=== PATIENT | female | born 1940 | race American Indian/Alaskan Native ===

== ENCOUNTER 2018-02-17 22:11 | Inpatient (IN) | payer MEDICAID, MEDICARE ==
[2018-02-17 22:16] VITALS: BMI 27.8
--- NOTE | 2018-02-17 22:34 | ED PDOC ---
Arrival/HPI - General Chief Complaint: Respiratory Distress Time Seen by Provider: 02/17/18 22:30 Historian: Patient, Intermediate - History of Present Illness Narrative History of Present Illness (Text): 02/17/18 22:30 Thao Bishop is a 77 year old female, whose past medical history include NSTEMI, COPD, CHF, respiratory failure, hypertension, diabetes, hyperlipidemia, sacral decubitus, schizophrenia, and dementia, who presents to the ED sent from intermediate for worsening shortness of breath. As per intermediate notes, patient was recently discharged from [facility] following transfer from [facility] for acute respiratory failure/NSTEMI. Patient was recently extubated on 02/06/2018. Limited HPI and ROS secondary to patient's dementia. Symptom Onset: Gradual Symptom Course: Worsening Activities at Onset: Light Context: Home Past Medical History - Provider Review Nursing Documentation Reviewed: Yes - Infectious Disease Hx of Infectious Diseases: None - Cardiac Hx Congestive Heart Failure: Yes Hx Hypertension: Yes Other/Comment: NSTEMI - Pulmonary Hx Chronic Obstructive Pulmonary Disease (COPD): Yes - Neurological Hx Dementia: Yes - Endocrine/Metabolic Hx Diabetes Mellitus Type 2: Yes - Hematological/Oncological Hx Anemia: Yes - Musculoskeletal/Rheumatological Other/Comment: Sacral pressure ulcer - Psychiatric Hx Schizophrenia: Yes Hx Substance Use: No - Anesthesia Hx Anesthesia: No Family/Social History - Physician Review Nursing Documentation Reviewed: Yes Family/Social History: Unknown Family HX Smoking Status: Never Smoked Hx Alcohol Use: No Hx Substance Use: No Allergies/Home Meds Allergies/Adverse Reactions: Allergies No Known Allergies Allergy (Verified 02/17/18 22:16) Review of Systems - Review of Systems Systems not reviewed;Unavailable: Dementia Respiratory: SOB Physical Exam Vital Signs Reviewed: Yes Vital Signs Pulse Resp BP Pulse Ox 02/17/18 22:23 89 26 H 174/96 H 100 Temperature: Afebrile Blood Pressure: Hypertensive Pulse: Regular Respiratory Rate: Normal Appearance: Positive for: Non-Toxic, Comfortable Pain Distress: None Mental Status: Positive for: other (Alert) - Systems Exam Head: Present: Atraumatic, Normocephalic Pupils: Present: PERRL Extroacular Muscles: Present: EOMI Conjunctiva: Present: Normal Mouth: Present: Moist Mucous Membranes Neck: Present: Normal Range of Motion Respiratory/Chest: Present: Decreased Breath Sounds (Decreased breath sounds bilaterally). No: Respiratory Distress, Accessory Muscle Use Cardiovascular: Present: Regular Rate and Rhythm, Normal S1, S2. No: Murmurs Abdomen: No: Tenderness, Distention, Peritoneal Signs Back: Present: Normal Inspection Upper Extremity: Present: Normal Inspection. No: Cyanosis, Edema Lower Extremity: Present: Normal Inspection. No: Edema Neurological: Present: GCS=15, CN II-XII Intact Skin: Present: Warm, Dry, Normal Color. No: Rashes Psychiatric: Present: Alert Medical Decision Making ED Course and Treatment: 02/17/18 22:30 Impression: 77 year old female brought in by EMS sent from intermediate for shortness of breath. Plan: -- EKG -- CXR -- Labs, cardiac enzymes, BNP -- Reassess and disposition Prior Visits: Notes and results from previous visits were reviewed. Progress Notes: Reviewed EKG, NSR at [address] bpm[address] Non-specific ST/T wave changes. 02/17/18 23:05 CXR reviewed, shows mildly increased pulmonary vascular markings. 02/18/18 00:[address] Granados, seat cover installer, who is aware and agrees to evaluate pt. president and chief operating officer notified. 02/18/18 01:[address] Granados, present in ED to evaluate pt. States pt can go to a telemetry bed. 02/18/18 01:[address] Rodriguez, who is aware and agrees with plan. Accepts pt in to her service. Pt will be admitted to Telemetry for COPD exacerbation and CHF. 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 I have reviewed the chart and agree that the record accurately reflects my personal performance of the history, physical exam, medical decision making, and the department course for this patient. I have also personally directed, reviewed, and agree with the discharge instructions and disposition. Disposition/Present on Arrival - Present on Arrival Any Indicators Present on Arrival: No History of DVT/PE: No History of Uncontrolled Diabetes: Yes Urinary Catheter: No History of Decub. Ulcer: No History Surgical Site Infection Following: None - Disposition Have Diagnosis and Disposition been Completed?: Yes Diagnosis: COPD exacerbation, CHF (congestive heart failure) Disposition: HOSPITALIZED Disposition Time: :44 Patient Plan: Admission Condition: STABLE Discharge Instructions (ExitCare): Heart Failure (ED) Referrals: Deon Swenson MD [Primary Care Provider] - Follow up with primary Forms: [employer] (Bhutanese)
[2018-02-17 23:06] LABS: HEMOGLOBIN 10.1 g/dL (12.0-16.0); MEAN CELL VOLUME 94.7 fl (80.0-105.0); MEAN CORPUSCULAR HEMOGLOBIN 29.9 pg (25.0-35.0); MEAN CORPUSCULAR HGB CONC 31.6 g/dl (31.0-37.0); MEAN PLATELET VOLUME 11.6 fl (7.0-11.0); RBC 3.38 10^6/uL (3.5-6.1); RED CELL DISTRIBUTION WIDTH 13.9 % (11.5-14.5); WHITE BLOOD COUNT 7.2 10^3/ul (4.5-11.0)
[2018-02-17] MEDS ORDERED: Albuterol-Ipratrop 3 mg / 0.5 (3 ml) UD IH STA (23:10)
[2018-02-17 23:15] LABS: INR 1.01; PROTHROMBIN TIME 11.5 SECONDS (9.4-12.5)
[2018-02-17 23:25] LABS: ALB/GLOB RATIO 1.3 (1.1-1.8); ALBUMIN 4.3 g/dL (3.0-4.8); ALT/SGPT 44 U/L (7-56); AST/SGOT 50 U/L (14-36); BLOOD UREA NITROGEN 41 mg/dL (7-21); CALCIUM 9.6 mg/dL (8.4-10.5); GFR NON-AFRICAN AMERICAN > 60
[2018-02-17 23:28] LABS: B-TYPE NATRIURETIC PEPTIDE 3810 pg/mL (0-450); TROPONIN I 0.02 ng/mL
[2018-02-17 23:50] LABS: ARTERIAL BLOOD GAS HCO3 37.9 mmol/L (21-28); ARTERIAL BLOOD GAS HEMOGLOBIN 8.6 g/dL (11.7-17.4); ARTERIAL BLOOD GAS O2 CAPACITY 12.8 mL/dl (16-24); ARTERIAL BLOOD GAS O2 CONTENT 12.8 ML/dl (15-23); ARTERIAL BLOOD GAS O2 SAT 99.9 % (95-98); ARTERIAL BLOOD GAS PCO2 64 mm/Hg (35-45); ARTERIAL BLOOD GAS PH 7.38 (7.35-7.45); ARTERIAL BLOOD GAS TCO2 39.9 mmol.L (22-28)
[2018-02-18] MEDS ORDERED: Albuterol-Ipratrop 3 mg / 0.5 (3 ml) UD IH STA (01:04)
[2018-02-18] MEDS ORDERED: Albuterol-Ipratrop 3 mg / 0.5 (3 ml) UD IH PRN (01:42)
--- NOTE | 2018-02-18 03:06 | CP.PCM.CON ---
<Isidro Warren - Last Filed: 02/18/18 04:04> History of Present Illness - History of Present Illness History of Present Illness: Isidro Warren PGY1 Consult Note for Dr Granados Pt is a 77 yo female with a PMH of NSTEMI, COPD, CHF, HTN, DM, HLD, OH, sacral decubitus ulcer, schizophrenia and dementia who presents to the ED from the residential with complaints of SOB relieved with BiPAP. ICU consulted for SOB. Pt recently had an OH on December 21, while in [facility], she has recently been at the residential. While at the residential at about 8pm the pt started complaining of SOB to her daughter. Pt's daughter Randy is present at bedside relating the history. She states that the pt had a cough but was not producing sputum. Pt normally uses BiPAP at night, and reported that she was having trouble breathing, SOB. Pt denies fever, chills, chest pain. A 12 point ROS was obtained and added to the HPI where appropriate. PMH: NSTEMI, COPD, CHF, HTN, DM, HLD, OH, sacral decubitus ulcer, schizophrenia and dementia PSH: breast lumpectomy 9 years ago FH: Mother "heart issues" SH: tobacco 1ppd for 25y quit 10 years ago, denies alcohol, denies drugs Home meds: please refer to chart Allergies: NKDA Review of Systems - Review of Systems Review of Systems: a 12 point ROS was obtained and added to the HPI where appropriate Past Patient History - Infectious Disease Hx of Infectious Diseases: None - Past Social History Smoking Status: Never Smoked - CARDIAC Hx Congestive Heart Failure: Yes Hx Hypertension: Yes Other/Comment: NSTEMI - PULMONARY Hx Chronic Obstructive Pulmonary Disease (COPD): Yes - NEUROLOGICAL Hx Dementia: Yes - ENDOCRINE/METABOLIC Hx Diabetes Mellitus Type 2: Yes - HEMATOLOGICAL/ONCOLOGICAL Hx Anemia: Yes - MUSCULOSKELETAL/RHEUMATOLOGICAL Other/Comment: Sacral pressure ulcer - PSYCHIATRIC Hx Schizophrenia: Yes Hx Substance Use: No - ANESTHESIA Hx Anesthesia: No Meds Allergies/Adverse Reactions: Allergies Allergy/AdvReac Type Severity Reaction Status Date / Time No Known Allergies Allergy Verified 02/17/18 22:16 - Medications Medications: Current Medications Albuterol/Ipratropium (Duoneb 3 Mg/0.5 Mg (3 Ml) Ud) 3 ml IH Q4H PRN PRN Reason: Shortness of Breath Physical Exam - Head Exam Head Exam: ATRAUMATIC, NORMOCEPHALIC - Eye Exam Eye Exam: absent: Scleral icterus - ENT Exam ENT Exam: Mucous Membranes Moist - Respiratory Exam Respiratory Exam: Clear to Auscultation Bilateral. absent: Accessory Muscle U se, Respiratory Distress Additional comments: on BiPAP - Cardiovascular Exam Cardiovascular Exam: RRR, +S1, +S2 - GI/Abdominal Exam GI & Abdominal Exam: Normal Bowel Sounds, Soft. absent: Tenderness - Extremities Exam Extremities exam: Negative for: calf tenderness - Neurological Exam Neurological exam: Oriented x3 Results - Vital Signs Recent Vital Signs: Last Vital Signs Temp Pulse 75 02/18/18 02:04 Resp 22 02/18/18 01:05 BP 148/64 02/18/18 02:00 Pulse Ox 99 02/18/18 01:05 - Labs Result Diagrams: 02/17/18 22:55 02/17/18 22:55 Labs: Laboratory Results - last 24 hr 02/17/18 02/17/18 02/17/18 22:55 22:55 22:55 WBC 7.2 RBC 3.38 L Hgb 10.1 L Hct 32.0 L MCV 94.7 MCH 29.9 MCHC 31.6 RDW 13.9 Plt Count 177 MPV 11.6 H PT 11.5 INR 1.01 APTT 27.0 pCO2 pO2 HCO3 ABG pH ABG Total CO2 ABG O2 Saturation ABG O2 Content ABG Base Excess ABG Hemoglobin ABG Carboxyhemoglobin POC ABG HHb (Measured) ABG Methemoglobin ABG O2 Capacity Hgb O2 Saturation FiO2 Sodium 140 Potassium 3.8 Chloride 95 L Carbon Dioxide 36 H Anion Gap 13 BUN 41 H Creatinine 0.9 Est GFR ( Amer) > 60 Est GFR (Non-Af Amer) > 60 Random Glucose 340 H* Calcium 9.6 Total Bilirubin 0.6 AST 50 H ALT 44 Alkaline Phosphatase 85 Lactate Dehydrogenase 626 Total Creatine Kinase 21 L Troponin I 0.02 NT-Pro-B Natriuret Pep 3810 H Total Protein 7.6 Albumin 4.3 Globulin 3.4 Albumin/Globulin Ratio 1.3 02/17/18 23:30 WBC RBC Hgb Hct MCV MCH MCHC RDW Plt Count MPV PT INR APTT pCO2 64 H pO2 386.0 H HCO3 37.9 H ABG pH 7.38 ABG Total CO2 39.9 H ABG O2 Saturation 99.9 H ABG O2 Content 12.8 L ABG Base Excess 11.2 H ABG Hemoglobin 8.6 L ABG Carboxyhemoglobin 1.5 POC ABG HHb (Measured) 0.1 ABG Methemoglobin 1.2 ABG O2 Capacity 12.8 L Hgb O2 Saturation 97.3 FiO2 100.0 Sodium Potassium Chloride Carbon Dioxide Anion Gap BUN Creatinine Est GFR ( Amer) Est GFR (Non-Af Amer) Random Glucose Calcium Total Bilirubin AST ALT Alkaline Phosphatase Lactate Dehydrogenase Total Creatine Kinase Troponin I NT-Pro-B Natriuret Pep Total Protein Albumin Globulin Albumin/Globulin Ratio Assessment & Plan - Assessment and Plan (Free Text) Assessment: Pt is a 77 yo female with a PMH of NSTEMI, COPD, CHF, HTN, DM, HLD, OH, sacral decubitus ulcer, schizophrenia and dementia who presents to the ED from the residential with complaints of SOB relieved with BiPAP. ICU consulted for SOB. Plan: Likely COPD exacerbation vs CHF vs LAXMI COPD exacerbation would recommend steroids, duonebs CHF exacerbation - can increase the dose of home lasix - recommend stict I/O, daily wt - recommend Na restriction and fluid restriction LAXMI - can continue with nightly BiPAP - ABG noted adn reviewed, AAOx3 DM - can continue with ISS for now and diabetic diet HTN - please continue with home meds CAD - please continue home meds Would recommend GI and DVT ppx, please monitor on Tele Please reconsult ICU if needed Pt seen, examined, assessment and plan discussed with Dr Darwin Warren PGY1, Internal Medicine Resident - Date & Time Date: 02/18/18 Time: 04:03 <Farida Granados - Last Filed: 02/18/18 07:00> Meds - Medications Medications: Current Medications Albuterol/Ipratropium (Duoneb 3 Mg/0.5 Mg (3 Ml) Ud) 3 ml IH Q4H PRN PRN Reason: Shortness of Breath Results - Vital Signs Recent Vital Signs: Last Vital Signs Temp 99.1 F 02/18/18 06:00 Pulse 75 02/18/18 06:00 Resp 20 02/18/18 06:00 BP 153/72 H 02/18/18 06:00 Pulse Ox 100 02/18/18 04:09 - Labs Result Diagrams: 02/17/18 22:55 02/17/18 22:55 Labs: Laboratory Results - last 24 hr 02/17/18 02/17/18 02/17/18 22:55 22:55 22:55 WBC 7.2 RBC 3.38 L Hgb 10.1 L Hct 32.0 L MCV 94.7 MCH 29.9 MCHC 31.6 RDW 13.9 Plt Count 177 MPV 11.6 H PT 11.5 INR 1.01 APTT 27.0 pCO2 pO2 HCO3 ABG pH ABG Total CO2 ABG O2 Saturation ABG O2 Content ABG Base Excess ABG Hemoglobin ABG Carboxyhemoglobin POC ABG HHb (Measured) ABG Methemoglobin ABG O2 Capacity Hgb O2 Saturation FiO2 Sodium 140 Potassium 3.8 Chloride 95 L Carbon Dioxide 36 H Anion Gap 13 BUN 41 H Creatinine 0.9 Est GFR ( Amer) > 60 Est GFR (Non-Af Amer) > 60 Random Glucose 340 H* Calcium 9.6 Total Bilirubin 0.6 AST 50 H ALT 44 Alkaline Phosphatase 85 Lactate Dehydrogenase 626 Total Creatine Kinase 21 L Troponin I 0.02 NT-Pro-B Natriuret Pep 3810 H Total Protein 7.6 Albumin 4.3 Globulin 3.4 Albumin/Globulin Ratio 1.3 02/17/18 23:30 WBC RBC Hgb Hct MCV MCH MCHC RDW Plt Count MPV PT INR APTT pCO2 64 H pO2 386.0 H HCO3 37.9 H ABG pH 7.38 ABG Total CO2 39.9 H ABG O2 Saturation 99.9 H ABG O2 Content 12.8 L ABG Base Excess 11.2 H ABG Hemoglobin 8.6 L ABG Carboxyhemoglobin 1.5 POC ABG HHb (Measured) 0.1 ABG Methemoglobin 1.2 ABG O2 Capacity 12.8 L Hgb O2 Saturation 97.3 FiO2 100.0 Sodium Potassium Chloride Carbon Dioxide Anion Gap BUN Creatinine Est GFR ( Amer) Est GFR (Non-Af Amer) Random Glucose Calcium Total Bilirubin AST ALT Alkaline Phosphatase Lactate Dehydrogenase Total Creatine Kinase Troponin I NT-Pro-B Natriuret Pep Total Protein Albumin Globulin Albumin/Globulin Ratio Attending/Attestation - Attestation I have personally seen and examined this patient.: Yes I have fully participated in the care of the patient.: Yes I have reviewed all pertinent clinical information: Yes Notes (Text): 02/18/18 07:00 Patient was seen when she was in the ER. Agree with history,physical examination,assessment and plan.
[2018-02-18] MEDS ORDERED: Albuterol-Ipratrop 3 mg / 0.5 (3 ml) UD IH SCH (06:00)
[2018-02-18] MEDS ORDERED: MethylPREDNISolone 40 mg Vial IVP SCH (06:00)
[2018-02-18] MEDS ORDERED: guaiFENesin DM 100 mg-10 mg/5 ml UD PO PRN (08:45)
--- NOTE | 2018-02-18 09:31 | CARD ---
APPROVED REPORT Date of service: 02/17/2018 EKG Measurement Heart [id number] <Conclusion> Normal sinus rhythm PRWP V 1 - 4 NSSTW changes Prolonged QTc
[2018-02-18] MEDS ORDERED: Enoxaparin 40 mg Syringe SC SCH (10:00)
[2018-02-18 10:06] LABS: IRON 33 ug/dL (45-180)
[2018-02-18 10:15] LABS: % IRON SATURATION 11 % (20-55); TOTAL IRON BINDING CAPACITY 296 ug/dL (265-497)
[2018-02-18] MEDS: cefTRIAXone 1 gm 1 GM/100 ML BAG IVPB SCH (10:52)
[2018-02-18] MEDS ORDERED: Insulin Reg-MEDIUM-Coverage SC SCH (11:30)
--- NOTE | 2018-02-18 13:27 | RAD ---
Date of service: 02/17/2018 HISTORY: Shortness of breath. COMPARISON: No prior. FINDINGS: LUNGS: No active pulmonary disease. PLEURA: No significant pleural effusion identified, no pneumothorax apparent. CARDIOVASCULAR: No radiographic findings to suggest acute or significant cardiovascular disease. OSSEOUS STRUCTURES: No significant abnormalities. VISUALIZED UPPER ABDOMEN: Normal. OTHER FINDINGS: None. IMPRESSION: No active disease.
[2018-02-18] MEDS ORDERED: Insulin Detemir 100 units/ml Vial (Levemir) SC ONE (13:32)
[2018-02-18] MEDS: Levalbuterol 0.63 MG/3 ML Inhal Soln UD IH SCH ×2 (13:32→19:35)
[2018-02-18] MEDS ORDERED: Insulin Lispro 1 UNITS/0.01 ML SC ONE (13:35)
[2018-02-18] MEDS: MethylPREDNISolone 40 mg Vial IVP SCH ×2 (13:50→18:35)
[2018-02-18 17:14] LABS: FOLATE > 20.0 ng/mL
[2018-02-18] MEDS: Insulin Reg-HIGH-Coverage SC SCH ×2 (17:14→22:38)
[2018-02-18] MEDS ORDERED: Insulin Regular 1 UNITS/0.01 ML ML IV ONE (18:41)
[2018-02-18] MEDS: Budesonide 0.25 mg/2 ml Inhal Susp UD IH SCH (19:35)
[2018-02-18] MEDS: Arformoterol 15 mcg/2 ml Inh Sol IH SCH (19:35)
[2018-02-18] MEDS ORDERED: Arformoterol 15 mcg/2 ml Inh Sol IH SCH (20:00)
[2018-02-18] MEDS ORDERED: Insulin Regular 1 UNITS/0.01 ML ML IV STA (20:22)
[2018-02-18] MEDS: Sodium Chloride 0.45% 1,000 ML IV SCH (20:41)
[2018-02-18] MEDS ORDERED: Insulin Regular 100 UNITS in Sodium Chloride 0.9% 99 ML IV PRN (21:46)
[2018-02-18] MEDS: Insulin Detemir 100 units/ml Vial (Levemir) SC SCH (22:37)
--- NOTE | 2018-02-19 00:28 | CP.PCM.CON ---
<Laith Daviesophe - Last Filed: 02/19/18 00:25> History of Present Illness - History of Present Illness History of Present Illness: Edgard Davies PGY 2 - IM Resident - ICU Consult Note for Dr. Granados Consult: Hyperglycemia >500 requiring Insulin gtt HPI: 77 yo female with a PMH of NSTEMI, COPD, CHF, HTN, DM, HLD, NE, sacral decubitus ulcer, schizophrenia and dementia who was admitted for shortness of breath. Patient admitted for COPD exacerbation. Patient placed on steroids. Patient blood glucose showing elevation over course of admission with insulin coverage likely secondary to steroid administration. Patient noted to have elevated glucose of >500 without evidence of anion gap. Patient was placed on insulin drip and transferred to ICU for further monitoring. Patient denies chest pain, shortness of breath, abdominal pain, nausea, vomiting, fever, chills. PMH: NSTEMI, COPD, CHF, HTN, DM, HLD, NE, sacral decubitus ulcer, schizophrenia and dementia PSH: breast lumpectomy 9 years ago FH: Mother "heart issues" SH: tobacco 1ppd for 25y quit 10 years ago, denies alcohol, denies drugs Home meds: please refer to chart Allergies: NKDA Review of Systems - Review of Systems All systems: reviewed and no additional remarkable complaints except (as mentioned in HPI) Past Patient History - Infectious Disease Hx of Infectious Diseases: None - Past Social History Smoking Status: Never Smoked - CARDIAC Hx Congestive Heart Failure: Yes Hx Hypertension: Yes Other/Comment: NSTEMI - PULMONARY Hx Chronic Obstructive Pulmonary Disease (COPD): Yes - NEUROLOGICAL Hx Dementia: Yes - HEENT Hx HEENT Problems: No - RENAL Hx Chronic Kidney Disease: No - ENDOCRINE/METABOLIC Hx Diabetes Mellitus Type 2: Yes - HEMATOLOGICAL/ONCOLOGICAL Hx Anemia: Yes - INTEGUMENTARY Hx Dermatological Problems: No - MUSCULOSKELETAL/RHEUMATOLOGICAL Other/Comment: Sacral pressure ulcer - GASTROINTESTINAL Hx Gastrointestinal Disorders: No - GENITOURINARY/GYNECOLOGICAL Hx Genitourinary Disorders: No - PSYCHIATRIC Hx Schizophrenia: Yes Hx Substance Use: No - SURGICAL HISTORY Hx Surgeries: No - ANESTHESIA Hx Anesthesia: No Meds Allergies/Adverse Reactions: Allergies Allergy/AdvReac Type Severity Reaction Status Date / Time No Known Allergies Allergy Verified 02/17/18 22:16 - Medications Medications: Current Medications Acetaminophen (Tylenol 325mg Tab) 650 mg PO Q6H PRN PRN Reason: Fever >100.4 F Arformoterol Tartrate (Brovana) 15 mcg IH [id number] [facility] Last Admin: 02/18/18 19:35 Dose: 15 mcg Aspirin (Ecotrin) 81 mg PO DAILY [facility] Budesonide (Pulmicort Respules) 0.25 mg IH [id number] [facility] Last Admin: 02/18/18 19:35 Dose: 0.25 mg Clopidogrel Bisulfate (Plavix) 75 mg PO DAILY [facility] Guaifenesin/Dextromethorphan (Robitussin Dm) 5 ml PO Q4H PRN PRN Reason: Cough Hydralazine HCl (Apresoline) 10 mg IVP Q6 PRN PRN Reason: Systolic Blood Pressure Ceftriaxone Sodium (Rocephin 1 Gram Ivpb) 1 gm in 100 mls @ 100 mls/hr IVPB DAILY [facility]; Protocol Last Admin: 02/18/18 10:52 Dose: 100 mls/hr Sodium Chloride (Sodium Chloride 0.45%) 1,000 mls @ 50 mls/hr IV .Q20H [facility] Last Admin: 02/18/18 20:41 Dose: 50 mls/hr Insulin Human Regular 100 (units/ Sodium Chloride) 100 mls @ 10 mls/hr IV .Q10H PRN; Protocol PRN Reason: TITRATE PER MD ORDER Insulin Detemir (Levemir) 25 unit SC BRK [facility] Insulin Detemir (Levemir) 25 unit SC HS [facility] Last Admin: 02/18/18 22:37 Dose: 25 units Insulin Human Regular (Humulin R High) 0 units SC ACHS [facility]; Protocol Last Admin: 02/18/18 22:38 Dose: 4 unit Levalbuterol HCl (Xopenex) 0.63 mg IH [id number] [facility] Last Admin: 02/18/18 19:35 Dose: 0.63 mg Methylprednisolone (Solu-Medrol) 40 mg IVP Q8H [facility] Last Admin: 02/18/18 18:35 Dose: 40 mg Physical Exam - Head Exam Head Exam: ATRAUMATIC, NORMAL INSPECTION, NORMOCEPHALIC - Eye Exam Eye Exam: PERRL - ENT Exam ENT Exam: Mucous Membranes Moist, Normal External Ear Exam, Normal Oropharynx - Neck Exam Neck exam: Positive for: Full Rom - Respiratory Exam Respiratory Exam: Clear to Auscultation Bilateral, NORMAL BREATHING PATTERN. absent: Rales, Rhonchi, Wheezes, Stridor - Cardiovascular Exam Cardiovascular Exam: REGULAR RHYTHM, +S1, +S2 - GI/Abdominal Exam GI & Abdominal Exam: Normal Bowel Sounds, Soft - Neurological Exam Neurological exam: Alert, Oriented x3 - Psychiatric Exam Psychiatric exam: Normal Affect, Normal Mood - Skin Skin Exam: Dry, Intact Results - Vital Signs Recent Vital Signs: Last Vital Signs Temp 98.7 F 02/18/18 17:59 Pulse 102 H 02/18/18 18:00 Resp 20 02/18/18 17:59 BP 154/70 H 02/18/18 17:59 Pulse Ox 100 02/18/18 17:59 - Labs Result Diagrams: 02/17/18 22:55 02/18/18 17:25 Labs: Laboratory Results - last 24 hr 02/18/18 02/18/18 02/18/18 09:30 09:30 09:30 POC Glucose (mg/dL) Random Glucose Iron 33 L TIBC 296 % Saturation 11 L Ferritin 115.0 Vitamin B12 828 Folate > 20.0 Thyroxine (T4) 16.9 H 02/18/18 02/18/18 02/18/18 12:33 12:35 13:26 POC Glucose (mg/dL) > 500 H* 478 H* > 500 H* Random Glucose Iron TIBC % Saturation Ferritin Vitamin B12 Folate Thyroxine (T4) 02/18/18 02/18/18 02/18/18 15:12 17:05 17:07 POC Glucose (mg/dL) > 500 H* > 500 H* > 500 H* Random Glucose Iron TIBC % Saturation Ferritin Vitamin B12 Folate Thyroxine (T4) 02/18/18 02/18/18 02/18/18 17:25 20:09 21:21 POC Glucose (mg/dL) 489 H* > 500 H* Random Glucose 579 H* D Iron TIBC % Saturation Ferritin Vitamin B12 Folate Thyroxine (T4) 02/18/18 02/18/18 22:27 23:38 POC Glucose (mg/dL) 470 H* 440 H* Random Glucose Iron TIBC % Saturation Ferritin Vitamin B12 Folate Thyroxine (T4) Assessment & Plan - Assessment and Plan (Free Text) Assessment: 77 yo female with a PMH of NSTEMI, COPD, CHF, HTN, DM, HLD, NE, sacral decubitus ulcer, schizophrenia and dementia with hyperglycemia. Patient placed on insulin gtt as ordered by primary care and thus to be transferred to ICU for management Plan: Neuro - AAOx3 - Patient with hx of dementia, unknown baseline - Monitor for neuro changes Cardiovascular HTN - Hydralazine prn when SBP >180 - Maintain MAP >65mmHg CHF - s - last echo showing EF - continue - Strict I/O - Daily weights Hx of CAD -continue aspirin, plavix Pulmonary - Maintain SaO2 88-92% - Continue nasal cannula - Continue with biPAP COPD exacerbation - Continue methylprednisoolne 40mg Q8H - Continue duoneb treatments - Rocephin 1gm Daily - Brovana, Pulmicort, Xopenex GI - Protonix - Monitor bm - Zofran for nausea Heme - H/H stable, VSS - Hemodynamically stable - Anemia, likely acute on chronic anemia - monitor, transfuse for goal of Hbg >8 Endo DM2 with hyperglycemia without evidence of AG MA - NPO, IVF 50mL/Hr NS - Levemir 25 BID as per primary - IV insulin gtt - Glucose finger stick Q1H while on inuslin gtt - Stop insulin gtt when blood glucose is <300 - Q4H - ISS high after insulin gtt turned off ID - Afebrile - No leukocytosis Psych -hx of schizophrenia, dementia -psych following, f/u recs DVT ppx: SCD GI ppx: Protonix Diet: NPO Patient seen, case and plan discussed with attending, Dr. Granados - Date & Time Date: 02/19/18 Time: 00:29 <Farida Granados - Last Filed: 02/19/18 03:53> Meds - Medications Medications: Current Medications Acetaminophen (Tylenol 325mg Tab) 650 mg PO Q6H PRN PRN Reason: Fever >100.4 F Arformoterol Tartrate (Brovana) 15 mcg IH [id number] [facility] Last Admin: 02/18/18 19:35 Dose: 15 mcg Aspirin (Ecotrin) 81 mg PO DAILY [facility] Budesonide (Pulmicort Respules) 0.25 mg IH [id number] [facility] Last Admin: 02/18/18 19:35 Dose: 0.25 mg Clopidogrel Bisulfate (Plavix) 75 mg PO DAILY [facility] Guaifenesin/Dextromethorphan (Robitussin Dm) 5 ml PO Q4H PRN PRN Reason: Cough Hydralazine HCl (Apresoline) 10 mg IVP Q6 PRN PRN Reason: Systolic Blood Pressure Last Admin: 02/19/18 02:00 Dose: 10 mg Ceftriaxone Sodium (Rocephin 1 Gram Ivpb) 1 gm in 100 mls @ 100 mls/hr IVPB DAILY [facility]; Protocol Last Admin: 02/18/18 10:52 Dose: 100 mls/hr Sodium Chloride (Sodium Chloride 0.45%) 1,000 mls @ 50 mls/hr IV .Q20H [facility] Last Admin: 02/18/18 20:41 Dose: 50 mls/hr Insulin Human Regular 100 (units/ Sodium Chloride) 100 mls @ 10 mls/hr IV .Q10H PRN; Protocol PRN Reason: TITRATE PER MD ORDER Last Admin: 02/19/18 00:30 Dose: 12 units/hr, 12 mls/hr Insulin Detemir (Levemir) 25 unit SC BRK [facility] Insulin Detemir (Levemir) 25 unit SC HS [facility] Last Admin: 02/18/18 22:37 Dose: 25 units Insulin Human Regular (Humulin R High) 0 units SC ACHS [facility]; Protocol Last Admin: 02/18/18 22:38 Dose: 4 unit Levalbuterol HCl (Xopenex) 0.63 mg IH [id number] [facility] Last Admin: 02/19/18 03:36 Dose: 0.63 mg Methylprednisolone (Solu-Medrol) 40 mg IVP Q8H [facility] Last Admin: 02/19/18 00:59 Dose: 40 mg Ondansetron HCl (Zofran Inj) 4 mg IVP Q6H PRN PRN Reason: Nausea/Vomiting Pantoprazole Sodium (Protonix Inj) 40 mg IVP DAILY [facility] Results - Vital Signs Recent Vital Signs: Last Vital Signs Temp 98.2 F 02/19/18 00:15 Pulse 91 H 02/19/18 02:00 Resp 18 02/19/18 01:30 BP 166/115 H 02/19/18 02:20 Pulse Ox 100 02/19/18 01:30 - Labs Result Diagrams: 02/17/18 22:55 02/18/18 17:25 Labs: Laboratory Results - last 24 hr 02/18/18 02/18/18 02/18/18 09:30 09:30 09:30 POC Glucose (mg/dL) Random Glucose Iron 33 L TIBC 296 % Saturation 11 L Ferritin 115.0 Vitamin B12 828 Folate > 20.0 Thyroxine (T4) 16.9 H 02/18/18 02/18/18 02/18/18 12:33 12:35 13:26 POC Glucose (mg/dL) > 500 H* 478 H* > 500 H* Random Glucose Iron TIBC % Saturation Ferritin Vitamin B12 Folate Thyroxine (T4) 02/18/18 02/18/18 02/18/18 15:12 17:05 17:07 POC Glucose (mg/dL) > 500 H* > 500 H* > 500 H* Random Glucose Iron TIBC % Saturation Ferritin Vitamin B12 Folate Thyroxine (T4) 02/18/18 02/18/18 02/18/18 17:25 20:09 21:21 POC Glucose (mg/dL) 489 H* > 500 H* Random Glucose 579 H* D Iron TIBC % Saturation Ferritin Vitamin B12 Folate Thyroxine (T4) 02/18/18 02/18/18 02/19/18 22:27 23:38 00:54 POC Glucose (mg/dL) 470 H* 440 H* 478 H* Random Glucose Iron TIBC % Saturation Ferritin Vitamin B12 Folate Thyroxine (T4) 02/19/18 02/19/18 02/19/18 01:42 02:14 03:17 POC Glucose (mg/dL) 384 H 365 H 316 H Random Glucose Iron TIBC % Saturation Ferritin Vitamin B12 Folate Thyroxine (T4) Attending/Attestation - Attestation I have personally seen and examined this patient.: Yes I have fully participated in the care of the patient.: Yes I have reviewed all pertinent clinical information: Yes
[2018-02-19] MEDS: MethylPREDNISolone 40 mg Vial IVP SCH ×3 (00:59→16:50)
[2018-02-19] MEDS: Levalbuterol 0.63 MG/3 ML Inhal Soln UD IH SCH ×4 (03:36→19:45)
[2018-02-19 06:19] LABS: HEMOGLOBIN 8.7 g/dL (12.0-16.0); MEAN CELL VOLUME 90.9 fl (80.0-105.0); MEAN CORPUSCULAR HEMOGLOBIN 29.4 pg (25.0-35.0); MEAN CORPUSCULAR HGB CONC 32.3 g/dl (31.0-37.0); MEAN PLATELET VOLUME 10.2 fl (7.0-11.0); RBC 2.96 10^6/uL (3.5-6.1); RED CELL DISTRIBUTION WIDTH 13.7 % (11.5-14.5); WHITE BLOOD COUNT 6.7 10^3/ul (4.5-11.0)
[2018-02-19 06:37] LABS: BLOOD UREA NITROGEN 40 mg/dL (7-21); CALCIUM 9.7 mg/dL (8.4-10.5); GFR NON-AFRICAN AMERICAN > 60
[2018-02-19] MEDS: Arformoterol 15 mcg/2 ml Inh Sol IH SCH ×2 (07:59→19:45)
[2018-02-19] MEDS: Budesonide 0.25 mg/2 ml Inhal Susp UD IH SCH ×2 (07:59→19:45)
--- NOTE | 2018-02-19 09:08 | CARD ---
APPROVED REPORT Date of service: 02/18/2018 EKG Measurement Heart [id number] <Conclusion> Normal sinus rhythm PRWP STTW changes c/w ischemia Q in lll
[2018-02-19] MEDS: cefTRIAXone 1 gm 1 GM/100 ML BAG IVPB SCH (09:17)
[2018-02-19] MEDS: Insulin Detemir 100 units/ml Vial (Levemir) SC SCH ×2 (10:23→23:00)
[2018-02-19] MEDS: Insulin Reg-HIGH-Coverage SC SCH ×4 (10:24→23:09)
--- NOTE | 2018-02-19 12:03 | PN ---
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 No complaints of shortness of breath, cough, wheezing, chest congestion. No chest pain. No fever, chills, nausea or vomiting. The patient had breakfast this morning. No problem. The patient was transferred to the Intensive Care Unit for hyperglycemia. No metabolic acidosis, no anion gap. There was no DKA. The patient, at this time, is off the insulin drip. Her last four blood sugars were in the range of 150. The patient is stable and will be transferred back to Telemetry. PHYSICAL EXAMINATION: VITAL SIGNS: Note that her temperature is 98.2, pulse is 90, respirations are 22 and last BP is 186/82, O2 saturation is 100%. HEENT: Head is atraumatic, normocephalic. Eyes reactive to light. Ear, nose and throat seemed to be within normal limits. NECK: Supple. No JVD. No thyroid enlargement. No lymph nodes. HEART: Has regular rate and rhythm. Normal S1, S2. LUNGS: Reveal mildly decreased breath sounds at the bases. ABDOMEN: Soft. Decreased bowel sounds. GENITALIA: Deferred. RECTAL: Deferred. MUSCULOSKELETAL: No joint deformities. EXTREMITIES: Reveal 1+ lower extremity edema. NEUROLOGIC: She seems to be grossly intact. DATA: As far as her laboratories are concerned, her white count is 6.7, hemoglobin is 8.7, hematocrit 26.9 with platelets of 152,000. The patient's sodium is 138, potassium 3.5, chloride 96, CO2 of 34 with a BUN of 40, creatinine of 0.9 and a glucose of 158. IMPRESSION: As far as my impression, this patient has hyperglycemia with history of diabetes. She has mild hypokalemia as well. She has a history of chronic obstructive pulmonary disease and came in with an initial exacerbation of her chronic obstructive pulmonary disease, which seems to be much improved and corrected. The patient has a history of myocardial infarction, congestive heart failure, hypertension, schizophrenia, hyperlipidemia, sacral decubiti and dementia as well as obesity. PLAN: As far as our plan, we will continue with IV fluids. The patient is getting hydralazine, Brovana, Ecotrin, insulin for elevated blood sugars, Levemir, Plavix, Protonix, Pulmicort, cough medications, Rocephin, Solu-Medrol which is of 40 mg every 8 hours and Xopenex as well as Zofran p.r.n. We will recommend decrease in the Solu-Medrol as the patient's COPD improves and monitor the fingersticks and give subcutaneous insulin as needed. The patient is on Levemir. We will also recommend Endocrine consult and note that the patient is stable at this time. She will be transferred back to Telemetry. Jean Doll MD
[2018-02-19] MEDS: Sodium Chloride 0.45% 1,000 ML IV SCH (16:52)
--- NOTE | 2018-02-19 22:07 | HP ---
DATE OF EXAM: 02/18/2018 HISTORY OF PRESENT ILLNESS: In summary, this 77-year-old female was examined on the cardiac antonio at the [facility] on Tuesday,02/18/2018. This case was reviewed in detail with her nurse, Bri Montanez, registered nurse and Dr. Leandro Emery, emergency room physician. The patient presented to the [facility] late last evening. She [place] [facility] for further evaluation of respiratory distress. According to her EMR, she has a past medical history of a non-STEMI GA, COPD, congestive heart failure, respiratory failure, hypertension, longstanding diabetes mellitus, hyperlipidemia, sacral decubiti, schizophrenia, dementia, and history of chronic glaucoma. She was recently hospitalized at [facility] where she was transferred from [facility] with acute respiratory failure and a non-STEMI GA. The patient required intubation, was extubated on approximately 02/06/2018 and then experienced respiratory distress at the local jail last night. On questioning the patient, at present, she is alert but confused and according to her EMR, has a history of chronic dementia, COPD, and apparently never smoked, does not drink, and has no history of IV drug misuse. ALLERGIES: THERE ARE NO REPORTS OF ALLERGIES TO MEDICATION. OUTPATIENT MEDICATIONS: Unclear at present. REVIEW OF SYSTEMS: CONSTITUTIONAL: There were no reports of fever or chills. HEAD: No history of recent head trauma or seizure. EYES: History of cataracts and poor visual acuity, history of glaucoma. EARS: No hearing loss. THROAT: No swallowing difficulty. NECK: No stiffness. CARDIAC: Chronic hypertension and non-STEMI GA. PULMONARY: COPD. No hemoptysis. GASTROINTESTINAL: No GERD. GENITOURINARY: No dysuria. SKIN: No rash. VASCULAR: No reports of claudication. PSYCHOLOGICAL: Dementia. VASCULAR: No claudication. ENDOCRINOLOGIC: Insulin-dependent diabetes mellitus. MUSCULOSKELETAL: Degenerative arthritis. FAMILY HISTORY: Noncontributory. PHYSICAL EXAMINATION: VITAL SIGNS: At the present time, the patient was in a normal sinus rhythm on the monitor tech. Temperature was 97.9, respirations 18, pulse 78, blood pressure 148/66. Pulse ox was 100% on BiPAP. HEENT: Head: Normocephalic, atraumatic. Eyes: No icterus. Ears: Clear. Throat: Noninjected. NECK: Supple. HEART: With S1, S2. No pathological rubs, murmurs, or gallops. LUNGS: With rhonchi and expiratory wheezing, cleared with coughing. ABDOMEN: Soft. EXTREMITIES: No edema. She was wearing heel cradles. VASCULAR: Legs warm to touch. PSYCHOLOGICAL: Alert but confused. NEUROLOGIC: She was able to move all four extremities on command. LABORATORY DATA: Sodium 138, K 3.5, chloride 96, bicarb 34, BUN 40, creatinine 0.9, random blood sugar was 159. Her white count 7200, hemoglobin 10.1, hematocrit 32, MCV 94.7, platelets 177,000. PT/INR 1.01, PTT 27. EKG was reviewed. It showed normal sinus rhythm with nonspecific ST-T wave changes. Chest x-ray was reviewed. It showed no active pulmonary disease. There was no pneumothorax, no effusion, no obvious congestive heart failure or infiltrate. IMPRESSION: A 77-year-old female with exacerbation of chronic obstructive pulmonary disease and history of [id number] myocardial infarction, history of chronic obstructive pulmonary disease, respiratory failure that required intubation in the past with history of dementia, organic brain syndrome, cataracts, and glaucoma. PLAN: To continue pulmonary toiletry with Brovana, Pulmicort, and Xopenex inhalational therapy. The patient is ordered to receive Ecotrin, insulin coverage, Levemir insulin, Plavix, Protonix, Robitussin, IV Rocephin, IV Solu-Medrol, Tylenol, and p.r.n. Zofran. She is ordered to have heart-healthy diabetic diet, BiPAP, strict I's and O's, and I have asked her nurse to reach out to family to have them bring eyedrops from home and administer as labeled. Based on her clinical progress, additional diagnostic testing and workup will be entertained. Greater than 75 minutes was spent in the care management, review of labs, orders, x-rays, and discussion of this patient with nursing and emergency room physician. All questions were answered. Mikayla Rodriguez MD [facility] # [id number] [place]
[2018-02-19] MEDS: Latanoprost 2.5 ml Opht Soln OU SCH (22:13)
[2018-02-20] MEDS ORDERED: Metoprolol 1 mg/ml Inj IVP STA (00:06)
[2018-02-20] MEDS: MethylPREDNISolone 40 mg Vial IVP SCH ×4 (00:38→18:55)
[2018-02-20] MEDS: Levalbuterol 0.63 MG/3 ML Inhal Soln UD IH SCH ×4 (02:20→20:05)
[2018-02-20] MEDS: Arformoterol 15 mcg/2 ml Inh Sol IH SCH ×2 (07:35→20:05)
[2018-02-20] MEDS: Budesonide 0.25 mg/2 ml Inhal Susp UD IH SCH ×2 (07:35→20:05)
[2018-02-20] MEDS: Insulin Detemir 100 units/ml Vial (Levemir) SC SCH ×2 (08:59→22:05)
[2018-02-20] MEDS: Insulin Reg-HIGH-Coverage SC SCH ×4 (08:59→22:04)
[2018-02-20] MEDS: cefTRIAXone 1 gm 1 GM/100 ML BAG IVPB SCH (09:02)
[2018-02-20] MEDS: Brimonidine 0.15% 50 DROP/5 ML BOTTLE OU SCH (10:56)
[2018-02-20] MEDS: Nitroglycerin 2% Ointment Foilpak UD TOP PRN (12:33)
[2018-02-20] MEDS: Latanoprost 2.5 ml Opht Soln OU SCH (22:03)
[2018-02-21] MEDS: Levalbuterol 0.63 MG/3 ML Inhal Soln UD IH SCH ×4 (03:10→19:58)
[2018-02-21] MEDS: MethylPREDNISolone 40 mg Vial IVP SCH ×3 (04:00→22:02)
[2018-02-21] MEDS: Nitroglycerin 2% Ointment Foilpak UD TOP PRN ×2 (05:48→17:36)
[2018-02-21 07:03] LABS: HEMOGLOBIN 8.6 g/dL (12.0-16.0); MEAN CELL VOLUME 92.2 fl (80.0-105.0); MEAN CORPUSCULAR HEMOGLOBIN 29.4 pg (25.0-35.0); MEAN CORPUSCULAR HGB CONC 31.9 g/dl (31.0-37.0); RBC 2.93 10^6/uL (3.5-6.1); RED CELL DISTRIBUTION WIDTH 14.2 % (11.5-14.5); WHITE BLOOD COUNT 8.4 10^3/ul (4.5-11.0)
[2018-02-21 07:11] LABS: BLOOD UREA NITROGEN 43 mg/dL (7-21); CALCIUM 9.7 mg/dL (8.4-10.5); GFR NON-AFRICAN AMERICAN > 60
[2018-02-21] MEDS: Insulin Reg-HIGH-Coverage SC SCH ×4 (07:30→22:00)
[2018-02-21] MEDS: Budesonide 0.25 mg/2 ml Inhal Susp UD IH SCH ×2 (08:18→20:00)
[2018-02-21] MEDS: Arformoterol 15 mcg/2 ml Inh Sol IH SCH ×2 (08:18→19:58)
[2018-02-21] MEDS: Insulin Detemir 100 units/ml Vial (Levemir) SC SCH ×2 (09:45→21:59)
[2018-02-21 10:19] LABS: IRON 38 ug/dL (45-180)
[2018-02-21] MEDS: Cefpodoxime (Vantin) 200 mg Tab PO SCH ×2 (10:27→22:01)
[2018-02-21] MEDS: Pantoprazole 40 mg EC Tab PO SCH (10:27)
[2018-02-21 10:28] LABS: % IRON SATURATION 14 % (20-55); TOTAL IRON BINDING CAPACITY 275 ug/dL (265-497)
[2018-02-21] MEDS: Brimonidine 0.15% 50 DROP/5 ML BOTTLE OU SCH (10:28)
--- NOTE | 2018-02-21 10:58 | PN ---
DATE: 02/19/2018 SUBJECTIVE: This 77-year-old female was examined in bed 1 of the Critical Care Unit at the [facility] on the morning of 02/19/2018. This was in the presence of her nurse, Serene Vail, registered nurse. The patient was transferred to the [facility] ICU last evening because of recalcitrant hyperglycemia. The patient was treated on the cardiac unit with adjusted insulins with no effect. Therefore, she was transferred and placed on an IV insulin drip and at present is showing improvement in her blood sugar control. Of note, she was admitted with acute exacerbation of chronic obstructive pulmonary disease with shortness of breath with a history of previous intubation and protracted respiratory failure in her recent past. Of note, the patient remains alert, but chronically confused and I did have a lengthy discussion with her daughter, Randy earlier today. At present, she is denying any fever, chills, chest pain or shortness of breath and on the nuclear monitoring technician has a sinus tachycardia. PHYSICAL EXAMINATION: VITAL SIGNS: A temperature of 98.2, respirations 18, pulse 113, and blood pressure was 180/100 with a pulse ox of 100% on 2 liters nasal O2. HEAD: Normocephalic, atraumatic. Eyes: No icterus. Ears: Clear. Throat: Noninjected. NECK: Supple. HEART: Regular S1, S2. No pathological rubs, murmurs or gallops. LUNGS: With rhonchi and wheezing that cleared with coughing. ABDOMEN: Soft. EXTREMITIES: No edema. SKIN: Without rash. NEUROLOGICAL: Chronic confusion, moves all four extremities. VASCULAR: Legs warm to touch. PSYCHOLOGICAL: Chronic confusion. LABORATORY DATA: White count 6700, hemoglobin 8.7, hematocrit 26.9, platelets 152,000. PT/INR 1.01, PTT 27. Random blood sugar 192. IMPRESSION: A 77-year-old female with [id number] chronic obstructive pulmonary disease, history of glaucoma, dementia, chronic confusion, hypertension, atherosclerotic heart disease, status post ST elevation myocardial infarction, insulin-dependent diabetes mellitus, peptic ulcer disease with gastroesophageal reflux disease, degenerative arthritis and anemia of chronic disease. PLAN: As discussed with her daughter, will be to maintain medications including eyedrops from her halfway profile as outlined, hydralazine, Brovana, Ecotrin, insulin, including regular high insulin protocol before meals and at bedtime and Levemir 25 units subcu before meals, breakfast and dinner, Lopressor, nitroglycerin ointment p.r.n. accelerated hypertension, Plavix, Protonix, Pulmicort inhalational therapy, Robitussin and IV Solu-Medrol, Tylenol, Xopenex, Zestril and Zofran. The patient is ordered to have a nasal swab for MRSA. She is ordered to have BiPap. She remains on a heart-healthy diabetic diet and is on strict I's and O's. Based on clinical progress, additional diagnostic testing and workup will be entertained. Greater than 1 hour was spent in the care, management, review of labs, orders, x-rays and discussion of this patient with Intensive Care Nursing and her daughter. All questions were answered Mikayla Rodriguez MD MTDD
--- NOTE | 2018-02-21 11:36 | PN ---
DATE: 02/20/2018 SUBJECTIVE: This 77-year-old female was examined in the Critical Care Unit, bed #1, on the morning of 02/20/2018 in the presence of her nurse, Leann Julien, registered nurse. The patient remains alert, but confused. She denies any fever, chills, chest pain or shortness of breath. PHYSICAL EXAMINATION: VITAL SIGNS: At the time of my exam, her temperature was 98.7, respirations 32, pulse 119, pulse ox of 100% on 2 liters nasal O2 with a blood pressure of 192/114. HEAD: Her head was normocephalic, atraumatic. Eyes: No icterus. Ears: Clear. Throat: Noninjected. NECK: Supple. HEART: Regular S1, S2. No pathological rubs, murmurs or gallops. LUNGS: Had occasional rhonchi and wheezing that cleared with coughing. ABDOMEN: Soft. EXTREMITIES: No edema. SKIN: Without rash. NEUROLOGICAL: Deconditioned. VASCULAR: Legs warm to touch. PSYCHOLOGICAL: Alert, but confused. LABORATORY DATA: White count was 6700, hemoglobin 8.7, hematocrit 26.9, platelets 152,000, random blood sugar was 425. Sodium 138, K 3.5, chloride 96, bicarb 34, BUN 40, creatinine 0.9, calcium 9.7. IMPRESSION: A 77-year-old female with uncontrolled insulin-dependent diabetes mellitus in the setting of [id number] respiratory dysfunction secondary to exacerbation of chronic obstructive pulmonary disease with comorbidities of Alzheimer's dementia, chronic confusion, metabolic encephalopathy, glaucoma, atherosclerotic heart disease, peptic ulcer disease with gastroesophageal reflux disease, anemia of chronic disease, degenerative arthritis. PLAN: The plan as discussed with critical care nursing will be to decrease her Solu-Medrol to 30 mg IV every 8 hours and to resume Lopressor 25 mg p.o. daily while also continuing nitroglycerin 1 inch to chest wall every 4 hours p.r.n. accelerated hypertension if systolic blood pressure should be greater than 160 or diastolic blood pressure should be greater than 100. She is also scheduled to have hydralazine 10 mg IV every 6 hours based on her blood pressure and her insulins are being adjusted as well. The patient will be transferred to the Cardiac Unit where additional treatment of her exacerbation of pulmonary disease will be provided and she will be maintained on all medications including glaucoma eyedrops, Brovana and Pulmicort inhalational therapy, Xopenex inhalational therapy baby aspirin, insulins, Lopressor, Plavix, Protonix, Robitussin, Vantin and Zestril. Based on her clinical response, additional diagnostic testing and workup will be entertained. Approximately 1 hour was spent in the care management, review of labs, orders, x-rays and outlining of care for this patient today with her critical care nurse at bedside. All questions were answered. Mikayla Rodriguez MD MTDD
[2018-02-21 16:31] LABS: FERRITIN 91.3 ng/mL
[2018-02-21 17:01] LABS: FOLATE > 20.0 ng/mL
[2018-02-21] MEDS: Latanoprost 2.5 ml Opht Soln OU SCH (22:01)
[2018-02-22] MEDS ORDERED: Insulin Lispro 1 UNITS/0.01 ML SC STA (03:25)
[2018-02-22] MEDS: MethylPREDNISolone 40 mg Vial IVP SCH ×2 (03:54→12:20)
[2018-02-22 06:29] VITALS: O2SAT 100
[2018-02-22 07:18] LABS: HEMOGLOBIN 8.9 g/dL (12.0-16.0); MEAN CELL VOLUME 94.1 fl (80.0-105.0); MEAN CORPUSCULAR HEMOGLOBIN 29.3 pg (25.0-35.0); MEAN CORPUSCULAR HGB CONC 31.1 g/dl (31.0-37.0); MEAN PLATELET VOLUME 11.5 fl (7.0-11.0); RBC 3.04 10^6/uL (3.5-6.1); RED CELL DISTRIBUTION WIDTH 14.4 % (11.5-14.5); WHITE BLOOD COUNT 6.6 10^3/ul (4.5-11.0)
[2018-02-22 07:40] LABS: BLOOD UREA NITROGEN 48 mg/dL (7-21); CALCIUM 9.4 mg/dL (8.4-10.5); GFR NON-AFRICAN AMERICAN > 60; HDL CHOLESTEROL 70 mg/dL (29-60)
[2018-02-22 07:41] LABS: LDL CHOLESTEROL 43 mg/dL (0-129)
[2018-02-22] MEDS ORDERED: MethylPREDNISolone 40 mg Vial IVP SCH (07:42)
--- NOTE | 2018-02-22 08:09 | PN ---
DATE: 02/21/2018 SUBJECTIVE: This 77-year-old female remains on the cardiac antonio at the [facility] where she was evaluated on 02/21/2018. This case was reviewed in detail with nurse, Anastacio Rueda, registered nurse. The patient remains weak and deconditioned. Her courses is complicated by her chronic Alzheimer's dementia. She was admitted with respiratory insufficiency and hyperglycemia that required an IV insulin drip and intensive care. At present, she remains in a normal sinus rhythm on the ekg monitor and there have been no reports of fever, chills, chest pain or shortness of breath. PHYSICAL EXAMINATION: VITAL SIGNS: Her temperature is 98.3, respirations 18, pulse 89 and blood pressure 157/79 with a pulse ox of 98% on 3 L nasal O2. HEENT: Head: Normocephalic, atraumatic. Eyes: No icterus. Ears: Clear. Throat: Noninjected. NECK: Supple. HEART: Regular S1, S2. LUNGS: Have rhonchi and wheezing that clear with coughing. ABDOMEN: Soft. EXTREMITIES: No edema. SKIN: Without rash. NEUROLOGICAL: Marked deconditioning, but she does move all 4 extremities. PSYCHOLOGICAL: Alert, but confused. VASCULAR: Legs warm to touch. LABORATORY DATA: Her white count is 8400, hemoglobin 8.6, hematocrit 27, platelets 159,000. PT/INR 1.01, PTT 27. Random blood sugar 134, ferritin 91.3, vitamin B12 of 916, folic acid greater than 20, hemoglobin A1c 6.2. Iron level 38, TIBC 275, percent saturation 14, low. Chest x-ray was reviewed. It shows no active pulmonary disease with no effusion, no pneumothorax, no infiltrate, no obvious congestive heart failure or pneumonia. ASSESSMENT AND PLAN: This case was once again reviewed with her daughter, Randy Andino, both daughter and power of ip technology transactions attorney. I did discuss the patient's iron-deficiency anemia. She explained that while her mother was hospitalized at the [facility] in 12/2017, she underwent an endoscopy and colonoscopy. Endoscopy was unremarkable and colonoscopy reportedly showed a benign polyp. I have informed her that she will be started on iron replacement therapy as a result of her current lab findings and it is her desire that the patient return to the [facility] when stable for nursing home care. At this point in time, as discussed with nurse, Mohit, the patient will continue on eyedrops from fdc as labeled, Brovana inhalational therapy every 12, Ecotrin 81 mg p.o. daily, high-dose Humulin R insulin coverage before meals and at bedtime, Levemir insulin 25 units before breakfast and dinner, Lopressor 50 mg p.o. b.i.d., nitroglycerin 1 inch to chest wall every 4 hours p.r.n. accelerated hypertension if systolic blood pressure should be greater than 160 or diastolic blood pressure should be greater than 100, Plavix 75 mg p.o. daily, Protonix 40 mg p.o. daily, Pulmicort inhalational therapy every 12, Robitussin 5 mL p.o. every 4 hours p.r.n. cough. Solu-Medrol has been reduced to 30 mg IV every 8. She continues on Vantin 200 mg p.o. every 12, Xopenex inhalational therapy every 12, Zestril 10 mg p.o. daily and Zofran 4 mg IV every 6 hours p.r.n. nausea and vomiting. She is ordered to have a basic metabolic panel and lipid panel as well as CBC in the a.m. She remains on BiPAP daily. She continues on heart-healthy diabetic diet and is ordered to have bedside physical therapy as tolerated. As discussed with her daughter, Randy once the patient is medically stable, she will return to the [facility] for nursing home care and greater than 35 minutes was spent in the care and management, review of labs, orders, x-rays and discussion of this patient's management with her daughter including review of old medical records from [facility]. All questions were answered. Mikayla Rodriguez MD AZALEA
[2018-02-22] MEDS: Arformoterol 15 mcg/2 ml Inh Sol IH SCH ×2 (08:29→20:16)
[2018-02-22] MEDS: Levalbuterol 0.63 MG/3 ML Inhal Soln UD IH SCH ×3 (08:29→20:16)
[2018-02-22] MEDS: Budesonide 0.25 mg/2 ml Inhal Susp UD IH SCH ×2 (08:30→20:16)
[2018-02-22] MEDS: Insulin Reg-HIGH-Coverage SC SCH ×5 (08:43→21:45)
[2018-02-22] MEDS: Pantoprazole 40 mg EC Tab PO SCH (08:43)
[2018-02-22] MEDS: Cefpodoxime (Vantin) 200 mg Tab PO SCH ×2 (10:06→21:46)
[2018-02-22] MEDS: Brimonidine 0.15% 50 DROP/5 ML BOTTLE OU SCH (10:08)
[2018-02-22] MEDS: Insulin Detemir 100 units/ml Vial (Levemir) SC SCH (19:04)
[2018-02-22] MEDS: Latanoprost 2.5 ml Opht Soln OU SCH (21:46)
[2018-02-22] MEDS: Nitroglycerin 2% Ointment Foilpak UD TOP PRN (23:03)
[2018-02-23] MEDS: Levalbuterol 0.63 MG/3 ML Inhal Soln UD IH SCH ×3 (01:23→14:05)
[2018-02-23] MEDS: MethylPREDNISolone 40 mg Vial IVP SCH (03:37)
[2018-02-23] MEDS: Budesonide 0.25 mg/2 ml Inhal Susp UD IH SCH (07:32)
[2018-02-23] MEDS: Arformoterol 15 mcg/2 ml Inh Sol IH SCH (07:32)
[2018-02-23] MEDS: Insulin Reg-HIGH-Coverage SC SCH ×3 (08:16→17:31)
[2018-02-23] MEDS: Insulin Detemir 100 units/ml Vial (Levemir) SC SCH ×2 (08:22→17:44)
[2018-02-23] MEDS: Pantoprazole 40 mg EC Tab PO SCH (08:39)
[2018-02-23] MEDS: Cefpodoxime (Vantin) 200 mg Tab PO SCH (09:03)
[2018-02-23] MEDS: Brimonidine 0.15% 50 DROP/5 ML BOTTLE OU SCH (09:05)
[2018-02-23] MEDS: Nitroglycerin 2% Ointment Foilpak UD TOP PRN (10:23)
--- NOTE | 2018-02-23 10:23 | PN ---
DATE: 02/22/2018 SUBJECTIVE: This 77-year-old female was examined at her bedside on the cardiac antonio on the afternoon of 02/22/2018. This case was reviewed in detail with her nurse Magali Ferreira, registered nurse and Margarette Montero, case management specialist. The patient remains weak, deconditioned and bedridden. She is alert, but chronically confused. She is tolerating diet and medication and has improved with BiPAP at bedtime and nasal O2 throughout the day. She denies any fever, chills, chest pain or shortness of breath, was in a normal sinus rhythm on the cardiac technician. PHYSICAL EXAMINATION: VITAL SIGNS: Her temperature is 98.4, respirations 18, pulse 73 and blood pressure 148/64. Pulse ox was 100% on 2 liters nasal O2. HEENT: Head, normocephalic, atraumatic. Eyes: No icterus. Ears: Clear. Throat: Noninjected. NECK: Supple. HEART: With S1, S2. LUNGS: With occasional rhonchi that cleared with coughing. ABDOMEN: Soft. EXTREMITIES: No edema. SKIN: Without rash. NEUROLOGICAL: Unchanged. Marked deconditioning. PSYCHOLOGICAL: Alert, but chronically confused. VASCULAR: Legs warm to touch. LABORATORY DATA: White count 6600, hemoglobin 8.9, hematocrit 28.6. MCV 94 and platelets 167. Sodium 139, K 4.2, chloride 100, bicarb 35, BUN 48, creatinine 0.9, random blood sugar was 381, calcium 9.4. Cholesterol 137, triglycerides 46, LDL 43, HDL 70. There was no MRSA detected on nasal culture. IMPRESSION: This 77-year-old female with history of respiratory failure in the past, now with [id number] exacerbation of chronic obstructive pulmonary disease, uncontrolled insulin-dependent diabetes mellitus, now on steroid taper with chronic glaucoma, Alzheimer's dementia, chronic confusion, bedridden status secondary to marked deconditioning and history of iron-deficiency anemia, insulin-dependent diabetes mellitus, chronic hypertension, atherosclerotic heart disease stable, peptic ulcer disease with gastroesophageal reflux disease, history of colonic polyp and degenerative arthritis. PLAN: As discussed with the patient and nursing will be to continue glaucoma eyedrops, hydralazine 10 mg IV every 6 hour p.r.n. accelerated hypertension, Brovana inhalational therapy, Colace, Ecotrin, ferrous gluconate, high-dose Humulin R insulin coverage before meals and at bedtime, Levemir has been increased to 35 units before breakfast and dinner. She has had her Lopressor increase to 100 mg p.o. b.i.d. She will continue to receive nitroglycerin ointment 1 inch to chest wall every 4 hours if her systolic blood pressure is greater than 160 or diastolic blood pressure is greater than 100. She continues on Plavix 75 mg p.o. daily, Protonix 40 mg p.o. daily, Pulmicort inhalational therapy, Robitussin DM 5 mL p.o. every 4 hour p.r.n. cough, Solu-Medrol has been decreased to 20 mg IV every 8. She continues on Vantin 200 mg p.o. every 12, Xopenex inhalational therapy every 6, Zestril 20 mg p.o. b.i.d. and Zofran 4 mg IV every 6 hours p.r.n. nausea and vomiting. Based on her clinical progress, discharge management will be entertained. Of note, she will require BiPAP and nasal O2 when she returns to [facility] for her assisted care. This was discussed in detail with nursing, case management specialist Margarette Montero and daughter, Randy Andino, the power of staff attorney. Greater than 35 minutes was spent in the care management, review of labs, orders, adjustment of medication and outlining of discharge management care for this patient today. All questions were answered. Mikayla Rodriguez MD MTDLeann
[2018-02-23 13:03] VITALS: RESP 18; TEMP 99
[2018-02-23 14:51] VITALS: BP 199/87; PULSE 81
--- NOTE | 2018-02-24 11:25 | DS ---
DATE: 02/23/2018 HISTORY OF PRESENT ILLNESS: This 77-year-old female was examined at her bedside and her discharge orders were reviewed in detail with nurse Bebe Gooden, registered nurse. These orders were also reviewed with [facility] charge nurse, Allison. FINAL DISCHARGE DIAGNOSES: Exacerbation of chronic obstructive pulmonary disease, uncontrolled insulin-dependent diabetes mellitus, chronic glaucoma, right eye blindness, chronic iron-deficiency anemia, chronic hypertension, stable atherosclerotic heart disease, chronic obstructive pulmonary disease, bedridden status, degenerative arthritis, sacral sore, chronic. DISPOSITION: [facility]. DISCHARGE DIET: A 2 g sodium, no added sweets. DISCHARGE MEDICATIONS: Glaucoma eyedrops as outlined, Brovana inhalational therapy 15 mcg inhalational therapy every 12, Colace 200 mg p.o. daily, Ecotrin 81 mg p.o. daily, Fergon 324 mg p.o. three times a day, regular R insulin sliding scale coverage-high protocol before meals and at bedtime, Levemir 35 units before breakfast and dinner, Lopressor 100 mg b.i.d., nitroglycerin ointment 1 inch to chest wall every 4 hours if systolic blood pressure greater than 160 or diastolic blood pressure greater than 100, Plavix 75 mg p.o. daily, Pepcid 40 mg p.o. at bedtime, Pulmicort 0.25 mg inhalational every 12, Robitussin DM 5 mL p.o. every 6 hours p.r.n. cough, dual nebulizer therapy every 6 hours, Zestril 20 mg p.o. b.i.d., Tylenol 650 p.o. every 6 hours p.r.n. pain or temperature greater than 101, BiPAP at night time which will be in IPAP of 14 and EPAP of 6 and FIO2 of 35 and a rate of 15. The patient is on 3 liters nasal O2 during the day. She is ordered to have skin care to sacral ulcer and to wear heel booties at all time, to be out of bed to chair as able and to have bedside physical therapy for reconditioning and range of motion. SUMMARY: This 77-year-old female was admitted to [facility] with exacerbation of chronic obstructive pulmonary disease and respiratory distress. Because of uncontrolled type 2 diabetes mellitus insulin-dependent, she was transferred to ICU where she was stabilized on an insulin drip. She was noted to have anemia which on review with her daughter, Randy Andino is secondary to iron deficiency and the patient reportedly had a negative endoscopy and a benign colon polyp on colonoscopy when she was evaluated for this issue at [facility] in 12/2017 as per her daughter. At the time of her discharge, the patient is alert, chronically confused and tolerating diet and medication well. Her temperature was 98.6, respirations 20, pulse 71 and blood pressure 155/85 with a pulse ox of 100% on 3 liters nasal O2. White count 6600, hemoglobin 8.9, hematocrit 28.6, platelets 167,000. PT/INR 1.01, PTT 27. Sodium 139, K 4.2, chloride 100, bicarb 35, BUN 48, creatinine 0.9, random blood sugar was 80, previously 253. Cholesterol 137, triglycerides 46, LDL 43, HDL 70. Her B12 level was 916. Folic acid was greater than 20, percent saturation 14, ferritin 91.3. Hemoglobin A1c was 6.2. No MRSA was detected in her nares. Chest x-ray was reviewed and showed no infiltrate, no effusion, no pneumothorax, no evidence of congestive heart failure nor pneumonia. EKG was reviewed. It showed a normal sinus rhythm with nonspecific ST-T wave changes and the patient will return to the [facility] for her fdc care. Her overall prognosis remains poor. She will be treated in a supportive and compassionate way. Greater than 35 minutes was spent in the care management, review of labs, outlining of orders and discussion of this patient with nurse Santosh Gooden, registered nurse at [facility], case maker Margarette Briceno and charge nurse at [facility], Allison. All questions were answered. Mikayla Rodriguez MD AZALEA
== END 2018-02-23 19:00 | DRG 541 ==
LOC: ED 22:11 → ERH 02-18 01:40 → 2RNO 02-18 04:46 → CCU 02-19 → 2RSO 02-21 03:05
PROVIDERS: ADMIT Internal Medicine; ATTEND Internal Medicine
PROC: 5A09457 Assistance with Respiratory Ventilation, 24-96 Consecutive Hours, Continuous Positive Airway Pressure (ICD-10-PCS; principal; 2018-02-18)
DX: J44.1 Chronic obstructive pulmonary disease with (acute) exacerbation (principal); L89.159 Pressure ulcer of sacral region, unspecified stage; I11.0 Hypertensive heart disease with heart failure; I50.9 Heart failure, unspecified; E11.65 Type 2 diabetes mellitus with hyperglycemia; E87.6 Hypokalemia; F20.9 Schizophrenia, unspecified; I25.10 Atherosclerotic heart disease of native coronary artery without angina pectoris; H54.61 Unqualified visual loss, right eye, normal vision left eye; I25.2 Old myocardial infarction; K21.9 Gastro-esophageal reflux disease without esophagitis; M19.90 Unspecified osteoarthritis, unspecified site; T38.0X5A Adverse effect of glucocorticoids and synthetic analogues, initial encounter; Z74.01 Bed confinement status; Z87.11 Personal history of peptic ulcer disease; Z86.010 Personal history of colon polyps; Z79.4 Long term (current) use of insulin; H40.9 Unspecified glaucoma; G30.9 Alzheimer's disease, unspecified; F02.80 Dementia in other diseases classified elsewhere, unspecified severity, without behavioral disturbance, psychotic disturbance, mood disturbance, and anxiety; D50.9 Iron deficiency anemia, unspecified; D63.8 Anemia in other chronic diseases classified elsewhere; E78.5 Hyperlipidemia, unspecified; F09 Unspecified mental disorder due to known physiological condition; Z87.891 Personal history of nicotine dependence

== ENCOUNTER 2018-03-02 05:45 | Inpatient (IN) | payer MEDICAID, MEDICARE ==
[2018-03-02 05:53] VITALS: BMI 26.8
--- NOTE | 2018-03-02 05:53 | ED PDOC ---
Arrival/HPI - General Time Seen by Provider: 03/02/18 05:50 Historian: EMS - History of Present Illness Narrative History of Present Illness (Text): 03/02/18 05:53 Thao Bishop is a 77 year old female, whose past medical history include NSTEMI, COPD, CHF, respiratory failure recently extubated on 02/06/2018, hypertension, diabetes, hyperlipidemia, sacral decubitus, schizophrenia, and dementia, who presents to the ED brought in by EMS sent from [facility] for worsening shortness of breath. As per residential documentation, patient's oxygen saturation was noted to be in the 80s this morning. Patient was given 1 Duoneb at the residential with no significant improvement. Patient was placed on CPAP and given nitroglycerin, Atrovent, and Albuterol in the field. Limited HPI and ROS secondary to patient's dementia/lethargy. Symptom Onset: Gradual Symptom Course: Unchanged Activities at Onset: Light Context: Home Past Medical History - Provider Review Nursing Documentation Reviewed: Yes - Infectious Disease Hx of Infectious Diseases: None - Cardiac Hx Cardiac Disorders: Yes (NSTEMI) Hx Congestive Heart Failure: Yes Hx Hypertension: Yes - Pulmonary Hx Chronic Obstructive Pulmonary Disease (COPD): Yes - Neurological Hx Dementia: Yes - HEENT Hx HEENT Disorder: No - Renal Hx Renal Disorder: No - Endocrine/Metabolic Hx Diabetes Mellitus Type 2: Yes - Hematological/Oncological Hx Anemia: Yes - Integumentary Hx Dermatological Disorder: No - Musculoskeletal/Rheumatological Other/Comment: Sacral pressure ulcer - Gastrointestinal Hx Gastrointestinal Disorders: No - Genitourinary/Gynecological Hx Genitourinary Disorders: No - Psychiatric Hx Schizophrenia: Yes Hx Substance Use: No - Anesthesia Hx Anesthesia: No - Suicidal Assessment Feels Threatened In Home Enviroment: No Family/Social History - Physician Review Nursing Documentation Reviewed: Yes Family/Social History: Unknown Family HX Smoking Status: Never Smoked Hx Alcohol Use: No Hx Substance Use: No Allergies/Home Meds Allergies/Adverse Reactions: Allergies No Known Allergies Allergy (Verified 03/02/18 05:53) Home Medications: Home Meds Medication Instructions Recorded Confirmed Albuterol/Ipratropium [Duoneb 3 3 ml IH Q6H PRN 09/16/13 03/02/18 MG/3 Ml-0.5 MG/3 Ml 3 Ml] Insulin Detemir [Levemir] 35 units SC ACBD 09/16/13 03/02/18 Magnesium Hydroxide [Milk Of 30 ml PO HS 09/16/13 03/02/18 Magnesia] RX: Simethicone [Mylicon Chew Tab] 80 mg PO BID 09/16/13 03/02/18 Tylenol 650 mg PO Q4H PRN 09/16/13 03/02/18 Aspirin [Ecotrin] 81 mg PO DAILY 02/23/18 03/02/18 Clopidogrel [Plavix] 75 mg PO DAILY 02/23/18 03/02/18 Lisinopril [Zestril] 20 mg PO BID 02/23/18 03/02/18 RX: Ferrous Gluconate 324 mg PO TID 02/23/18 03/02/18 Arformoterol [Brovana] 15 mcg IH Q12 03/02/18 03/02/18 Brimonidine Tartrate [Alphagan P 1 drop OU DAILY 03/02/18 03/02/18 0.1 % Ophth] Budesonide [Pulmicort Respules] 0.5 mg IH BID 03/02/18 03/02/18 Docusate [Colace] 100 mg PO HS 03/02/18 03/02/18 Famotidine [Pepcid] 40 mg PO DAILY 03/02/18 03/02/18 Insulin Human Regular-MED [HumuLIN 2 units SC [facility] 03/02/18 03/02/18 R MED] Latanoprost/Pf [Latanoprost 0.005% 1 drop OU HS 03/02/18 03/02/18 Eye Drop] Metoprolol Tartrate [Lopressor] 100 mg PO BID 03/02/18 03/02/18 Nitroglycerin 2% [Nitro-Bid 2% 1 ea TOP Q4 PRN 03/02/18 03/02/18 Oint] Timolol 0.5% Ophth [Timoptic 0.5% 1 drop OU BID 03/02/18 03/02/18 Ophth Soln] Review of Systems - Review of Systems Systems not reviewed;Unavailable: Dementia Respiratory: SOB Physical Exam Vital Signs Reviewed: Yes Temperature: Afebrile Blood Pressure: Normal Pulse: Regular Respiratory Rate: Normal Pain Distress: None Mental Status: Positive for: Lethargic - Systems Exam Head: Present: Atraumatic, Normocephalic Pupils: Present: PERRL Extroacular Muscles: Present: EOMI Conjunctiva: Present: Normal Mouth: Present: Moist Mucous Membranes Neck: Present: Normal Range of Motion Respiratory/Chest: Present: Wheezes (Wheezing bilaterally), Rhonchi (Rhonchi bilatearlly). No: Respiratory Distress, Accessory Muscle Use Cardiovascular: Present: Regular Rate and Rhythm, Normal S1, S2. No: Murmurs Abdomen: No: Tenderness, Distention, Peritoneal Signs Back: Present: Normal Inspection Upper Extremity: Present: Normal Inspection. No: Cyanosis, Edema Lower Extremity: Present: Normal Inspection. No: Edema Neurological: Present: GCS=15, CN II-XII Intact Skin: Present: Warm, Dry, Normal Color. No: Rashes Psychiatric: Present: Lethargic Medical Decision Making ED Course and Treatment: 03/02/18 05:53 Impression: 77 year old female brought in for worsening shortness of breath this morning. Plan: -- EKG -- Chest X-ray -- Labs, ABG, VBG, cardiac enzymes, BNP, blood cultures -- UA -- Reassess and disposition Prior Visits: Notes and results from previous visits were reviewed. On 02/17/2018, pt was seen in the Emergency department for worsening shortness of breath. Pt was admitted to the hospital and recently discharged home on 02/23/2018 following treatment for COPD exacerbation and respiratory distress. Progress Notes: 03/02/18 06:15 Reviewed EKG, sinus rhythm at [address]pm[address] PAC. Non-specific ST/T wave changes. - EKG Interpretation Interpreted by ED Physician: Yes Type: 12 lead EKG - Transfer of Care Patient signed out to Dr:: ravin echavarria xray and dispo - Scribe Statement The provider has reviewed the documentation as recorded by the Carloz Maza Provider Scribe Attestation: All medical record entries made by the Scribe were at my direction and personally dictated by me. I have reviewed the chart and agree that the record accurately reflects my personal performance of the history, physical exam, medical decision making, and the department course for this patient. I have also personally directed, reviewed, and agree with the discharge instructions and disposition. Disposition/Present on Arrival - Present on Arrival Any Indicators Present on Arrival: No History of DVT/PE: No History of Uncontrolled Diabetes: No Urinary Catheter: No History Surgical Site Infection Following: None - Disposition Have Diagnosis and Disposition been Completed?: Yes Diagnosis: CHF (congestive heart failure) Disposition: HOSPITALIZED Disposition Time: 07:00 Patient Problems: Current Active Problems Problem Status Onset CHF (congestive heart failure) Acute Condition: FAIR
[2018-03-02 06:16] LABS: ARTERIAL BLOOD GAS HCO3 33.7 mmol/L (21-28); ARTERIAL BLOOD GAS HEMOGLOBIN 9.7 g/dL (11.7-17.4); ARTERIAL BLOOD GAS O2 CAPACITY 13.3 mL/dl (16-24); ARTERIAL BLOOD GAS O2 CONTENT 12.9 ML/dl (15-23); ARTERIAL BLOOD GAS O2 SAT 97.3 % (95-98); ARTERIAL BLOOD GAS PCO2 61 mm/Hg (35-45); ARTERIAL BLOOD GAS PH 7.35 (7.35-7.45); ARTERIAL BLOOD GAS TCO2 35.6 mmol.L (22-28)
[2018-03-02 06:27] LABS: BASO # 0.01 K/mm3 (0.0-2.0); BASO % 0.1 % (0.0-3.0); EOS # 0.1 (0.0-0.7); EOS % 0.6 % (1.5-5.0); GRAN # 12.31 (1.4-6.5); HEMOGLOBIN 10.4 g/dL (12.0-16.0); LYMPH # 0.6 (1.2-3.4); LYMPH % 4.1 % (22.0-35.0); MEAN CELL VOLUME 93.8 fl (80.0-105.0); MEAN CORPUSCULAR HEMOGLOBIN 29.5 pg (25.0-35.0); MEAN CORPUSCULAR HGB CONC 31.4 g/dl (31.0-37.0); MEAN PLATELET VOLUME 10.6 fl (7.0-11.0); MONO # 0.7 (0.1-0.6); MONO % 5.2 % (1.0-6.0); PLATELET COUNT 174 10^3/uL (120.0-450.0); RBC 3.53 10^6/uL (3.5-6.1); RED CELL DISTRIBUTION WIDTH 14.5 % (11.5-14.5); WHITE BLOOD COUNT 13.7 10^3/ul (4.5-11.0)
[2018-03-02 07:06] LABS: BAND 3 % (0-2); BASOPHIL 1 % (0.0-1.0); EOSINOPHIL 1 % (0.0-3.0); LARGE PLATELETS PRESENT; LYMPHOCYTE 6 % (22.0-35.0); MONOCYTE 3 % (1.0-6.0); NEUTROPHIL 86 % (50.0-70.0); PLATELET ESTIMATE NORMAL (NORMAL); POIKILOCYTOSIS SLIGHT
--- NOTE | 2018-03-02 07:54 | ED PDOC ---
Physical Exam Vital Signs Reviewed: Yes Vital Signs Temp Pulse Resp BP Pulse Ox 03/02/18 06:19 99.1 F 93 H 16 121/57 L 97 03/02/18 06:02 103 H 20 122/56 L 93 L Blood Pressure: Hypotensive (at 122/56) Pulse: Tachycardic (at 103) Respiratory Rate: Normal Medical Decision Making ED Course and Treatment: 03/02/18 07:00 Progress notes: Case endorsed to me by Dr. Mcdowell for pending labs and admission. 03/02/18 09:[address] de leon, patient to be admitted for hypoxic respiratory distress. patient has a hx of chf, has normal renal function and elevated bnp level with a cxr fairly consistent with pulm edema. at this time will empirically tx for chf exacerbation. patient appears stable for tele admission at this time. - Lab Interpretations Lab Results: 03/02/18 06:00 Lab Results 03/02/18 06:00: WBC 13.7 H D, RBC 3.53, Hgb 10.4 L, Hct 33.1 L, MCV 93.8, MCH 29.5, MCHC 31.4, RDW 14.5, Plt Count 174, MPV 10.6, Gran % 90.0 H, Lymph % (Auto) 4.1 L, Wetzel % (Auto) 5.2, Eos % (Auto) 0.6 L, Baso % (Auto) 0.1, Gran # 12.31 H, Lymph # (Auto) 0.6 L, Wetzel # (Auto) 0.7 H, Eos # (Auto) 0.1, Baso # (Auto) 0.01, Neutrophils % (Manual) 86 H, Band Neutrophils % 3 H, Lymphocytes % (Manual) 6 L, Monocytes % (Manual) 3, Eosinophils % (Manual) 1, Basophils % (Manual) 1, Platelet Evaluation Normal, Large Platelets Present, Poikilocytosis (manual Slight 03/02/18 05:57: pCO2 61 H, pO2 77.0 L, HCO3 33.7 H, ABG pH 7.35, ABG Total CO2 35.6 H, ABG O2 Saturation 97.3, ABG O2 Content 12.9 L, ABG Base Excess 6.8 H, AB G Hemoglobin 9.7 L, ABG Carboxyhemoglobin 2.3 H, POC ABG HHb (Measured) 2.6, ABG Methemoglobin 0.9, ABG O2 Capacity 13.3 L, Hgb O2 Saturation 94.2 L, FiO2 35.0 - RAD Interpretation Radiology Orders: 03/02/18 05:55 CHEST PORTABLE [RAD] Stat - Scribe Statement The provider has reviewed the documentation as recorded by the Scribe Lena Horne All medical record entries made by the Scribe were at my direction and personally dictated by me. I have reviewed the chart and agree that the record accurately reflects my personal performance of the history, physical exam, medical decision making, and the department course for this patient. I have also personally directed, reviewed, and agree with the discharge instructions and disposition. Disposition/Present on Arrival - Present on Arrival Any Indicators Present on Arrival: No History of DVT/PE: No History of Uncontrolled Diabetes: No Urinary Catheter: No History of Decub. Ulcer: Yes History Surgical Site Infection Following: None - Disposition Have Diagnosis and Disposition been Completed?: Yes Diagnosis: CHF (congestive heart failure) Disposition: HOSPITALIZED Disposition Time: 08:50 Patient Plan: Admission Condition: FAIR Discharge Instructions (ExitCare): Heart Failure (ED) Forms: [employer] Connect ([place]ian)
[2018-03-02 08:11] LABS: INR 1.09; PARTIAL THROMBOPLASTIN TIME 27.8 Seconds (25.1-36.5); PROTHROMBIN TIME 12.6 SECONDS (9.4-12.5)
[2018-03-02 08:13] LABS: ALB/GLOB RATIO 1.2 (1.1-1.8); ALBUMIN 3.5 g/dL (3.0-4.8); ALT/SGPT 131 U/L (7-56); AST/SGOT 83 U/L (14-36); BLOOD UREA NITROGEN 15 mg/dL (7-21); CALCIUM 9.2 mg/dL (8.4-10.5); GFR NON-AFRICAN AMERICAN > 60
--- NOTE | 2018-03-02 08:24 | RAD ---
Date of service: 03/02/2018 HISTORY: sob COMPARISON: Portable chest 02/17/2018. FINDINGS: LUNGS: Hazy density seen at the mid to inferior left lung zone suspicious for possible effusion with underlying airspace disease not excluded. Limited fluid is seen the minor fissure. Haziness in the right base suggests atelectasis or infiltrate. No right pleural effusion. No pneumothorax bilaterally. PLEURA: As above. CARDIOVASCULAR: Stable cardiac silhouette. Borderline pulmonary vascular congestion. OSSEOUS STRUCTURES: No significant abnormalities. VISUALIZED UPPER ABDOMEN: Normal. OTHER FINDINGS: None. IMPRESSION: Bilateral pleural effusions, left greater than right with underlying airspace disease not excluded at the left mid inferior lung zones and at the right base. Borderline pulmonary vascular congestion.
[2018-03-02 08:25] LABS: B-TYPE NATRIURETIC PEPTIDE 8180 pg/mL (0-450); TROPONIN I 0.09 ng/mL
--- NOTE | 2018-03-02 09:57 | CARD ---
APPROVED REPORT Date of service: 03/02/2018 EKG Measurement Heart [id number] <Conclusion> Sinus rhythm with premature atrial complexes ST & T wave abnormality. LVH.
[2018-03-02 10:43] LABS: VENOUS BLOOD GAS BASE EXCESS 10.6 mmol/L (0.0-2.0); VENOUS BLOOD GAS PO2 124 mm/Hg (30-55); VENOUS BLOOD PH 7.36 (7.32-7.43)
[2018-03-02 10:47] LABS: PH,URINE 7.5 (4.7-8.0); URINE BILIRUBIN NEGATIVE (NEGATIVE); URINE BLOOD NEGATIVE (NEGATIVE); URINE GLUCOSE (UA) 250 mg/dL (NEGATIVE); URINE LEUKOCYTE ESTERASE NEGATIVE Leu/uL (NEGATIVE); URINE PROTEIN 100 mg/dL (<30 mg/dL); URINE UROBILINOGEN 0.2 E.U./dL (<1 E.U./dL)
[2018-03-02 10:48] LABS: URINE APPEARANCE SL CLOUDY (CLEAR); URINE COLOR YELLOW (YELLOW)
[2018-03-02 10:50] LABS: URINE BACTERIA TRACE (NEG); URINE RBC NEGATIVE /hpf (0-2); URINE WBC 0 - 2 /hpf (0-6)
[2018-03-02] MEDS ORDERED: Pneumococcal 23-Valent Vaccine IM ONE (13:45)
[2018-03-02] MEDS ORDERED: Vancomycin 1 g Inj IVPB SCH (14:00)
[2018-03-02] MEDS ORDERED: cefTRIAXone 1 gm 1 GM/100 ML BAG IVPB SCH (14:00)
[2018-03-02] MEDS ORDERED: Nitroglycerin 2% Ointment Foilpak UD TOP SCH ×3 (14:00→22:00)
[2018-03-02] MEDS: Famotidine 20mg/50ml 20 MG/50 ML BAG IVPB SCH ×2 (15:01→21:57)
[2018-03-02 15:56] LABS: ARTERIAL BLOOD GAS HCO3 38.9 mmol/L (21-28); ARTERIAL BLOOD GAS O2 SAT 99.5 % (95-98); ARTERIAL BLOOD GAS PCO2 60 mm/Hg (35-45); ARTERIAL BLOOD GAS PH 7.42 (7.35-7.45); ARTERIAL BLOOD GAS TCO2 40.7 mmol.L (22-28)
[2018-03-02] MEDS: Insulin Reg-LOW-Coverage SC SCH ×2 (17:09→22:00)
[2018-03-02] MEDS: Cefepime 1gm in NS 100ml 1 GM/100 ML BAG IVPB SCH ×2 (17:09→21:57)
[2018-03-02] MEDS: Metoprolol 1 mg/ml Inj IVP PRN (17:50)
[2018-03-02] MEDS: Vancomycin 1gm in NS 250ml 1 GM/250 ML BAG IVPB SCH (18:31)
[2018-03-02] MEDS: Arformoterol 15 mcg/2 ml Inh Sol IH SCH (20:08)
[2018-03-02] MEDS: Budesonide 0.5 mg/2 ml Inhal Susp UD IH SCH (20:08)
[2018-03-02] MEDS: Levalbuterol 0.63 MG/3 ML Inhal Soln UD IH SCH (20:08)
--- NOTE | 2018-03-02 20:43 | HP ---
DATE OF EXAM: 03/02/2018 HISTORY OF PRESENT ILLNESS: This 77-year-old female was examined at her bedside in the emergency room, bed 2 on the morning of , 03/02/2018. She was sent for further evaluation with altered mental status, shortness of breath, and hypoxemia from [facility] in [place]. She is 77 years old and has multiple medical problems including exacerbation of chronic obstructive pulmonary disease, insulin-dependent diabetes mellitus, chronic glaucoma, right eye blindness, chronic iron-deficiency anemia, chronic hypertension, atherosclerotic heart disease, chronic obstructive pulmonary disease, bedridden status, degenerative arthritis, and chronic sacral sores. At the skilled nursing, the patient has had a long history of noncompliance with medical recommendations including the wearing of BiPAP. In the past several days, I received daily phone calls from unit nurse managers at [facility] where the patient was recommended to have BiPAP at bedtime as well as nasal O2 to be worn during the day, with which she was noncompliant. Her daughter, Janene Vaneags, was notified of these issues while at the [facility] and this morning when the patient became more short of breath, she was transferred to [facility] ER where she was noted to have hypercapnia as well as hypoxemia in the setting of probable pneumonia with congestive heart failure as well. MEDICATIONS: At the [facility], her medications include glaucoma eyedrops, Lopressor, Zestril, insulin, Levemir, ferrous gluconate, Pepcid, Colace, Plavix, Pulmicort inhalational therapy, Xopenex inhalational therapy, Ecotrin, and Brovana. ALLERGIES: THE PATIENT HAS NO KNOWN ALLERGIES TO MEDICATION. SOCIAL HISTORY: She is a current nondrinker, nonsmoker, non IV drug misuser. She has chronic right eye blindness. REVIEW OF SYSTEMS: CONSTITUTIONAL: There were no reports of fever or chills. HEENT: Head: No recent head trauma. Eyes: She has chronic right eye blindness secondary to glaucoma. Ears: No hearing loss. Throat: No swallowing difficulty. NECK: No stiffness. CARDIAC: She has stable atherosclerotic heart disease. PULMONARY: Advanced COPD in need of BiPAP which which she is noncompliant. GI: History of iron-deficiency anemia. No recent bleeding. No hematemesis or melena. : No gross hematuria. VASCULAR: No claudication. PSYCHOLOGIC: Chronic organic brain syndrome. NEUROLOGIC: She is currently bedridden. SKIN; Chronic sacral sores. FAMILY HISTORY: Noncontributory. PHYSICAL EXAMINATION: VITAL SIGNS: When I saw the patient in the emergency room, temperature was 99.9, respirations 18, pulse 84, blood pressure 139/74 with a pulse ox of 98% on BiPAP. HEENT: Head: Normocephalic and atraumatic. Eyes: No icterus. Ears: Clear. Throat: Noninjected. NECK: Supple. HEART: S1, S2. LUNGS: Occasional rhonchi and wheezing. ABDOMEN: Soft. EXTREMITIES: No edema. SKIN: Without new rashes. She has a chronic sacral sore. VASCULAR: Legs warm to touch. PSYCHOLOGIC: Could not be assessed due to metabolic encephalopathy. The patient was wearing BiPAP and verbally unresponsive. NEURO; Metabolic encephalopathy, lethargic. LABORATORY DATA: Sodium 141, K 4.3, chloride 98, bicarb 37. BUN 15, creatinine 0.7. Random blood sugar 210. Calcium 9.2. Magnesium 1.8. Bilirubin 0.8, AST 83, ALT 131, alk phos 119. Creatinine kinase 21, troponin 0.09. BNP 8180. White count 13,700, hemoglobin 10.4, hematocrit 33.1, and platelets 174,000. PT/INR 1.09, PTT 27.8. Her blood gas showed a pH of 7.35, pCO2 of 61, pO2 of 77, bicarb 33.7, O2 saturation 97.3% on 35% FiO2. Urinalysis showed trace bacteria. Chest x-ray was reviewed consistent with CHF and possible bilateral airspace disease. EKG showed normal sinus rhythm with nonspecific ST-T wave changes and premature atrial contractions. IMPRESSION: A 77-year-old female with exacerbation of chronic obstructive pulmonary disease, now with hypoxemia and hypercapnia secondary to noncompliance with BiPAP at the local skilled nursing and comorbidities of glaucoma, right eye blindness, chronic hypertension, atherosclerotic heart disease, insulin-dependent diabetes mellitus, iron-deficiency anemia, bedridden status with chronic sacral sore. PLAN: As discussed with telemetry cardiac unit nursing will be to admit this patient to a monitored unit. She is scheduled for a head CT. Blood cultures have been sent. A procalcitonin level has been requested, and a basic metabolic panel and CBC will be rechecked in the a.m. She is ordered to have Brovana and Pulmicort inhalational therapy, regular low-dose insulin protocol before meals and at bedtime. A swallowing evaluation. Lasix 40 mg IV every 12 hours, Maxipime 1 g IV every 12 hours, vancomycin 1 g IV every 12 hours, nitroglycerin 1 inch to chest wall every 6 hours, Pepcid 20 mg IV every 12 hours, Xopenex inhalational therapy t.i.d., BiPAP as outlined, n.p.o. until swallowing evaluation is achieved, and neuro checks and fall precautions. Skin care as outlined, air mattress as well. Greater than 75 minutes was spent in the care management, review of labs, placement of orders, review of x-rays, and discussion of this patient with emergency room nursing, cardiac unit nursing, and family. All questions were answered. Mikayla Rodriguez MD MTDLeann
[2018-03-02 21:16] LABS: ARTERIAL BLOOD GAS HCO3 38.9 mmol/L (21-28); ARTERIAL BLOOD GAS O2 SAT 99.2 % (95-98); ARTERIAL BLOOD GAS PCO2 60 mm/Hg (35-45); ARTERIAL BLOOD GAS PH 7.42 (7.35-7.45); ARTERIAL BLOOD GAS TCO2 40.7 mmol.L (22-28)
[2018-03-02] MEDS: Nitroglycerin 2% Ointment Foilpak UD TOP SCH (21:59)
[2018-03-03] MEDS: Nitroglycerin 2% Ointment Foilpak UD TOP SCH ×6 (01:19→21:09)
[2018-03-03] MEDS: Vancomycin 1gm in NS 250ml 1 GM/250 ML BAG IVPB SCH ×2 (01:19→15:18)
[2018-03-03 06:40] LABS: HEMOGLOBIN 10.1 g/dL (12.0-16.0); MEAN CELL VOLUME 95.1 fl (80.0-105.0); MEAN CORPUSCULAR HEMOGLOBIN 29.4 pg (25.0-35.0); MEAN CORPUSCULAR HGB CONC 30.9 g/dl (31.0-37.0); RBC 3.44 10^6/uL (3.5-6.1); RED CELL DISTRIBUTION WIDTH 14.6 % (11.5-14.5); WHITE BLOOD COUNT 4.8 10^3/ul (4.5-11.0)
[2018-03-03 06:47] LABS: BLOOD UREA NITROGEN 15 mg/dL (7-21); CALCIUM 9.2 mg/dL (8.4-10.5); GFR NON-AFRICAN AMERICAN > 60
[2018-03-03] MEDS: Arformoterol 15 mcg/2 ml Inh Sol IH SCH ×2 (08:00→19:31)
[2018-03-03] MEDS: Levalbuterol 0.63 MG/3 ML Inhal Soln UD IH SCH ×3 (08:00→19:31)
[2018-03-03] MEDS: Budesonide 0.5 mg/2 ml Inhal Susp UD IH SCH ×2 (08:00→19:31)
[2018-03-03] MEDS: Insulin Reg-LOW-Coverage SC SCH ×4 (08:20→21:26)
[2018-03-03] MEDS: Cefepime 1gm in NS 100ml 1 GM/100 ML BAG IVPB SCH ×2 (09:38→21:23)
[2018-03-03] MEDS: Famotidine 20mg/50ml 20 MG/50 ML BAG IVPB SCH ×2 (10:58→21:24)
--- NOTE | 2018-03-03 16:41 | CARD ---
APPROVED REPORT Date of service: 03/03/2018 EXAM: Two-dimensional and M-mode echocardiogram with Doppler and color Doppler. INDICATION Congestive Heart Failure 2D DIMENSIONS Left Atrium (2D)3.9 (1.6-4.0cm)IVSd1.6 (0.7-1.1cm) LVDd3.2 (3.9-5.9cm)PWd1.7 (0.7-1.1cm) LVDs2.0 (2.5-4.0cm)FS (%) 38.2 % LVEF (%)70.0 (>50%) M-Mode DIMENSIONS Aortic Root2.60 (2.2-3.7cm)Aortic Cusp Exc.1.40 (1.5-2.0cm) Aortic Valve AoV Peak Htlvbbfu215.0cm/Sheryl Peak GR.19mmHg Mitral Valve MV E Ngoyjrrw12.1cm/sMV A Dawiruzq940.0cm/sE/A ratio0.6 TDI E/Lateral E'0.0E/Medial E'0.0 Tricuspid Valve TR Peak Vttsmxrn608uf/sRAP [id number] Peak Gr.17mmHg [id number] LEFT VENTRICLE The left ventricle is normal size. There is moderate concentric left ventricular hypertrophy. The left ventricular function is normal. The left ventricular ejection fraction is within the normal range.EF:65-70%. Tissue Doppler imaging reveals mild left ventricular diastolic dysfunction. RIGHT VENTRICLE The right ventricle is normal size. The right ventricular systolic function is normal. ATRIA The left atrium size is normal. The right atrium size is normal. AORTIC VALVE Aortic Valve Thickened due to Calcification but Opening is Still Adequate. There is trace aortic regurgitation. MITRAL VALVE The mitral valve is normal in structure. Mitral regurgitation is mild. TRICUSPID VALVE The tricuspid valve is normal in structure. There is mild tricuspid regurgitation.RVSP: 27mm Hg. PERICARDIAL EFFUSION Very Small Posterior Pericardial Effusion. <Conclusion> The left ventricle is normal size. There is moderate concentric left ventricular hypertrophy. The left ventricular function is normal. The left ventricular ejection fraction is within the normal range.EF:65-70%. Tissue Doppler imaging reveals mild left ventricular diastolic dysfunction. The right ventricle is normal size. The right ventricular systolic function is normal. The left atrium size is normal. The right atrium size is normal. Aortic Valve Thickened due to Calcification but Opening is Still Adequate. There is mild aortic regurgitation. The mitral valve is normal in structure. Mitral regurgitation is mild. The tricuspid valve is normal in structure. There is mild tricuspid regurgitation.RVSP: 27mm Hg. Very Small Posterior Pericardial Effusion.
[2018-03-03] MEDS: Metoprolol 1 mg/ml Inj IVP PRN (17:45)
[2018-03-03] MEDS: Menthol/Methyl Salicylate Ointment(1 oz) TOP SCH (22:30)
[2018-03-04] MEDS: Vancomycin 1gm in NS 250ml 1 GM/250 ML BAG IVPB SCH ×2 (02:26→14:20)
[2018-03-04] MEDS: Nitroglycerin 2% Ointment Foilpak UD TOP SCH ×6 (02:29→22:40)
[2018-03-04] MEDS: Insulin Reg-LOW-Coverage SC SCH ×4 (08:06→22:26)
[2018-03-04] MEDS: Levalbuterol 0.63 MG/3 ML Inhal Soln UD IH SCH ×3 (08:29→20:40)
[2018-03-04] MEDS: Arformoterol 15 mcg/2 ml Inh Sol IH SCH ×2 (08:29→20:40)
[2018-03-04] MEDS: Budesonide 0.5 mg/2 ml Inhal Susp UD IH SCH ×2 (08:29→20:40)
[2018-03-04] MEDS: Menthol/Methyl Salicylate Ointment(1 oz) TOP SCH ×4 (09:39→22:36)
[2018-03-04] MEDS: Cefepime 1gm in NS 100ml 1 GM/100 ML BAG IVPB SCH ×2 (09:40→22:32)
--- NOTE | 2018-03-04 10:40 | PN ---
DATE: 03/03/2018 SUBJECTIVE: This 77-year-old female was examined at her bedside on the cardiac antonio of the [facility] on 03/03/2018. This case was reviewed in detail with her nurse, Loni Corcoran, registered nurse. The patient is more alert today, but chronically confused. She is presently wearing nasal O2. She denied any fever, chills, chest pain or shortness of breath and was wearing BiPAP last evening according to the nursing staff. She remains in a sinus rhythm with premature atrial contractions on the cardiac nurse specialist. PHYSICAL EXAMINATION: VITAL SIGNS: Her temperature was 98.3, respirations 19, pulse 117 and blood pressure 183/88. Pulse ox 100% on 35% FIO2. HEENT: Head: Normocephalic, atraumatic. Eyes: No icterus. Ears: Clear. Throat: Noninjected. NECK: Supple. HEART: Regular S1, S2. No pathological rubs, murmurs or gallops. LUNGS: Had occasional rhonchi and expiratory wheezing that cleared with coughing. ABDOMEN: Obese, nontender. No palpable organomegaly. No rebound. No guarding. No tenderness. No CVA tenderness. EXTREMITIES: No edema. SKIN: No new rash. She has a chronic sacral sore. VASCULAR: Legs warm to touch. PSYCHOLOGICAL: Alert, but chronically confused. NEURO: Deconditioned, bedridden, chronic. LABORATORY DATA: White count 4800, hemoglobin 10.1, hematocrit 32.7, MCV 95.1, platelets 153,000. PT/INR 1.09, PTT 27.8. Sodium 141, K 3.6, chloride 98, bicarb 37, BUN 15, creatinine 0.8, random blood sugar 157, calcium 9.2. Urinalysis: Trace bacteria. Blood culture, no growth at 24 hours. Chest x-ray was reviewed. It shows a hazy density at the mid to inferior left lung suspicious for possible effusion with possible underlying airspace disease not excluded. Haziness was also noted in the right base suggestive of atelectasis or infiltrate. No right pleural effusion was noted. There was no pneumothorax. Borderline pulmonary vascular congestion was noted. EKG was reviewed. It showed sinus rhythm with PACs, nonspecific ST-T wave abnormalities. IMPRESSION: A 77-year-old female with advanced chronic obstructive pulmonary disease and history of noncompliance with wearing bilevel positive airway pressure and nasal O2 at her [facility] facility with comorbidities of advanced organic brain syndrome, chronic obstructive pulmonary disease, insulin-dependent diabetes mellitus, chronic hypertension, cardiomyopathy, history of stable chronic systolic congestive heart failure, glaucoma, right eye blindness, atherosclerotic heart disease stable, peptic ulcer disease with gastroesophageal reflux disease, iron-deficiency anemia for which her daughter states she had an unremarkable endoscopy and colonoscopy at the [facility] in 12/2017 with chronic hypertension, now accelerated and this admission with severe metabolic encephalopathy and unresponsiveness in the setting of not wearing her bilevel positive airway pressure at the local long term because of belligerent, agitation and noncooperation. PLAN: The plan at present is to maintain this patient on the cardiac antonio for her medications continue to be adjusted. At present, she is receiving Zofran 4 mg IV every 6 hours p.r.n. nausea, vomiting; Xopenex inhalational therapy 0.63 mg t.i.d. She will continue on vancomycin 1 g IV every 12, Maxipime 1 g IV every 12 for airspace disease and probable aspiration pneumonia as noted on her admission chest x-ray, also receiving Lasix 40 mg IV every 12 hours to handle her pulmonary vascular congestion also noted on chest x-ray. She will continue on Pepcid 20 mg IV every 12, Lopressor 5 mg IV every 6 hours p.r.n. accelerated hypertension if systolic blood pressure should be greater than 160 or diastolic blood pressure should be greater than 100. She continues on regular R low-dose insulin protocol before meals and at bedtime, nitroglycerin 2 inches to chest wall every 4 hours scheduled, Brovana inhalational therapy 15 mcg inhalational every 12 with Pulmicort inhalational 0.5 mg every 12. She is ordered to receive Bengay topically to affected joints four times daily as necessary for pain. A 2-D echocardiogram has been scheduled. She will require pulmonary toiletry, BiPAP and nasal O2 as outlined. Physical therapy at bedside and greater than 35 minutes was spent in the care, review of x-rays, discussion of the patient's progress with nursing and outlining of orders for her today. Overall prognosis remains poor due to her noncompliance with medical recommendations, especially BiPAP and nasal O2 while at the [facility] on a repeated basis and this has been discussed in detail with her daughter, Janene Andino in detail. All questions were answered. Mikayla Rodriguez MD AZALEA
[2018-03-04] MEDS: Famotidine 20mg/50ml 20 MG/50 ML BAG IVPB SCH ×2 (11:37→22:32)
[2018-03-04] MEDS: Brimonidine 0.15% 50 DROP/5 ML BOTTLE OU SCH (11:47)
[2018-03-04] MEDS: Latanoprost 2.5 ml Opht Soln OU SCH (22:33)
[2018-03-05] MEDS: Nitroglycerin 2% Ointment Foilpak UD TOP SCH ×7 (02:35→23:51)
[2018-03-05] MEDS: Vancomycin 1gm in NS 250ml 1 GM/250 ML BAG IVPB SCH ×2 (02:35→14:03)
[2018-03-05 06:51] LABS: HEMOGLOBIN 8.9 g/dL (12.0-16.0); MEAN CELL VOLUME 92.2 fl (80.0-105.0); MEAN CORPUSCULAR HGB CONC 31.4 g/dl (31.0-37.0); MEAN PLATELET VOLUME 10.5 fl (7.0-11.0); RBC 3.07 10^6/uL (3.5-6.1); RED CELL DISTRIBUTION WIDTH 13.8 % (11.5-14.5); WHITE BLOOD COUNT 4.3 10^3/ul (4.5-11.0)
[2018-03-05 07:19] LABS: BLOOD UREA NITROGEN 9 mg/dL (7-21); CALCIUM 8.7 mg/dL (8.4-10.5); GFR NON-AFRICAN AMERICAN > 60
[2018-03-05] MEDS: Insulin Reg-LOW-Coverage SC SCH ×4 (07:30→21:58)
[2018-03-05] MEDS: Budesonide 0.5 mg/2 ml Inhal Susp UD IH SCH ×2 (08:27→19:35)
[2018-03-05] MEDS: Arformoterol 15 mcg/2 ml Inh Sol IH SCH ×2 (08:27→19:35)
[2018-03-05] MEDS: Levalbuterol 0.63 MG/3 ML Inhal Soln UD IH SCH ×3 (08:27→19:35)
[2018-03-05] MEDS: Famotidine 20mg/50ml 20 MG/50 ML BAG IVPB SCH ×2 (10:25→21:25)
[2018-03-05] MEDS: Brimonidine 0.15% 50 DROP/5 ML BOTTLE OU SCH (10:26)
[2018-03-05] MEDS: Cefepime 1gm in NS 100ml 1 GM/100 ML BAG IVPB SCH ×2 (10:26→21:25)
[2018-03-05] MEDS: Menthol/Methyl Salicylate Ointment(1 oz) TOP SCH ×4 (10:27→21:23)
--- NOTE | 2018-03-05 10:37 | PN ---
DATE: 03/04/2018SUBJECTIVE: This 77-year-old female remains hospitalized on the cardiac antonio at the [facility] and this case was reviewed in detail with nurse, Loni Angeles, registered nurse. The patient remains weak and deconditioned, is essentially bed ridden and is becoming more noncompliant with wearing nasal O2 and BiPap. Nursing staff reports that the patient has episodes of belligerence and foul talking. There were no reports of fever, chills, chest pain or shortness of breath. PHYSICAL EXAMINATION: VITAL SIGNS: On physical exam, she was in a normal sinus rhythm to sinus tachycardia on the cardiac specialist with a temperature of 97.6, pulse of 92, blood pressure 166/98 and respiratory rate of 20. GENERAL: She has been advanced to small-bite sized portions with thin liquids by speech pathology. HEAD: Normocephalic, atraumatic. Eyes: No icterus. Ears: Clear. Throat: Noninjected. NECK: Supple. HEART: S1, S2. No pathological rubs, murmurs or gallops. LUNGS: With occasional rhonchi bilaterally. Minimal expiratory wheezing. ABDOMEN: Soft. EXTREMITIES: No edema. SKIN: With stable sacral sore. VASCULAR: Legs warm to touch. PSYCHOLOGICAL: Chronic confusion with periods of agitation. NEURO: Bed bound chronically. LABORATORY DATA: White count 4800, hemoglobin 10.1, hematocrit 32.7, platelets 153,000. PT/INR 1.09, PTT 27.8. Random blood sugar 278. Urinalysis showed trace bacteria. Blood cultures are showing no growth at 48 hours. Her 2-D echocardiogram was reviewed. Her left ventricle is normal in size with moderate concentric left ventricular hypertrophy. Left ventricular function was reportedly normal with an ejection fraction of 65-70%. Right ventricle was normal in size. The left atrium was normal as well as right atrium in size. There was mild aortic regurgitation, mild mitral regurgitation, mild tricuspid regurgitation. IMPRESSION: A 77-year-old female with recurrent exacerbation of chronic obstructive pulmonary disease secondary to noncompliance with O2 and BiPap at the local [facility] where she resides with comorbidities of chronic sacral sore due to bedridden status and noncompliance with nursing staff turning this patient on a continuous basis as well as glaucoma, insulin-dependent diabetes mellitus, stable atherosclerotic heart disease, chronic depression, hypertension, probable aspiration pneumonia, degenerative arthritis and anemia of chronic disease as well as component of iron-deficiency anemia. The plan as discussed with nurse, Karthik, will be to continue glaucoma eyedrops, Brovana inhalational therapy, Pulmicort inhalational therapy, Humulin R low-dose insulin coverage before meals and at bedtime, Lasix 40 mg IV every 12 hours, Lexapro 10 mg p.o. daily will be reinstituted. Lopressor 100 mg p.o. b.i.d. has been added to her profile and Lopressor 5 mg IV every 6 hours p.r.n. systolic blood pressure greater than 160 or diastolic blood pressure greater than 100. She continues on Maxipime 1 g IV every 12 hours, vancomycin 1 g IV every 12 hours, Pepcid 20 mg IV every 12 hours, Xopenex inhalational therapy, Zestril 20 mg p.o. b.i.d. and Zofran 4 mg IV every 6 hours p.r.n. nausea and vomiting. She will have repeat basic metabolic panel and CBC in the a.m. and Nursing will be encouraging this patient to cooperate with nasal O2 and BiPap in the evening. Based on her clinical progress, additional diagnostic testing and workup will be entertained. Greater than 35 minutes was spent in the care management, addition of orders, reviewing of x-rays and echocardiography and discussion of this patient with Nursing. All questions were answered. Mikayla Rodriguez MD
[2018-03-05] MEDS: Insulin Detemir 100 units/ml Vial (Levemir) SC SCH (17:56)
[2018-03-05] MEDS: Latanoprost 2.5 ml Opht Soln OU SCH (21:23)
[2018-03-05] MEDS: Metoprolol 1 mg/ml Inj IVP PRN (23:17)
--- NOTE | 2018-03-06 00:18 | PN ---
DATE: 03/05/2018 SUBJECTIVE: This 77-year-old female was examined on the cardiac antonio on the morning of 03/05/2018. This was in the presence of her nurse, Chrissy James , registered nurse. The patient is much less responsive today. According to nurse James, she was able to be aroused to take a.m. medication and eat her diet with assistance. However, she is much more lethargic and apparently had refused to wear her BiPap last evening. When I examined her on the cardiac antonio, she was in a normal sinus rhythm on conveyor monitor. PHYSICAL EXAMINATION: VITAL SIGNS: Temperature 98.6, pulse 68, blood pressure 168/69, respirations 18 and unlabored. HEAD: Normocephalic, atraumatic. Eyes: No icterus. Ears: Clear. Throat: Noninjected. NECK: Supple. HEART: Was regular S1, S2. No pathological rubs, murmurs or gallops. LUNGS: Had occasional rhonchi. ABDOMEN: Soft. EXTREMITIES: No edema. SKIN: Without rash. NEUROLOGIC: Lethargic. VASCULAR: Legs warm to touch. PSYCHOLOGICAL: Episodes of belligerence and refusal to wear when asked to wear BiPap, now lethargic with metabolic encephalopathy. LABORATORY DATA: White count 4300, hemoglobin 8.9, hematocrit 28.3, platelets 144,000. PT/INR 1.09, PTT 27.8. Sodium 137, K 3.4, chloride 93, bicarb 39, BUN 9, creatinine 0.7, random blood sugar was 276 with a calcium of 8.7. A 2-D echocardiogram was reviewed with nursing. It showed normal left ventricle size, moderate concentric left ventricular hypertrophy, ejection fraction 65% with normal left atrial size, mild aortic regurgitation, mild mitral regurgitation, mild tricuspid regurgitation. No significant pericardial effusion. IMPRESSION: A 77-year-old female with recurrent metabolic encephalopathy in the setting of carbon dioxide narcosis and history of respiratory failure and advanced chronic obstructive pulmonary disease and persistent refusal to wear her BiPap as outlined with comorbidities of glaucoma, iron-deficiency anemia, bedridden status with sacral chronic ulcer, insulin-dependent diabetes mellitus, history of stable atherosclerotic heart disease and admission with congestive heart failure, uncontrolled insulin-dependent diabetes mellitus, recurrent depression, organic brain syndrome, history of agitation syndrome, chronic hypertension, aspiration pneumonia, accelerated hypertension, degenerative arthritis. PLAN: As discussed with nurse Davislivan at bedside will be to apply her BiPap presently which we did. Her current settings are FIO2 at 35%, IPAP 14, EPAP 6, rate 15. The patient did not resist the application of BiPap and will continue as able on Zestril, Xopenex, Xalatan and glaucoma eyedrops IV vanco, IV Maxipime, Timoptic eyedrops, Pulmicort inhalational therapy, Plavix, IV Pepcid, oral Norvasc, nitroglycerin to chest wall, metoprolol tartrate p.o., p.o. Lexapro, subcu Levemir, IV Lasix, subcu heparin, oral ferrous gluconate, Ecotrin 81 mg daily, inhalational Brovana and Alphagan eyedrops. She will have repeat basic metabolic panel and CBC in the a.m. and based on clinical progress, additional diagnostic testing and workup will be entertained. I will order a psychological consultation with Dr. Escamilla from Psychiatry for the a.m. to ask him for assistance in possible psychotropic medication adjustment for this patient's periods of belligerence and agitation, which cause her not to accept her BiPap application which causes difficulties with her respiratory status. Greater than 35 minutes was spent in the care management, review of labs, orders, x-rays and outlining of care and treatment for this patient today with nurse, Chrissy James at bedside. All questions were answered. Mikayla Rodriguez MD MTDD
[2018-03-06] MEDS: Vancomycin 1gm in NS 250ml 1 GM/250 ML BAG IVPB SCH ×2 (01:18→13:35)
[2018-03-06] MEDS: Nitroglycerin 2% Ointment Foilpak UD TOP SCH ×5 (03:34→23:02)
[2018-03-06 06:57] LABS: HEMOGLOBIN 9.7 g/dL (12.0-16.0); MEAN CELL VOLUME 91.4 fl (80.0-105.0); MEAN CORPUSCULAR HEMOGLOBIN 28.9 pg (25.0-35.0); MEAN CORPUSCULAR HGB CONC 31.6 g/dl (31.0-37.0); MEAN PLATELET VOLUME 11.2 fl (7.0-11.0); RBC 3.36 10^6/uL (3.5-6.1); RED CELL DISTRIBUTION WIDTH 13.5 % (11.5-14.5); WHITE BLOOD COUNT 3.7 10^3/ul (4.5-11.0)
[2018-03-06] MEDS: Budesonide 0.5 mg/2 ml Inhal Susp UD IH SCH ×2 (07:30→19:48)
[2018-03-06] MEDS: Levalbuterol 0.63 MG/3 ML Inhal Soln UD IH SCH ×4 (07:30→21:06)
[2018-03-06] MEDS: Arformoterol 15 mcg/2 ml Inh Sol IH SCH ×2 (07:30→19:48)
[2018-03-06 07:35] LABS: BLOOD UREA NITROGEN 10 mg/dL (7-21); GFR NON-AFRICAN AMERICAN > 60
[2018-03-06] MEDS: Insulin Detemir 100 units/ml Vial (Levemir) SC SCH ×2 (09:27→16:49)
[2018-03-06] MEDS: Insulin Reg-LOW-Coverage SC SCH ×3 (09:31→16:50)
[2018-03-06] MEDS: Cefepime 1gm in NS 100ml 1 GM/100 ML BAG IVPB SCH ×2 (09:32→23:00)
[2018-03-06] MEDS: Famotidine 20mg/50ml 20 MG/50 ML BAG IVPB SCH (09:32)
--- NOTE | 2018-03-06 09:47 | CT ---
Date of service: 03/06/2018 PROCEDURE: CT HEAD WITHOUT CONTRAST. HISTORY: AMS COMPARISON: None available. TECHNIQUE: Axial computed tomography images were obtained through the head/brain without intravenous contrast. Radiation dose: Total exam DLP = 824 mGy-cm. This CT exam was performed using one or more of the following dose reduction techniques: Automated exposure control, adjustment of the mA and/or kV according to patient size, and/or use of iterative reconstruction technique. FINDINGS: HEMORRHAGE: No intracranial hemorrhage. BRAIN: No mass effect or edema. Chronic microvascular changes are seen in the periventricular white matter and basal ganglia. VENTRICLES: Unremarkable. No hydrocephalus. CALVARIUM: Unremarkable. PARANASAL SINUSES: Unremarkable as visualized. No significant inflammatory changes. MASTOID AIR CELLS: Unremarkable as visualized. No inflammatory changes. OTHER FINDINGS: The report concurs with the preliminary [facility] report IMPRESSION: No acute findings
[2018-03-06] MEDS: Menthol/Methyl Salicylate Ointment(1 oz) TOP SCH ×3 (10:00→18:16)
[2018-03-06] MEDS: Brimonidine 0.15% 50 DROP/5 ML BOTTLE OU SCH (10:00)
[2018-03-06] MEDS: Latanoprost 2.5 ml Opht Soln OU SCH (22:15)
[2018-03-06] MEDS: Metoprolol 1 mg/ml Inj IVP PRN (23:01)
--- NOTE | 2018-03-07 00:11 | CON ---
DATE: 03/06/2018 IDENTIFYING INFORMATION: The patient is a 77-year-old -Congol[place] female who has appeared confused and agitated. I have reviewed her chart and discussed the case with Dr. Rodriguez. As noted, the patient has been having episodes of belligerence and has been refusing to wear CPAP or BiPAP machine when asked to wear this. She is considered to have a metabolic encephalopathy based on her compromised pulmonary status, i.e., carbon dioxide narcosis. The patient had been hospitalized initially at the [facility] and had been on the ventilator for two weeks. Her daughter reportedly removed her and had transferred her to [facility] where she was briefly before then going to a custodial, but overnight suffered a further reversal and brought here. The patient herself presently appears to be a poor historian, although I was able to elicit some information from her. She however is oriented, slow in thinking, and exhibits much tangentiality, circumstantiality, and automatism such as picking with a tissue at the [employer] calendar in front of her. 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 At sometime, she got , she states she has 11 children, but that her was drowned and . The face sheet notes that she is . She herself indicates that she is one of her parents' 9 children (four sons and four daughters). She denies having seen a psychiatrist before. She complains of some head discomfort, but is vague with regard to her symptomatology. She denies overt auditory or visual hallucinations. She presently is receiving Brovana, Ecotrin, Fergon, Lasix, insulin. She is on 10 mg of Lexapro for reasons unclear to me. Blood pressure presently is 198/95, pulse 86, temperature 97.9, respiratory rate 20. The patient shows a significant lowering in her white count to 3.7, hemoglobin 9.7, hematocrit 30.7. Her potassium is low at 3.2, glucose is elevated at 167. I will the start the patient on a low dose of Risperdal to try to give her dose that might attenuate her belligerence without at the same time significantly impairing her respiratory drive. We will monitor with you. Thank you as always for this consultation. Mo Escamilla MD/ PhD
[2018-03-07] MEDS: Nitroglycerin 2% Ointment Foilpak UD TOP SCH ×6 (05:00→22:37)
[2018-03-07] MEDS: Vancomycin 1gm in NS 250ml 1 GM/250 ML BAG IVPB SCH ×2 (05:30→13:18)
[2018-03-07] MEDS: Metoprolol 1 mg/ml Inj IVP PRN (05:30)
[2018-03-07] MEDS ORDERED: Dextrose 50% SYRINGE Inj (50 ml) ONE (07:41)
[2018-03-07] MEDS: Budesonide 0.5 mg/2 ml Inhal Susp UD IH SCH ×2 (08:00→19:50)
[2018-03-07] MEDS: Levalbuterol 0.63 MG/3 ML Inhal Soln UD IH SCH ×3 (08:00→19:50)
[2018-03-07] MEDS: Arformoterol 15 mcg/2 ml Inh Sol IH SCH ×2 (08:00→19:50)
[2018-03-07] MEDS: Insulin Reg-LOW-Coverage SC SCH ×5 (08:03→22:35)
[2018-03-07] MEDS: Insulin Detemir 100 units/ml Vial (Levemir) SC SCH ×2 (08:04→17:36)
--- NOTE | 2018-03-07 08:59 | PN ---
DATE: 03/06/2018 SUBJECTIVE: This 77-year-old female was examined at her bedside on the morning of 03/06/2018. Her case was reviewed in detail with Dr. Escamilla from Psychiatry who has come to see this patient because of agitation and belligerence episodes where she refuses to wear her BiPAP. As a witnessed consequence, she experiences CO2 narcosis, metabolic encephalopathy, which puts her at great risk of respiratory failure. After lengthy discussion with Dr. Escamilla, it has been decided she will be started on low-dose Risperdal, which will be titrated to pulmonary status and clinical response. At present, the patient is alert but confused. She did eat this morning and take her medication and remains in a sinus rhythm on the bus driver/monitor. PHYSICAL EXAMINATION: VITAL SIGNS: Shows temperature 97.9, respirations 20, pulse 86, blood pressure 164/85. HEAD: Normocephalic, atraumatic. EYES: No icterus. EARS: Clear. THROAT: Noninjected. NECK: Supple. HEART: Regular S1, S2. No pathological rubs, murmurs or gallops. LUNGS: With occasional rhonchi that clear with coughing. ABDOMEN: Soft. EXTREMITIES: No edema. SKIN: Without rash. With a sacral sore, chronic. NEUROLOGICAL: Confused and able to move all extremities, but chronically bedridden and deconditioned. VASCULAR: Legs warm to touch. PSYCHOLOGICAL: Chronic confusion, periods of agitation. LABORATORY DATA: White count 3700, hemoglobin 9.7, hematocrit 30.7, platelets 144,000. Sodium 138, K 3.2, chloride 93, bicarb 44, BUN 10, creatinine 0.7, random blood sugar 167, calcium 9. Blood culture show no growth to date. CT of the head was reviewed. It shows no evidence of acute infarct. No hemorrhage. No hematoma. No subdural hematoma. IMPRESSION: A 77-year-old female with [id number] chronic obstructive pulmonary disease with history of CO2 narcosis causing metabolic encephalopathy in a patient who needs nighttime BiPAP with repeated refusal to wear it on a consistent basis with history of reported organic brain syndrome, previous depression, intermittent psychosis, history of hypoxemia, atherosclerotic heart disease, insulin-dependent diabetes mellitus, episodic congestive heart failure, chronic hypertension, peptic ulcer disease with gastroesophageal reflux disease, iron-deficiency anemia, sacral sore, glaucoma, degenerative arthritis. PLAN: At present as discussed with Dr. Escamilla from Psychiatry and nursing will be to maintain the patient on the cardiac antonio where she is currently wearing nasal O2 and has had an order for evening BiPAP. She will continue on glaucoma eyedrops, Brovana and Pulmicort inhalational therapy, Ecotrin 81 mg p.o. daily and ferrous gluconate three times daily. She is receiving heparin 5000 units subcu every 12 for DVT prophylaxis and continues on Levemir 35 units before meals, breakfast and dinner with Humulin R insulin coverage before meals and at bedtime. She will continue on Lasix 40 mg IV every 12 and potassium supplement will be instituted 20 mEq p.o. t.i.d. She will continue on Lopressor 100 mg b.i.d. with Lopressor 5 mg IV every 6 hours p.r.n. accelerated hypertension if her systolic blood pressure should be greater than 160 or her diastolic blood pressure should be greater than 100. She also continues on Maxipime 1 g IV every 12, vancomycin 1 g IV every 12, nitroglycerin topically to her chest wall 1 inch every 4, Norvasc 10 mg p.o. daily, Pepcid 20 mg p.o. every 12, Plavix 75 mg p.o. daily, Risperdal 0.25 mg p.o. at bedtime, Xopenex inhalational therapy three times daily and Zestril 20 mg p.o. b.i.d. She is ordered to have a dysphagia modified consistency heart-healthy diabetic diet. She remains on neuro checks every shift. She is placed on an air mattress and high fall risk protocol and she is wearing sequential compression device, antiembolism stockings with boot heels to prevent heel breakdown as well and is receiving wound care to her sacral sores. Based on her clinical progress, additional diagnostic testing and workup will be entertained. Greater than 35 minutes was spent in the care management, review of labs, orders, x-rays, CAT scans and discussion of this patient with Dr. Escamilla from Psychiatry as well as nursing. All questions were answered. Mikayla Rodriguez MD [facility] # [id number] MTDD
[2018-03-07] MEDS: Menthol/Methyl Salicylate Ointment(1 oz) TOP SCH ×4 (10:28→22:34)
[2018-03-07] MEDS: Potassium Chloride 20 mEq/15 ml LIQ UD PO SCH ×4 (10:29→17:26)
[2018-03-07] MEDS: Cefepime 1gm in NS 100ml 1 GM/100 ML BAG IVPB SCH (10:35)
[2018-03-07] MEDS: Brimonidine 0.15% 50 DROP/5 ML BOTTLE OU SCH (10:38)
--- NOTE | 2018-03-07 19:56 | PN ---
DATE: 03/07/2018 SUBJECTIVE: This 77-year-old female was examined on the cardiac antonio at the [facility] on the morning of 03/07/2018. Present for this interview was nurse, Adeline Medina, registered nurse. The patient remains weak, deconditioned and bedridden with periods of agitation and belligerence and reportedly she refused to wear her BiPAP again last evening. This caused her to become lethargic and once lethargic, the patient was able to have the nursing staff replace her CPAP. She was given a dose of Risperdal 0.25 mg p.o. at bedtime last night. At present, she is alert, confused, and in a sinus rhythm on the personnel monitor. PHYSICAL EXAMINATION: VITAL SIGNS: Showed temperature 97.8, respirations 20, pulse 77, and blood pressure 193/75 with a pulse ox of 100% on 35% FiO2. HEENT: Head: Normocephalic, atraumatic. Eyes: No icterus. Ears: Clear. Throat: Noninjected. NECK: Supple. HEART: Regular, S1 and S2. LUNGS: Rhonchi that cleared with coughing. ABDOMEN: Soft. EXTREMITIES: No edema. SKIN: Chronic sacral sore. VASCULAR: Legs warm to touch. PSYCHOLOGIC: Chronic confusion. NEUROLOGIC: Bedridden and deconditioned. LABORATORY DATA: White count 3700, hemoglobin 9.7, hematocrit 30.7, and platelets 144,000. Random blood sugar 142. Sodium 138, K 3.2, chloride 93, bicarb 44. BUN 10, creatinine 0.7. Calcium 9. Blood culture showed no growth to date. Head CT was reviewed. It showed no evidence of infarct. No hemorrhage. No obvious subdural hematoma, nor old stroke. IMPRESSION: A 77-year-old female with recurrent respiratory failure secondary to CO2 narcosis and refusal to wear BiPAP with comorbidities of glaucoma, chronic anxiety, history of depression, stable atherosclerotic heart disease, iron-deficiency anemia with negative gastrointestinal workup in 12/2017, at [facility] as per family, chronic insulin-dependent diabetes mellitus, hypertension, peptic ulcer disease with gastroesophageal reflux disease, intermittent psychosis, degenerative arthritis, bedridden status, and chronic sacral sores. As discussed with nurse, Adam, the patient will have her Risperdal increased to 0.5 mg p.o. at bedtime and an order for Ativan 0.5 mg p.o. or IV every 6 hours p.r.n. agitation has been ordered. She is encouraged to wear her BiPAP at bedtime with nasal O2 throughout the day while receiving pulmonary toiletry with Xopenex and Brovana, Pulmicort inhalational therapy. She will continue on glaucoma eyedrops as well as Ecotrin, Fergon, subcu heparin, insulin, Lasix, Lexapro, Lopressor, p.r.n. nitroglycerin for accelerated hypertension, Norvasc, Pepcid, Plavix, oral potassium supplements, Zestril, and p.r.n. Zofran. She is ordered to have a basic metabolic panel repeated in the a.m. She will continue to have a dysphagia modified diet with aspiration precautions, air mattress, fall precautions, neuro checks, sequential compression device, antiembolism stockings while wearing right and left heel cradles. All of the above was reviewed with nurse, Adam and her daughter, Janene Vanegas, power of divorce attorney. All questions were answered. Greater than 35 minutes was spent in the care management, adjustment of orders, review of CAT scans, and discussion of this patient with Nursing and daughter. All questions were answered. Mikayla Rodriguez MD MTDD
[2018-03-07] MEDS: Latanoprost 2.5 ml Opht Soln OU SCH (22:38)
[2018-03-08] MEDS: Nitroglycerin 2% Ointment Foilpak UD TOP SCH ×6 (02:45→22:15)
[2018-03-08 07:09] LABS: BLOOD UREA NITROGEN 16 mg/dL (7-21); CALCIUM 9.2 mg/dL (8.4-10.5); GFR NON-AFRICAN AMERICAN > 60
[2018-03-08] MEDS: Levalbuterol 0.63 MG/3 ML Inhal Soln UD IH SCH ×3 (07:25→19:23)
[2018-03-08] MEDS: Budesonide 0.5 mg/2 ml Inhal Susp UD IH SCH ×2 (07:25→19:23)
[2018-03-08] MEDS: Arformoterol 15 mcg/2 ml Inh Sol IH SCH ×2 (07:25→19:23)
[2018-03-08] MEDS: Insulin Reg-LOW-Coverage SC SCH ×4 (07:59→22:31)
[2018-03-08] MEDS: Insulin Detemir 100 units/ml Vial (Levemir) SC SCH ×2 (08:22→17:20)
[2018-03-08] MEDS: Potassium Chloride 20 mEq/15 ml LIQ UD PO SCH ×3 (11:00→17:21)
[2018-03-08] MEDS: Menthol/Methyl Salicylate Ointment(1 oz) TOP SCH ×4 (11:01→22:30)
[2018-03-08] MEDS: Brimonidine 0.15% 50 DROP/5 ML BOTTLE OU SCH (11:02)
--- NOTE | 2018-03-08 13:07 | RAD ---
Date of service: 03/08/2018 HISTORY: for comparison COMPARISON: 03/02/2018 FINDINGS: LUNGS: Improved aeration of the lungs. PLEURA: Decrease in pleural effusions. CARDIOVASCULAR: No radiographic findings to suggest acute or significant cardiovascular disease. OSSEOUS STRUCTURES: No significant abnormalities. VISUALIZED UPPER ABDOMEN: Normal. OTHER FINDINGS: None. IMPRESSION: Improving infiltrates and pleural effusions. Residual findings remain primarily in the left lung and left pleural space.
[2018-03-08] MEDS: Latanoprost 2.5 ml Opht Soln OU SCH (22:16)
[2018-03-09] MEDS: Nitroglycerin 2% Ointment Foilpak UD TOP SCH ×4 (02:05→14:45)
[2018-03-09 06:05] VITALS: O2SAT 96
--- NOTE | 2018-03-09 06:37 | PN ---
DATE: 03/08/2018 SUBJECTIVE: This 77-year-old female was examined at her bedside on the cardiac antonio at [facility] on the morning of 03/08/2018. Present for the interview was her nurse, Loni Angeles, registered nurse. The patient reportedly tolerated BiPAP last evening, was less agitated on adjusted Risperdal dosing of 0.5 mg p.o. at bedtime and did not require oral of parenteral Ativan, but was cooperative with BiPAP. At present, she is alert, but chronically confused, but eating diet with assistance and tolerating oral medication. 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 PHYSICAL EXAMINATION: VITAL SIGNS: Temperature is 98.7, respirations 19, pulse 76, and blood pressure 137/68. Pulse ox 100% on nasal O2. HEENT: Head: Normocephalic, atraumatic. Eyes: No icterus. Ears: Clear. Throat: Noninjected. NECK: Supple. HEART: Regular, S1 and S2. No pathological rubs, murmurs or gallops. LUNGS: With occasional rhonchi that cleared with coughing. ABDOMEN: Soft. EXTREMITIES: No edema. SKIN: Without rash. Chronic sacral sore, stable. NEUROLOGIC: Chronic confusion. Deconditioned and bedridden. VASCULAR: Legs warm to touch. PSYCHOLOGIC: Alert, but confused. LABORATORY DATA: White count 3700, hemoglobin 9.7, hematocrit 30.7, platelets 144,000. Sodium 138, K 3.6, chloride 94, bicarb 43, BUN 16, creatinine 0.9, random blood sugar 147, calcium 9.2. Chest x-ray was ordered for comparison and reviewed. It shows improved aeration of the lungs, decrease in her pleural effusion and no pneumothorax, as well as improving infiltrates from previous chest x-ray with residual findings primarily in her left lung and left pleural space. IMPRESSION: A 77-year-old female with decompensated systolic congestive heart failure secondary to respiratory insufficiency and chronic obstructive pulmonary disease exacerbation, worsened by her refusal to wear BiPAP and nasal O2 at her local [facility] where she chronically resides with comorbidities of advanced organic brain syndrome; glaucoma; iron-deficiency anemia; insulin-dependent diabetes mellitus; hypertension; chronic depression; peptic ulcer disease with gastroesophageal reflux disease; coronary artery disease with stents, stable and hypertension and chronic anemia. PLAN: As discussed with nurseKarthik will be to continue glaucoma eyedrops from home; Ativan p.r.n. agitation or refusal to wear BiPAP; Brovana inhalational therapy; Ecotrin; Fergon; subcu heparin; Humulin R low-dose insulin protocol before meals, at bedtime; IV Lasix twice daily; subcu Levemir; Lexapro; Lopressor; nitroglycerin ointment to chest wall; Norvasc; Pepcid; Plavix; oral potassium; Pulmicort inhalational therapy; Risperdal; Timoptic, Xalatan; Xopenex; Zestril; and Zofran. The patient is being followed by Dr. Escamilla from Psychiatry. She is ordered to have BiPAP at bedtime with settings of the inspiratory positive airway pressure 14, expiratory positive airway pressure 6, fraction of inspired oxygen 35 and rate of 15. She continues on a dysphagia modified diet with advanced bite size and thin liquids, moderate carbohydrates and heart-healthy restrictions with assistance by nursing admin and aspiration precautions. She will continue on neuro checks every shift, air mattress, fall precautions and wound care instructions with Optifoam and frequent rotations and boots to both heels and sequential compression antiembolism stockings while in bed. All of the above was discussed in detail with the patient and case management, nurse practitioner. Greater than 35 minutes was spent in the care management, review of labs, orders, x-rays and outlining of adjusted orders for this patient today. All questions were answered. Mikayla Rodriguez MD
[2018-03-09 06:54] LABS: HEMOGLOBIN 9.2 g/dL (12.0-16.0); MEAN CELL VOLUME 92.4 fl (80.0-105.0); MEAN CORPUSCULAR HEMOGLOBIN 29.3 pg (25.0-35.0); MEAN CORPUSCULAR HGB CONC 31.7 g/dl (31.0-37.0); MEAN PLATELET VOLUME 11.1 fl (7.0-11.0); RBC 3.14 10^6/uL (3.5-6.1); RED CELL DISTRIBUTION WIDTH 13.6 % (11.5-14.5); WHITE BLOOD COUNT 3.2 10^3/ul (4.5-11.0)
[2018-03-09 07:48] LABS: BLOOD UREA NITROGEN 20 mg/dL (7-21); CALCIUM 9.5 mg/dL (8.4-10.5); GFR NON-AFRICAN AMERICAN 54
[2018-03-09] MEDS: Budesonide 0.5 mg/2 ml Inhal Susp UD IH SCH (08:03)
[2018-03-09] MEDS: Levalbuterol 0.63 MG/3 ML Inhal Soln UD IH SCH ×2 (08:03→13:37)
[2018-03-09] MEDS: Arformoterol 15 mcg/2 ml Inh Sol IH SCH (08:03)
[2018-03-09] MEDS: Insulin Reg-LOW-Coverage SC SCH ×3 (08:06→12:16)
[2018-03-09] MEDS: Insulin Detemir 100 units/ml Vial (Levemir) SC SCH ×2 (08:07→08:22)
[2018-03-09] MEDS: Potassium Chloride 20 mEq/15 ml LIQ UD PO SCH ×2 (10:44→14:40)
[2018-03-09] MEDS: Menthol/Methyl Salicylate Ointment(1 oz) TOP SCH ×2 (10:45→14:37)
[2018-03-09] MEDS: Brimonidine 0.15% 50 DROP/5 ML BOTTLE OU SCH (10:45)
[2018-03-09 12:48] VITALS: RESP 18
--- NOTE | 2018-03-09 13:01 | DS ---
SUMMARY: This 77-year-old female was examined at her bedside on the afternoon of , 03/09/2018. She is discharged to the [facility] in [place], [place] with final diagnoses of acute respiratory failure, improved; hypoxemia, improved; CO2 narcosis, improved; systolic congestive heart failure improved; chronic glaucoma; anxiety neurosis; chronic confusion; recurrent depression; intermittent psychosis; atherosclerotic heart disease, stable; iron-deficiency anemia; insulin-dependent diabetes mellitus; chronic sacral sores; peptic ulcer disease with gastroesophageal reflux disease. DISPOSITION: [facility]. DISCHARGE MEDS: Glaucoma eyedrops, Alphagan 0.15% 1 drop both eyes daily, Ativan 0.5 mg p.o. every 6 hours p.r.n. anxiety, Ecotrin 81 mg p.o. daily, ferrous gluconate 324 mg p.o. t.i.d., heparin 5000 units subcu every 12, Humulin R low-dose insulin protocol before meals and at bedtime, Lasix 40 mg b.i.d., Levemir 35 units before meals b.i.d. breakfast and dinner, Lexapro 10 mg at bedtime, Lopressor 100 mg b.i.d., Norvasc 10 mg daily, Pepcid 20 mg p.o. b.i.d., Plavix 75 mg p.o. daily, potassium 20 mEq t.i.d., Risperdal 0.5 mg p.o. at bedtime, Timoptic 0.5% 1 drop both eyes b.i.d., Xalatan eyedrops both eyes at bedtime, dual nebulizer t.i.d., Zestril 20 mg b.i.d. SUMMARY: This 77-year-old female was admitted with CHF and respiratory failure in the setting of chronic refusal to wear BiPAP or O2 at the local custodial. She was treated with parenteral diuretics, IV antibiotics, pulmonary toiletry and at the time of discharge, remains chronically confused, but less agitated with a temperature of 97.5, pulse of 80, blood pressure 153/77 and pulse ox of 96% on 2 L nasal O2. Discharge labs show white count 3200, hemoglobin 9.2, hematocrit 29, platelets 148,000. Sodium 138, K 4.1, chloride 93, bicarb 42, BUN 20, creatinine 1, random blood sugar 126, calcium 9.5. Chest x-ray was reviewed. It shows improvement in CHF and infiltrates and no effusion. She is discharged to [facility] for usp care were her overall prognosis remains poor given her failure to cooperate with nursing staff, belligerent behavior, periods of agitation and noncompliance with diet, medication O2 and BiPAP. She will return to [facility] with BiPAP at bedtime, instructions of IPAP of 14, EPAP of 6, FIO2 of 35 and a rate of 15 with 2 L nasal O2 [id number]. She is to receive wound care for her sacral sore, repositioning, heel cradles, air mattress and antiembolism stockings. Out of bed to chair daily as able and PT daily as tolerated. Her overall prognosis does remain poor and this was discussed in detail with nursing as well as daughter, Randy Vanegas, power of civil litigation attorney in great detail. Mikayla Rodriguez MD MTDLeann
[2018-03-09 17:01] VITALS: BP 146/74; PULSE 77; TEMP 98.8
== END 2018-03-09 17:40 | DRG 541 ==
LOC: ED 05:45 → ERH 09:23 → 2RNO 12:03
PROVIDERS: ADMIT Internal Medicine; ATTEND Internal Medicine
PROC: 5A09457 Assistance with Respiratory Ventilation, 24-96 Consecutive Hours, Continuous Positive Airway Pressure (ICD-10-PCS; principal; 2018-03-02)
PROC: 3E0F7GC Introduction of Other Therapeutic Substance into Respiratory Tract, Via Natural or Artificial Opening (ICD-10-PCS; 2018-03-02)
DX: J44.1 Chronic obstructive pulmonary disease with (acute) exacerbation (principal); J69.0 Pneumonitis due to inhalation of food and vomit; J96.01 Acute respiratory failure with hypoxia; L89.152 Pressure ulcer of sacral region, stage 2; I50.23 Acute on chronic systolic (congestive) heart failure; I11.0 Hypertensive heart disease with heart failure; I42.9 Cardiomyopathy, unspecified; F20.9 Schizophrenia, unspecified; F03.90 Unspecified dementia, unspecified severity, without behavioral disturbance, psychotic disturbance, mood disturbance, and anxiety; G93.41 Metabolic encephalopathy; I25.10 Atherosclerotic heart disease of native coronary artery without angina pectoris; E11.9 Type 2 diabetes mellitus without complications; D50.9 Iron deficiency anemia, unspecified; D63.8 Anemia in other chronic diseases classified elsewhere; F41.1 Generalized anxiety disorder; F33.9 Major depressive disorder, recurrent, unspecified; F09 Unspecified mental disorder due to known physiological condition; H40.9 Unspecified glaucoma; K21.9 Gastro-esophageal reflux disease without esophagitis; Z74.01 Bed confinement status; I49.1 Atrial premature depolarization; Z91.19 Patient's noncompliance with other medical treatment and regimen; I25.2 Old myocardial infarction; Z79.4 Long term (current) use of insulin; Z95.5 Presence of coronary angioplasty implant and graft

== ENCOUNTER 2018-06-29 07:25 | Emergency (ER) | payer MEDICARE, MEDICAID ==
[2018-06-29 07:44] VITALS: RESP 16; TEMP 98.3; O2SAT 100
[2018-06-29 07:47] VITALS: BMI 32.2
--- NOTE | 2018-06-29 08:02 | ED PDOC ---
Arrival/HPI - General Time Seen by Provider: 06/29/18 07:39 Historian: Patient, Family - History of Present Illness Narrative History of Present Illness (Text): 06/29/18 07:59 77 year old female, whose past medical history include NSTEMI, COPD, CHF, respi ratory failure recently extubated on 02/06/2018, hypertension, diabetes, hyperlipidemia, sacral decubitus, schizophrenia, and dementia, who presents to the ED brought in by EMS and accompanied by daughter from [facility] for evaluation of mass to right lower extremity today. Daughter states the mass has been intermittently increasing and decreasing in elevation prompting her to present to the ED for evaluation. Patient denies any associated pain to the area. Patient informs banging her right lower leg with the bed rail one month ago but denies any recent trauma or injury. Patient denies difficulty ambulation secondary to mass or any other associated somatic complaints. Patient denies any fevers, chills, headache, dizziness, chest pain, shortness of breath, dyspnea on exertion, cough, abdominal pain, nausea, vomiting, diarrhea, back pain, neck pain, or any other complaints. Time/Duration: 1 week Symptom Onset: Gradual Symptom Course: Unchanged Activities at Onset: Light Context: Home Past Medical History - Provider Review Nursing Documentation Reviewed: Yes - Infectious Disease Hx of Infectious Diseases: None - Cardiac Hx Cardiac Disorders: Yes (NSTEMI) Hx Congestive Heart Failure: Yes Hx Hypertension: Yes - Pulmonary Hx Chronic Obstructive Pulmonary Disease (COPD): Yes - Neurological Hx Dementia: Yes - HEENT Hx HEENT Disorder: No - Renal Hx Renal Disorder: No - Endocrine/Metabolic Hx Diabetes Mellitus Type 2: Yes - Hematological/Oncological Hx Anemia: Yes - Integumentary Hx Dermatological Disorder: No - Musculoskeletal/Rheumatological Other/Comment: Sacral pressure ulcer - Gastrointestinal Hx Gastrointestinal Disorders: No - Genitourinary/Gynecological Hx Genitourinary Disorders: No - Psychiatric Hx Schizophrenia: Yes Hx Substance Use: No - Anesthesia Hx Anesthesia: No - Suicidal Assessment Feels Threatened In Home Enviroment: No Family/Social History - Physician Review Nursing Documentation Reviewed: Yes Family/Social History: No Known Family HX Smoking Status: Never Smoked Hx Alcohol Use: No Hx Substance Use: No Allergies/Home Meds Allergies/Adverse Reactions: Allergies No Known Allergies Allergy (Verified 03/02/18 05:53) Home Medications: Home Meds Medication Instructions Recorded Confirmed Albuterol/Ipratropium [Duoneb 3 3 ml IH Q6H PRN 09/16/13 03/02/18 MG/3 Ml-0.5 MG/3 Ml 3 Ml] Insulin Detemir [Levemir] 35 units SC ACBD 09/16/13 03/02/18 Magnesium Hydroxide [Milk Of 30 ml PO HS 09/16/13 03/02/18 Magnesia] Simethicone [Mylicon Chew Tab] 80 mg PO BID 09/16/13 03/02/18 Tylenol 650 mg PO Q4H PRN 09/16/13 03/02/18 Aspirin [Ecotrin] 81 mg PO DAILY 02/23/18 03/02/18 Clopidogrel [Plavix] 75 mg PO DAILY 02/23/18 03/02/18 Ferrous Gluconate 324 mg PO TID 02/23/18 03/02/18 Lisinopril [Zestril] 20 mg PO BID 02/23/18 03/02/18 Arformoterol [Brovana] 15 mcg IH Q12 03/02/18 03/02/18 Brimonidine Tartrate [Alphagan P 1 drop OU DAILY 03/02/18 03/02/18 0.1 % Ophth] Budesonide [Pulmicort Respules] 0.5 mg IH BID 03/02/18 03/02/18 Docusate [Colace] 100 mg PO HS 03/02/18 03/02/18 Famotidine [Pepcid] 40 mg PO DAILY 03/02/18 03/02/18 Insulin Human Regular-MED [HumuLIN 2 units SC ACHS 03/02/18 03/02/18 R MED] Latanoprost/Pf [Latanoprost 0.005% 1 drop OU HS 03/02/18 03/02/18 Eye Drop] Metoprolol Tartrate [Lopressor] 100 mg PO BID 03/02/18 03/02/18 Nitroglycerin 2% [Nitro-Bid 2% 1 ea TOP Q4 PRN 03/02/18 03/02/18 Oint] Timolol 0.5% Ophth [Timoptic 0.5% 1 drop OU BID 03/02/18 03/02/18 Ophth Soln] Review of Systems - Physician Review All systems were reviewed & negative as marked: Yes - Review of Systems Constitutional: absent: Fevers Respiratory: absent: SOB, Cough Cardiovascular: absent: Chest Pain Gastrointestinal: absent: Abdominal Pain, Diarrhea, Nausea, Vomiting Genitourinary Female: absent: Dysuria, Urine Output Changes Musculoskeletal: absent: Back Pain, Neck Pain Skin: Other (Skin mass to right lower extremity). absent: Rash Neurological: absent: Headache, Dizziness Physical Exam - Physical Exam Narrative Physical Exam (Text): 06/29/18 08:04 Gen: VS reviewed, alert, well developed, well nourished, nontoxic, mild dist ress. Neck: no JVD, supple, no adenopathy. Ext: no edema. Focal mildly tender soft tissue mass 1 cm to right anterior medial tibia, with no surrounding cellulitic skin changes, no fluctuance, not freely movable Skin: good color, no rash, no cyanosis. Psych: responds appropriately to questions, normal affect. Neuro: oriented x 3, CN2-12 intact grossly, motor intact, sensation intact. Vital Signs Reviewed: Yes Vital Signs Temp Pulse Resp BP Pulse Ox 06/29/18 07:42 98.3 F 83 16 152/84 H 100 Temperature: Afebrile Blood Pressure: Normal Pulse: Regular Respiratory Rate: Normal Appearance: Positive for: Well-Appearing, Non-Toxic, Comfortable Pain Distress: None Mental Status: Positive for: Alert and Oriented X 3 Medical Decision Making ED Course and Treatment: 06/29/18 08:06 Impression: 77 year old female presents to the ED for evaluation of mass to right lower extremity. Plan: -- X-ray of right tibia -- Reassess and disposition Prior Visits: Notes and results from previous visits were reviewed. Progress Notes: 06/29/18 14:02 patient seen by surgical team, patient can be discharged home with outpatient follow up. - RAD Interpretation Narrative RAD Interpretations (Text): 06/29/18 10:23 X-ray of Tibia/fibula reviewed by radiologist, shows: FINDINGS: BONES: No fracture or destructive lesion. JOINT SPACES: Unremarkable. OTHER FINDINGS: None. IMPRESSION: Unremarkable radiographs of the right tibia and fibula. 06/29/18 12:47 US of Soft tissue reviewed by radiologist, shows: FINDINGS: At the site of clinically palpable lump in the right leg, there is a 1.7 x 0.7 x 1.1 cm well-circumscribed ovoid hypoechoic nodule with increased central echogenicity. The nodule has smooth margins and no significant increased vascul arity on color flow imaging. IMPRESSION: 1.7 x 0.7 x 1.1 cm solid ovoid nodule without increased vascularity at the site of clinically palpable lump in the right leg. The differential considerations include benign and malignant neoplasms including nerve sheath tumors, lipoma, lymph node amongst others. An MRI of the leg without and with intravenous contrast would be helpful for further characterization. Radiology Orders: 06/29/18 07:58 TIBIA FIBULA RIGHT [RAD] Stat Superintendent [employer]: Radiologist - Scribe Statement The provider has reviewed the documentation as recorded by the Scribe Richard Garcia. All medical record entries made by the Scribe were at my direction and personally dictated by me. I have reviewed the chart and agree that the record accurately reflects my personal performance of the history, physical exam, medical decision making, and the department course for this patient. I have also personally directed, reviewed, and agree with the discharge instructions and disposition. Disposition/Present on Arrival - Present on Arrival Any Indicators Present on Arrival: No History of DVT/PE: No History of Uncontrolled Diabetes: No Urinary Catheter: No History Surgical Site Infection Following: None - Disposition Have Diagnosis and Disposition been Completed?: Yes Diagnosis: Soft tissue mass Disposition: HOME/ ROUTINE Disposition Time: 14:02 Patient Plan: Discharge Patient Problems: Current Active Problems Problem Status Onset Soft tissue mass Acute Condition: STABLE Additional Instructions: follow up with the surgeon for further evaluation and management of the soft tissue mass. call today to make an appointment. Referrals: Mikayla Rodriguez MD [Primary Care Provider] - Follow up with primary Skip Puentes MD [Staff Provider] - Follow up with primary
--- NOTE | 2018-06-29 10:13 | RAD ---
Date of service: 06/29/2018 PROCEDURE: Radiographs of the right tibia and fibula. HISTORY: focal lump on medial tibia COMPARISON: None available TECHNIQUE: Frontal and lateral views obtained. FINDINGS: BONES: No fracture or destructive lesion. JOINT SPACES: Unremarkable. OTHER FINDINGS: None. IMPRESSION: Unremarkable radiographs of the right tibia and fibula.
--- NOTE | 2018-06-29 12:00 | US ---
Date of service: 06/29/2018 PROCEDURE: Limited ultrasound of the right lower extremity HISTORY: right lower leg mass COMPARISON: Plain radiographs performed the same day. TECHNIQUE: Targeted high-resolution ultrasound of the right leg was performed at the site of clinically palpable lump. FINDINGS: At the site of clinically palpable lump in the right leg, there is a 1.7 x 0.7 x 1.1 cm well-circumscribed ovoid hypoechoic nodule with increased central echogenicity. The nodule has smooth margins and no significant increased vascularity on color flow imaging. IMPRESSION: 1.7 x 0.7 x 1.1 cm solid ovoid nodule without increased vascularity at the site of clinically palpable lump in the right leg. The differential considerations include benign and malignant neoplasms including nerve sheath tumors, lipoma, lymph node amongst others. An MRI of the leg without and with intravenous contrast would be helpful for further characterization.
--- NOTE | 2018-06-29 13:35 | CON ---
DATE: 06/29/2018 EMERGENCY ROOM EVALUATION HISTORY OF PRESENT ILLNESS: This 77-year-old female was examined in the [facility] in bed #1 of the [facility] ER on the morning of , 06/29/2018. This case was reviewed at bedside with the patient; her daughter, Randy; and emergency room physician, Martin Severino, medical doctor. The patient is a 77-year-old female, who resides at the [facility] on a chronic basis. PAST MEDICAL HISTORY: She has a significant past medical history that includes systolic congestive heart failure and chronic obstructive pulmonary disease. The patient has multiple comorbidities including glaucoma, anxiety neurosis, organic brain syndrome with agitation, atherosclerotic heart disease, iron-deficiency anemia, deconditioning and wheelchair status, insulin-dependent diabetes mellitus, anxiety, depression, hypertension, peptic ulcer disease with gastroesophageal reflux disease, stable atherosclerotic heart disease status post stents on chronic Plavix with history of psychosis and degenerative arthritis. According to the daughter, she noted a new bump lump on her right cleaning over the past week. She is unaware of any trauma and is concerned and brought the patient to this emergency room for further evaluation of the above. MEDICATIONS: On further discussion with the daughter, the patient takes multiple medications including glaucoma eyedrops from the [facility] including Alphagan, she takes Ativan, Ecotrin, ferrous gluconate, subcu heparin, Humulin R insulin, Lasix, Levemir, Lexapro, Lopressor, Norvasc, Pepcid, Plavix, potassium, Risperdal, and p.r.n. Tylenol and oral Zestril. ALLERGIES: SHE HAS NO KNOWN ALLERGIES TO MEDICATION. SOCIAL HISTORY: She is a current nondrinker, nonsmoker, non IV drug misuser. REVIEW OF SYSTEMS: CONSTITUTIONAL REVIEW: There were no reports of fever or chills. HEAD: No headache or seizures. EYES: No change in visual acuity. EARS: No hearing loss. THROAT: No swallowing difficulty. NECK: No stiffness. CARDIAC: As per HPI. PULMONARY: As per HPI. GI: No hematemesis. No melena. : No dysuria. SKIN: As per HPI. VASCULAR: No claudication. PSYCHOLOGICAL: Chronic organic brain syndrome and agitation syndrome. NEUROLOGICAL: No knowledge of stroke. FAMILY HISTORY: Family history is noncontributory. PHYSICAL EXAMINATION: VITAL SIGNS: In the emergency room this morning, she had a temperature of 98.3, respirations 16, pulse 76, and blood pressure 145/62 with a pulse ox of 100% on 2 liters nasal O2. HEAD: Normocephalic, atraumatic. EYES: No icterus. EARS: Clear. THROAT: Noninjected. NECK: Supple. HEART: S1, S2. LUNGS: Clear. ABDOMEN: Soft. EXTREMITIES: With a small, smooth pea-sized circular bump on her pretibial cleaning surface of the right leg. There was no localized erythema, warmth, or swelling noted. EXTREMITIES: No edema. SKIN: Without rash. NEUROLOGICAL: Unchanged. PSYCHOLOGICAL: Non-agitated at present. I did review her right tibiofibular x-rays, which showed no evidence of fracture or destructive lesion. As discussed with daughter, Randy at bedside and Dr. Martin Severino, the patient will now have an ultrasound of the soft tissue area to rule out hematoma or cystic-like lesion of her right lower leg mass and I have also asked Dr. Martin Severino to review these findings with Dr. Skip Puentes from Surgery to see if he feels there is any need for additional diagnostic xrays, studies or excisional biopsy. Greater than 60 minutes was spent in the care management, review of labs, records, and discussion of this with Dr. Martin Severino and daughter, Randy at bedside. All questions were answered. Mikayla Rodriguez MD [facility]ALE[facility]
--- NOTE | 2018-06-29 14:49 | CP.PCM.CON ---
History of Present Illness - History of Present Illness History of Present Illness: Surgery consult note, Dr Puentes Reason for consult: right lower limb mass 77 y/o female with PMH of HTN, DM, HLD, CAD, COPD, CHF, respiratory failure schizophrenia, and dementia presents to the ED from [facility] with a mass located at anterior right leg over mid-tibia for less than 2 weeks. She denied any trauma to the area, pain, fever, chills, drainage, motor or sensory deficits associated with the mass. She uses wheel-chair. She denied CP, SOB, palpitations, leg edema, headache, dizziness ROS reviewed with positives as above PMH: NSTEMI, COPD, CHF, HTN, DM, HLD, [place], sacral decubitus ulcer, schizophrenia and dementia PSH: breast lumpectomy Meds: per EMR All: NKDA FH: Mother had heart disease SH: tobacco 1ppd for 25y quit 10 years ago, denies alcohol, denies drugs Past Patient History - Infectious Disease Hx of Infectious Diseases: None - Past Social History Smoking Status: Never Smoked - CARDIAC Hx Cardiac Disorders: Yes (NSTEMI) Hx Congestive Heart Failure: Yes Hx Hypertension: Yes - PULMONARY Hx Chronic Obstructive Pulmonary Disease (COPD): Yes - NEUROLOGICAL Hx Dementia: Yes - HEENT Hx HEENT Problems: No - RENAL Hx Chronic Kidney Disease: No - ENDOCRINE/METABOLIC Hx Diabetes Mellitus Type 2: Yes - HEMATOLOGICAL/ONCOLOGICAL Hx Anemia: Yes - INTEGUMENTARY Hx Dermatological Problems: No - MUSCULOSKELETAL/RHEUMATOLOGICAL Other/Comment: Sacral pressure ulcer - GASTROINTESTINAL Hx Gastrointestinal Disorders: No - GENITOURINARY/GYNECOLOGICAL Hx Genitourinary Disorders: No - PSYCHIATRIC Hx Schizophrenia: Yes Hx Substance Use: No - SURGICAL HISTORY Hx Surgeries: No - ANESTHESIA Hx Anesthesia: No Meds Allergies/Adverse Reactions: Allergies Allergy/AdvReac Type Severity Reaction Status Date / Time No Known Allergies Allergy Verified 03/02/18 05:53 Physical Exam - Constitutional Appears: Well, No Acute Distress - Head Exam Head Exam: ATRAUMATIC, NORMAL INSPECTION, NORMOCEPHALIC - Eye Exam Eye Exam: EOMI, Normal appearance, PERRL Pupil Exam: NORMAL ACCOMODATION, PERRL - ENT Exam ENT Exam: Mucous Membranes Moist, Normal Exam - Respiratory Exam Respiratory Exam: Clear to Auscultation Bilateral, NORMAL BREATHING PATTERN - Cardiovascular Exam Cardiovascular Exam: REGULAR RHYTHM, +S1, +S2 - Extremities Exam Extremities exam: Positive for: full ROM, pedal pulses present. Negative for: joint swelling, pedal edema - Back Exam Back exam: NORMAL INSPECTION Additional comments: healed decubitus ulcers - Neurological Exam Neurological exam: Altered - Skin Skin Exam: Dry, Intact, Normal Color, Warm Additional comments: subcutaneous solid mass against right mid-tibia. mobile, no erythema, no open wound/drainage, non tender, no edema. b/l lower legs skin changes Results - Vital Signs Recent Vital Signs: Last Vital Signs Temp 98.3 F 06/29/18 07:42 Pulse 76 06/29/18 11:04 Resp 16 06/29/18 11:04 BP 145/62 06/29/18 11:04 Pulse Ox 100 06/29/18 11:04 Assessment & Plan - Assessment and Plan (Free Text) Assessment: 77 y/o female with PMH of HTN, DM, HLD, CAD, COPD, CHF, respiratory failure schizophrenia, and dementia presents to the ED from [facility] with a mass located at anterior right leg over mid-tibia Plan: -right leg soft tissue mass 1.7x1.1 cm, mobile, non tender, no open wound, no drainage, no signs of infection -U/S and X-ray reviewed with no acute pathology -outpatient f/u -no surgical intervention at this time -further recs per attending surgeon Dr Dhaval Ballard, DO
[2018-06-29 15:21] VITALS: BP 141/63; PULSE 70
== END 2018-06-29 15:20 | disposition home or self-care (01) ==
LOC: ED 07:25
DX: R22.41 Localized swelling, mass and lump, right lower limb (principal); E11.9 Type 2 diabetes mellitus without complications; E78.5 Hyperlipidemia, unspecified; I25.2 Old myocardial infarction; I10 Essential (primary) hypertension; F20.9 Schizophrenia, unspecified; I50.9 Heart failure, unspecified; Z99.3 Dependence on wheelchair; Z79.4 Long term (current) use of insulin; I25.10 Atherosclerotic heart disease of native coronary artery without angina pectoris; J44.9 Chronic obstructive pulmonary disease, unspecified

== ENCOUNTER 2018-07-30 08:51 | Inpatient (IN) | payer MEDICARE, MEDICAID ==
--- NOTE | 2018-07-30 09:34 | ED PDOC ---
Arrival/HPI - General Chief Complaint: Altered Mental Status Time Seen by Provider: 07/30/18 09:01 Historian: Patient, Family, Residential - History of Present Illness Narrative History of Present Illness (Text): 07/30/18 09:37 78 year old female, with past medical history of Alzheimer's, NSTEMI, COPD, CHF, respiratory failure extubated on 02/06/2018, hypertension, diabetes, hyperlipidemia, sacral decubitus, schizophrenia, and dementia, presents to emergency department brought from [facility]. Daughter states she visited last night, and patient was fine. [facility] noticed shortness of breath this morning and daughter notes patient was more sleepy and difficult to arouse. She states that patient is usually awake and alert and oriented to time, which she is not currently. Daughter also reports patient is supposed to be on bipap, but that she refuses to use it and has only used it 2 or 3 times since March. Patient states she just "wants some food." HPI limited due to drowsiness but patient denies any other somatic complaints. Time/Duration: Other (morning ) Symptom Onset: Gradual Symptom Course: Unchanged Activities at Onset: Light Context: Home Past Medical History - Provider Review Nursing Documentation Reviewed: Yes - Infectious Disease Hx of Infectious Diseases: None - Cardiac Hx Cardiac Disorders: Yes (NSTEMI) Hx Congestive Heart Failure: Yes Hx Hypertension: Yes - Pulmonary Hx Chronic Obstructive Pulmonary Disease (COPD): Yes - Neurological Hx Dementia: Yes - HEENT Hx HEENT Disorder: No - Renal Hx Renal Disorder: No - Endocrine/Metabolic Hx Diabetes Mellitus Type 2: Yes - Hematological/Oncological Hx Anemia: Yes - Integumentary Hx Dermatological Disorder: No - Musculoskeletal/Rheumatological Other/Comment: Sacral pressure ulcer - Gastrointestinal Hx Gastrointestinal Disorders: No - Genitourinary/Gynecological Hx Genitourinary Disorders: No - Psychiatric Hx Schizophrenia: Yes Hx Substance Use: No - Anesthesia Hx Anesthesia: No - Suicidal Assessment Feels Threatened In Home Enviroment: No Family/Social History - Physician Review Nursing Documentation Reviewed: Yes Family/Social History: Unknown Family HX Smoking Status: Never Smoked Hx Alcohol Use: No Hx Substance Use: No Allergies/Home Meds Allergies/Adverse Reactions: Allergies No Known Allergies Allergy (Verified 07/30/18 08:57) Home Medications: Home Meds Medication Instructions Recorded Confirmed Albuterol/Ipratropium [Duoneb 3 3 ml IH Q6H PRN 09/16/13 07/30/18 MG/3 Ml-0.5 MG/3 Ml 3 Ml] Insulin Detemir [Levemir] 35 units SC ACBD 09/16/13 07/30/18 Magnesium Hydroxide [Milk Of 30 ml PO HS 09/16/13 07/30/18 Magnesia] Aspirin [Ecotrin] 81 mg PO DAILY 02/23/18 07/30/18 Clopidogrel [Plavix] 75 mg PO DAILY 02/23/18 07/30/18 Ferrous Gluconate 324 mg PO TID 02/23/18 07/30/18 Lisinopril [Zestril] 20 mg PO BID 02/23/18 07/30/18 Famotidine [Pepcid] 40 mg PO DAILY 03/02/18 07/30/18 Insulin Human Regular-MED [HumuLIN 2 units SC ACHS 03/02/18 07/30/18 R MED] Latanoprost/Pf [Latanoprost 0.005% 1 drop OU HS 03/02/18 07/30/18 Eye Drop] Metoprolol Tartrate [Lopressor] 100 mg PO BID 03/02/18 07/30/18 Timolol 0.5% Ophth [Timoptic 0.5% 1 drop OU BID 03/02/18 07/30/18 Ophth Soln] Acetaminophen [Tylenol] 650 mg PO Q6 PRN 07/30/18 07/30/18 Brimonidine 0.15% [Alphagan P 1 drop BOTHEYES DAILY 07/30/18 07/30/18 0.15% Opht] Potassium Chloride [K-Dur 20 mEq 20 meq PO DAILY 07/30/18 07/30/18 ER Tab] Risperidone [Risperdal] 0.5 mg PO HS 07/30/18 07/30/18 amLODIPine [Norvasc] 10 mg PO DAILY 07/30/18 07/30/18 Review of Systems - Physician Review All systems were reviewed & negative as marked: Yes - Review of Systems Constitutional: absent: Fevers Respiratory: SOB Cardiovascular: absent: Chest Pain Gastrointestinal: absent: Abdominal Pain, Diarrhea, Nausea, Vomiting Genitourinary Female: absent: Urine Output Changes Musculoskeletal: absent: Back Pain, Neck Pain Skin: absent: Rash Neurological: absent: Headache, Dizziness Physical Exam Vital Signs Reviewed: Yes Vital Signs Temp Pulse Resp BP Pulse Ox 07/30/18 09:11 97.8 F 72 18 121/62 100 Temperature: Afebrile Blood Pressure: Normal Pulse: Regular Respiratory Rate: Normal Appearance: Positive for: Well-Appearing, Non-Toxic, Comfortable Pain Distress: None Mental Status: Positive for: other (alert and oriented x 2, drowsy but arousable to voice) Finger Stick Blood Glucose: 127 - Systems Exam Head: Present: Atraumatic, Normocephalic Pupils: Present: Other (cataract in right eye, exophthalmos ) Extroacular Muscles: Present: EOMI Conjunctiva: Present: Normal Mouth: Present: Moist Mucous Membranes Neck: Present: Normal Range of Motion Respiratory/Chest: Present: Other (coarse breath sounds bilaterally ). No: Respiratory Distress, Accessory Muscle Use Cardiovascular: Present: Regular Rate and Rhythm, Normal S1, S2. No: Murmurs Abdomen: Present: Other (soft). No: Tenderness, Distention, Peritoneal Signs Back: Present: Normal Inspection Upper Extremity: Present: Normal Inspection. No: Cyanosis, Edema Lower Extremity: Present: Normal Inspection. No: Edema Neurological: Present: GCS=15, CN II-XII Intact, Speech Normal Skin: Present: Warm, Dry, Normal Color. No: Rashes Psychiatric: Present: Alert, Oriented x 3, Normal Insight, Normal Concentration Medical Decision Making ED Course and Treatment: 07/30/18 09:53 Impression: 78 year old female presents to emergency department brought from [facility] for shortness of breath this morning. Plan: -- Labs -- Chest X-ray -- Reassess and disposition Prior Visits: Notes and results from previous visits were reviewed. Progress Notes: 07/30/18 08:05 EKG: Ordered, reviewed, and independently interpreted the EKG. Rate : 75 BPM Rhythm : NSR Interpretation : Normal axis, normal intervals, occasional pvc, no St elevations 07/30/18 09:58 ABG results noted, will start BiPAP. pH 7.27, pCO2 92. patient noncompliant with nighttime CPAP. 07/30/18 10:10 Chest X-ray, reviewed by radiologist: IMPRESSION: Stable exam including retrocardiac opacity and a probable small left pleural effusion. No interval acute cardiopulmonary changes appreciated. 03/10/19 10:26 Hyperkalemia on labs noted. Renal function normal. No EKG changes. Will give 40mg lasix IVP at this time. Case discussed with Dr. Rodriguez, accepts patient to her service for admission. Agrees with plan for BiPAP and diuresis. - RAD Interpretation Radiology Orders: 07/30/18 09:15 CHEST PORTABLE [RAD] Stat - Scribe Statement The provider has reviewed the documentation as recorded by the Scribe Lupis Pulido All medical record entries made by the Scribe were at my direction and personally dictated by me. I have reviewed the chart and agree that the record accurately reflects my personal performance of the history, physical exam, medical decision making, and the department course for this patient. I have also personally directed, reviewed, and agree with the discharge instructions and disposition. Disposition/Present on Arrival - Present on Arrival Any Indicators Present on Arrival: No History of DVT/PE: No History of Uncontrolled Diabetes: No Urinary Catheter: No History of Decub. Ulcer: No History Surgical Site Infection Following: None - Disposition Have Diagnosis and Disposition been Completed?: Yes Diagnosis: CHF (congestive heart failure), Hypercapnia, COPD exacerbation, Hyperkalemia Disposition: HOSPITALIZED Disposition Time: 10:26 Condition: FAIR
[2018-07-30 09:53] LABS: ARTERIAL BLOOD GAS HCO3 42.2 mmol/L (21-28); ARTERIAL BLOOD GAS O2 SAT 97.9 % (95-98); ARTERIAL BLOOD GAS PCO2 92 mm/Hg (35-45); ARTERIAL BLOOD GAS PH 7.27 (7.35-7.45)
--- NOTE | 2018-07-30 09:54 | RAD ---
Date of service: 07/30/2018 HISTORY: dyspnea COMPARISON: Portable chest 03/08/2018 11:38 a.m.. FINDINGS: LUNGS: There is poor definition of the retrocardiac left hemidiaphragm suggestive of probable atelectasis though consolidation is not excluded. No interval consolidation right hemithorax. PLEURA: Trace left pleural effusion not excluded, on a chronic basis. No right pleural effusion. No pneumothorax bilaterally. CARDIOVASCULAR: Calcific atherosclerotic changes are seen related to the thoracic aorta. Stable cardiomegaly. No pulmonary vascular congestion. OSSEOUS STRUCTURES: No significant abnormalities. VISUALIZED UPPER ABDOMEN: Normal. OTHER FINDINGS: None. IMPRESSION: Stable exam including retrocardiac opacity and a probable small left pleural effusion. No interval acute cardiopulmonary changes appreciated.
[2018-07-30 09:58] LABS: EOS # 0.1 (0.0-0.7); EOS % 0.7 % (1.5-5.0); HEMOGLOBIN 10.7 g/dL (12.0-16.0); LYMPH % 11.4 % (22.0-35.0); MEAN CELL VOLUME 91.5 fl (80.0-105.0); MEAN CORPUSCULAR HEMOGLOBIN 29.3 pg (25.0-35.0); MEAN PLATELET VOLUME 10.7 fl (7.0-11.0); MONO # 0.6 (0.1-0.6); MONO % 6.7 % (1.0-6.0); RBC 3.65 10^6/uL (3.5-6.1); RED CELL DISTRIBUTION WIDTH 12.7 % (11.5-14.5); WHITE BLOOD COUNT 8.5 10^3/uL (4.5-11.0)
[2018-07-30 10:20] LABS: B-TYPE NATRIURETIC PEPTIDE 1370 pg/mL (0-450); TROPONIN I < 0.01 ng/mL
[2018-07-30 10:21] LABS: BLOOD UREA NITROGEN 32 mg/dL (7-21); CALCIUM 9.3 mg/dL (8.4-10.5); GFR NON-AFRICAN AMERICAN 53
[2018-07-30 11:54] VITALS: BMI 25.4
[2018-07-30] MEDS ORDERED: Nitroglycerin 2% Ointment Foilpak UD TOP PRN (13:27)
--- NOTE | 2018-07-30 14:06 | HP ---
DATE OF EXAM: 07/30/2018 HISTORY OF PRESENT ILLNESS: This 78-year-old female was examined at her bedside on the afternoon of Monday, July 30, 2018 in the presence of her nurse, Roberta Hernandez, registered nurse. Layla is a 78-year-old female who resides at the [facility] in [place], [place]. Earlier this morning, she was noted by the nursing staff to be unresponsive with respiratory distress and was brought to the [facility] for further evaluation of the above. Here, she was noted to be in CO2 retention with a compensated metabolic alkalosis secondary to her chronic noncompliance with CPAP administration. Of this issue her daughter, Randy is clearly aware. PAST MEDICAL HISTORY: Significant for Alzheimer's dementia with agitation syndrome, history of atherosclerotic heart disease, chronic obstructive pulmonary disease, systolic congestive heart failure, hypertension, insulin-dependent diabetes mellitus, hyperlipidemia, history of sacral decubiti, paranoid schizophrenia, dementia, degenerative arthritis and anemia of chronic disease. The patient had been intubated several months ago because of respiratory failure and this is an ongoing problem with the patient who is noncompliant with CPAP and nasal O2. The patient has a history of iron-deficiency anemia with the daughter stating that a full workup at [facility] regarding this issue was unremarkable on colonoscopy and an endoscopy. The patient has not had any fever, chills, chest pain, shortness of breath or cough in the recent past. ALLERGIES: THE PATIENT HAS NO KNOWN ALLERGIES TO MEDICATION. SOCIAL HISTORY: She is a current nondrinker, nonsmoker, non IV drug misuser. OUTPATIENT MEDICATIONS: Included Norvasc, glaucoma eyedrops, Risperdal, K-Dur, Lopressor, Zestril, insulin, ferrous gluconate, Pepcid, Plavix, Ecotrin and duonebulizers. FAMILY HISTORY: Noncontributory. REVIEW OF SYSTEMS: CONSTITUTIONAL: No fever, no chills. HEAD: No recent head trauma or seizures. EYES: Chronic glaucoma. EARS: No hearing loss. THROAT: No swallowing difficulty. NECK: No stiffness. CARDIAC: Review chronic hypertension, stable atherosclerotic heart disease, stable systolic congestive heart failure. PULMONARY: No hemoptysis. GI: No hematemesis. No melena. : No dysuria. SKIN: No rash. VASCULAR: No reports of claudication. PSYCHOLOGICAL: Chronic agitation syndrome. NEUROLOGICAL: Chronic Alzheimer's. She is nonambulatory. ENDOCRINE: She has chronic insulin-dependent diabetes mellitus. PHYSICAL EXAMINATION: GENERAL: Showed the patient was in a normal sinus rhythm on the panel monitor. She was wearing CPAP at the present time and responsive to tactile stimulus. VITAL SIGNS: Temperature 97.2, respirations 20, pulse 68, blood pressure 128/57, pulse ox 98% on BiPap. HEAD: Normocephalic, atraumatic. EYES: No icterus. EARS: Clear. THROAT: Noninjected. NECK: Supple. HEART: Regular S1 and S2. LUNGS: With occasional rhonchi that cleared with coughing. ABDOMEN: Soft. EXTREMITIES: No edema. SKIN: Without rash. NEUROLOGICAL: Responsive to tactile stimulus. VASCULAR: Legs warm to touch. PSYCHOLOGICAL: Cannot be assessed at present. LABORATORY DATA: White count 8500, hemoglobin 10.7, hematocrit 33.4, MCV 91.5, platelets 135,000. Blood gas pH 7.27, pCO2 of 92 pO2 of 79, bicarb 42 on FIO2 of 28%. Sodium 138, K 5.8, chloride 94, bicarb 40, BUN 32, creatinine 1.0, random blood sugar 114, calcium 9.3, magnesium 2.3. CPK 30. Troponin less than 0.01. BNP 1370. Arterial potassium 5.1. Chest x-ray was reviewed, it showed a stable exam with a probable small left pleural effusion, no interval acute cardiopulmonary changes were appreciated. EKG reportedly showed normal sinus rhythm with nonspecific ST-T wave changes. IMPRESSION: This is a 78-year-old female with mental status changes secondary to respiratory acidosis and CO2 retention in a patient with noncompliance with CPAP on a chronic basis and comorbidities of stable atherosclerotic heart disease, stable systolic congestive heart failure, chronic hypertension, glaucoma, Alzheimer's dementia, organic brain syndrome with agitation syndrome, paranoid schizophrenia, insulin-dependent diabetes mellitus, anemia of chronic disease, iron-deficiency anemia, peptic ulcer disease with gastroesophageal reflux disease and degenerative arthritis. PLAN: My plans as discussed with nurse, Roberta Hernandez and emergency room physician, the emergency antonio medical doctor will be to admit this patient to the cardiac antonio, I will outline medications including Norvasc, glaucoma eyedrops, Risperdal, K-Dur, Lasix, Lopressor, Zestril, insulins, ferrous gluconate, Pepcid, Plavix, Ecotrin and Xopenex inhalational therapy. She will remain n.p.o. now because she is unresponsive and I have asked the speech pathologist, to reevaluate this patient in the morning regarding a swallowing evaluation. The patient will be placed on fall precautions, CPAP, nasal O2, pulmonary toiletry and neuro checks every shift and based on clinical progress, additional diagnostic workup will be entertained. Greater than 75 minutes was spent in the care management, review of labs, orders, x-rays and discussion of this patient with emergency room physician, nursing and family. All questions were answered. Mikayla Rodriguez MD MTDD
[2018-07-30] MEDS: Insulin Reg-LOW-Coverage SC SCH ×2 (17:08→22:05)
[2018-07-30] MEDS: Latanoprost 2.5 ml Opht Soln OU SCH (22:24)
--- NOTE | 2018-07-30 22:42 | CARD ---
APPROVED REPORT Date of service: 07/30/2018 EKG Measurement Heart [id number] <Conclusion> Sinus rhythm Baseline artifact Otherwise normal ECG
[2018-07-31 07:14] LABS: HEMOGLOBIN 10.9 g/dL (12.0-16.0); MEAN CELL VOLUME 91.1 fl (80.0-105.0); MEAN CORPUSCULAR HEMOGLOBIN 28.7 pg (25.0-35.0); MEAN CORPUSCULAR HGB CONC 31.5 g/dl (31.0-37.0); MEAN PLATELET VOLUME 10.8 fl (7.0-11.0); RBC 3.8 10^6/uL (3.5-6.1); RED CELL DISTRIBUTION WIDTH 13.1 % (11.5-14.5); WHITE BLOOD COUNT 4.1 10^3/uL (4.5-11.0)
[2018-07-31] MEDS: Insulin Reg-LOW-Coverage SC SCH ×4 (07:33→22:33)
[2018-07-31 07:50] LABS: BLOOD UREA NITROGEN 32 mg/dL (7-21); CALCIUM 9.6 mg/dL (8.4-10.5); GFR NON-AFRICAN AMERICAN > 60
[2018-07-31] MEDS ORDERED: Potassium Chloride 20 mEq ER Tab PO SCH (08:00)
[2018-07-31] MEDS: Brimonidine 0.15% 50 DROP/5 ML BOTTLE OU SCH (10:07)
--- NOTE | 2018-07-31 13:00 | CP.PCM.PCO ---
Physician Communication Note - Physician Communication Note Physician Communication Note: hypercarpnic respiratory failure responded well to bipap, labs reeval in am
--- NOTE | 2018-07-31 15:52 | PN ---
DATE: 07/31/2018 SUBJECTIVE: This 78-year-old female was examined at her bedside on the morning of 07/31/2018. Present for this interview was nurse practitioner Teresa Stuart registered nurse and this case was reviewed in detail with registered nurse Claire Vizcarra. The patient is out of bed to chair. She is much more alert. She is easily agitated, but asking for food. I did perform a bedside swallowing evaluation with nurse Sade and I have cleared her to resume oral intake of food and fluid. The patient on the bus monitor is in a normal sinus rhythm. She is wearing nasal O2. PHYSICAL EXAMINATION: VITAL SIGNS: Temperature is 97.7, respirations 19, pulse 79 and blood pressure 135/52 with pulse ox of 97% on BiPAP. HEENT: Head: Normocephalic, atraumatic. Eyes: No icterus. Ears: Clear. Throat: Noninjected. NECK: Supple. HEART: S1, S2. LUNGS: Clear. ABDOMEN: Soft. EXTREMITIES: No edema. SKIN: Without rash. NEUROLOGICAL: Alert but confused. VASCULAR: Legs warm to touch. PSYCHOLOGICAL: Chronic confusion, easily agitated. LABORATORY DATA: White count 4100, hemoglobin 10.9, hematocrit 34.6, platelets 140,000. Sodium 142, K 4, chloride 94, bicarb 41, BUN 32, creatinine 0.8, random blood sugar 121, calcium 9.6. IMPRESSION: A 78-year-old female with altered mental status secondary to respiratory acidosis secondary to noncompliance with BiPAP at the [facility]. Also with comorbidities of organic brain syndrome, Alzheimer's dementia, glaucoma, anxiety neurosis, atherosclerotic heart disease stable, anemia of chronic disease, iron-deficiency anemia, insulin-dependent diabetes mellitus, systolic congestive heart failure, chronic hypertension, peptic ulcer disease with gastroesophageal reflux disease, paranoid schizophrenia and degenerative arthritis. PLAN: My plans are to continue glaucoma eyedrops from [facility] as labeled, Ativan p.r.n. agitation, Ecotrin, Fergon, insulin coverage, Lasix IV Lopressor, nitroglycerin to chest wall for accelerated hypertension, Norvasc, Pepcid, Risperdal, Zestril and p.r.n. Zofran. The patient is currently out of bed to chair. She is ordered to have a basic metabolic panel in the a.m. She will have BiPAP, CPAP adjustments in the evening. She will continue on a diabetic diet, fall precautions, neuro checks every shift and is awaiting a formal swallow evaluation. Based on her clinical progress, additional diagnostic workup and testing will be entertained. Greater than 35 minutes was spent in the care and management, adjustment of orders and performance of testing as outlined above. All questions were answered. Mikayla Rodriguez MD MTDD
[2018-07-31] MEDS: Latanoprost 2.5 ml Opht Soln OU SCH (22:34)
[2018-08-01 07:43] LABS: BLOOD UREA NITROGEN 24 mg/dL (7-21); CALCIUM 9.2 mg/dL (8.4-10.5); GFR NON-AFRICAN AMERICAN > 60
[2018-08-01] MEDS: Insulin Reg-LOW-Coverage SC SCH ×4 (09:05→22:21)
[2018-08-01] MEDS: Brimonidine 0.15% 50 DROP/5 ML BOTTLE OU SCH (09:14)
[2018-08-01 09:56] LABS: FREE T4 1.51 ng/dL (0.78-2.19)
[2018-08-01 10:02] LABS: EOS # 0.1 (0.0-0.7); EOS % 3.5 % (1.5-5.0); HEMOGLOBIN 9.8 g/dL (12.0-16.0); LYMPH # 1.2 (1.2-3.4); MEAN CELL VOLUME 89.6 fl (80.0-105.0); MEAN CORPUSCULAR HEMOGLOBIN 29.1 pg (25.0-35.0); MEAN CORPUSCULAR HGB CONC 32.5 g/dl (31.0-37.0); MEAN PLATELET VOLUME 10.8 fl (7.0-11.0); MONO # 0.5 (0.1-0.6); MONO % 12.8 % (1.0-6.0); RBC 3.37 10^6/uL (3.5-6.1); RED CELL DISTRIBUTION WIDTH 12.8 % (11.5-14.5)
[2018-08-01] MEDS ORDERED: Heparin25000 units/250ml 1/2NS 25,000 UNITS/250 ML BAG IV PRN (11:58)
[2018-08-01 13:06] LABS: INR 1.08; PARTIAL THROMBOPLASTIN TIME 29.4 Seconds (26.9-38.3); PROTHROMBIN TIME 12.2 SECONDS (9.4-12.5)
--- NOTE | 2018-08-01 13:25 | CP.PCM.PCO ---
Physician Communication Note - Physician Communication Note Physician Communication Note: new onset afib, heparin initiated
--- NOTE | 2018-08-01 17:12 | CARD ---
APPROVED REPORT Date of service: 08/01/2018 EKG Measurement Heart [id number] <Conclusion> Atrial fibrillation with rapid ventricular response Possible Inferior infarct, age undetermined Abnormal ECG
[2018-08-01] MEDS: Latanoprost 2.5 ml Opht Soln OU SCH (22:28)
[2018-08-02 06:36] LABS: HEMOGLOBIN 10.6 g/dL (12.0-16.0); MEAN CELL VOLUME 91.1 fl (80.0-105.0); MEAN CORPUSCULAR HEMOGLOBIN 28.7 pg (25.0-35.0); MEAN CORPUSCULAR HGB CONC 31.5 g/dl (31.0-37.0); MEAN PLATELET VOLUME 10.4 fl (7.0-11.0); RBC 3.69 10^6/uL (3.5-6.1); RED CELL DISTRIBUTION WIDTH 12.9 % (11.5-14.5); WHITE BLOOD COUNT 3.8 10^3/uL (4.5-11.0)
[2018-08-02 06:40] LABS: INR 1.01; PARTIAL THROMBOPLASTIN TIME 31.8 Seconds (26.9-38.3); PROTHROMBIN TIME 11.4 SECONDS (9.4-12.5)
[2018-08-02 07:16] LABS: BLOOD UREA NITROGEN 28 mg/dL (7-21); CALCIUM 9.5 mg/dL (8.4-10.5); GFR NON-AFRICAN AMERICAN > 60
--- NOTE | 2018-08-02 07:55 | CARD ---
APPROVED REPORT Date of service: 08/01/2018 EKG Measurement Heart [id number] <Conclusion> Sinus rhythm with premature atrial complexes Nonspecific T wave abnormality Abnormal ECG
[2018-08-02] MEDS: Potassium Chloride 20 mEq ER Tab PO SCH (08:29)
[2018-08-02] MEDS: Insulin Reg-LOW-Coverage SC SCH ×4 (08:29→21:19)
[2018-08-02] MEDS: Brimonidine 0.15% 50 DROP/5 ML BOTTLE OU SCH (11:20)
--- NOTE | 2018-08-02 12:21 | PN ---
DATE: 08/02/2018 SUBJECTIVE: This 78-year-old female was examined at her bedside in the presence of nurse, Magali Ferreira, registered nurse. The patient is alert, but chronically confused. This morning, she is in a normal sinus rhythm on the secured entrance monitor. Heparin has been discontinued and insulins are being adjusted. Now that she is eating, she is being replaced on her Levemir and her blood pressure is being monitored as well. PHYSICAL EXAMINATION: VITAL SIGNS: Temperature is 97.7, respirations 22, pulse 71 and blood pressure 119/67 with a pulse ox of 99% on BiPap. HEENT: Head: Normocephalic, atraumatic. Eyes: No icterus. Ears: Clear. Throat: Noninjected. NECK: Supple. HEART: S1, S2 regular. LUNGS: Clear. ABDOMEN: Soft. EXTREMITIES: No edema. SKIN: Without rash. NEUROLOGICAL: Intact. PSYCHOLOGICAL: Alert but confused. VASCULAR: Legs warm to touch. LABORATORY DATA: Sodium 139, K 4.1, chloride 92, bicarb 42, BUN 28, creatinine 0.9, random blood sugar 210, calcium 9.5, magnesium 1.7. White count 3800, hemoglobin 10.6, hematocrit 33.6, platelets 148,000. IMPRESSION: This is a 78-year-old female with multiple medical problems including altered mental status secondary to obstructive sleep apnea and respiratory acidosis for which she refuses to wear bilevel positive airway pressure and comorbidities of chronic glaucoma, anxiety neurosis, paranoid schizophrenia, chronic hypertension, history of anemia of chronic disease, iron-deficiency anemia, insulin-dependent diabetes mellitus, degenerative arthritis. PLAN: The plan at present is to continue Alphagan, Ativan, Cardizem, Ecotrin, Fergon, insulins, K-Dur, Lasix, Lopressor, Norvasc, Pepcid, Risperdal, glaucoma eyedrops, and Zestril. She is ordered to be resumed on her Levemir 35 units a.c. breakfast, dinner. Monitoring of her PTT will be discontinued given her normal sinus rhythm and no further need for IV heparin at present. She is scheduled for her BiPap, diabetic heart-healthy diet, neuro checks and fall precautions and as discussed with nursing, if the patient remains stable, she will be readied for discharge to half-way in the a.m. Greater than 35 minutes was spent in the care management, review of labs, adjustment of orders and outlining of care for this patient today and discussion with her nurse and nurse practitioner, Teresa Stuart. All questions were answered. Mikayla Rodriguez MD
--- NOTE | 2018-08-02 14:34 | PN ---
DATE: 08/01/2018 SUBJECTIVE: This 78-year-old female was examined at her bedside on the morning of 08/01/2018. Present for this interview was nurse practitioner, Teresa Stuart, registered nurse and her cardiac nurse, Laine Cerna, registered nurse. The patient is now in a atrial fibrillation rhythm on the youth [employer] monitor. It was reported that she had a very stormy night. She refused to wear her CPAP and also was agitated. She was recently given a parenteral dose of Ativan. CPAP was replaced and at present, she is in an AFib rhythm on the youth nutritional monitor. There were no reports of fever, chills, chest pain or shortness of breath. I did review an echocardiogram on this patient looking for the date to spare with me. An echocardiogram dated 03/03/2018 that showed left ventricle normal in size, normal left ventricular function, ejection fraction 65% to 70% with left atrium size normal, right atrium size, normal, mild aortic regurgitation, mild mitral regurgitation. At present, the patient is without shortness of breath and no clinical signs of congestive heart failure were evident. PHYSICAL EXAMINATION: Today, VITAL SIGNS: Temperature 97.9, respirations 20, pulse 104 and blood pressure 150/70. HEENT: Head: Normocephalic, atraumatic. Eyes: No icterus. Ears: Clear. Throat: Noninjected. NECK: Supple. HEART: Irregular S1, S2. LUNGS: Clear. ABDOMEN: Soft. EXTREMITIES: No edema. SKIN: Without rash. NEUROLOGICAL: Sedated. VASCULAR: Legs warm to touch. PSYCHOLOGICAL: Cannot be assessed. LABORATORY DATA: White count 4000, hemoglobin 9.8, hematocrit 30.2, platelets 125,000. PT/INR 1.08, PTT 29.4. Sodium 138, K 3.4, chloride 93, bicarb 37, BUN 24, creatinine 0.7, random blood sugar 196 and calcium 9.2. Free T4 is normal at 1.51. TSH is less than 0.02. IMPRESSION: This is a 78-year-old female with acute atrial fibrillation in the setting of history of respiratory acidosis and obstructive sleep apnea for which the patient chronically refuses to wear bilevel positive airway pressure, continuous positive airway pressure and be compliant with pulmonary toiletry. PLAN: At present are to maintain the patient on the cardiac antonio. She is currently wearing her BiPap. She will be ordered to receive Cardizem p.r.n. accelerated pulse rate and also to be started on IV heparin for stroke prevention. She will continue on glaucoma eyedrops from home as labeled, Ativan 0.5 mg IV every 6 hours p.r.n. agitation, Fergon, insulin, K-Dur, Lasix, Lopressor, nitroglycerin to chest wall for accelerated hypertension, Norvasc, Pepcid, Risperdal and Zestril. Based on clinical progress, additional diagnostic workup and testing will be entertained. Greater than 35 minutes was spent in the care management, review of labs, outlining of orders and discussion of this patient including review of her echocardiography with nursing. All questions were answered. Mikayla Rodriguez MD
[2018-08-02] MEDS: Insulin Detemir 100 units/ml Vial (Levemir) SC SCH (19:15)
[2018-08-02] MEDS: Latanoprost 2.5 ml Opht Soln OU SCH (21:38)
[2018-08-03 06:43] VITALS: O2SAT 100
[2018-08-03] MEDS: Brimonidine 0.15% 50 DROP/5 ML BOTTLE OU SCH (10:07)
[2018-08-03] MEDS: Potassium Chloride 20 mEq ER Tab PO SCH (10:10)
[2018-08-03] MEDS: Insulin Detemir 100 units/ml Vial (Levemir) SC SCH (10:11)
[2018-08-03 12:40] VITALS: BP 124/67; PULSE 73; RESP 18; TEMP 98.1
--- NOTE | 2018-08-04 08:14 | DS ---
DATE OF DISCHARGE: 08/03/2018. CHIEF COMPLAINT: Text. HISTORY OF PRESENT ILLNESS: This 78-year-old female was examined at her bedside. Case was reviewed with nurse, Aubrie Durán and the patient is being discharged on the afternoon of , 08/03/2018. FINAL DIAGNOSES: Altered mental status improved status post CO2 retention secondary to obstructive sleep apnea for which the patient chronically refuses to wear CPAP -- BiPAP. Also with chronic obstructive pulmonary disease, glaucoma, chronic hypertension, paroxysmal atrial fibrillation resolved, anemia of chronic disease, iron-deficiency anemia, insulin-dependent diabetes mellitus, peptic ulcer disease with gastroesophageal reflux disease, degenerative arthritis, paranoid schizophrenia, organic brain syndrome with agitation. DISPOSITION: [facility]. DISCHARGE DIET: Heart-healthy bland. DISCHARGE MEDICATIONS: Glaucoma eyedrops including Alphagan 0.15% 1 drop both eyes daily, Ecotrin 81 mg p.o. daily, Fergon 324 mg p.o. daily, Humulin R low-dose insulin coverage a.c. meals and at bedtime, K-Dur 20 mEq p.o. daily, Lasix 20 mg p.o. b.i.d., Levemir 35 units a.c. breakfast, dinner, Lopressor 100 mg p.o. b.i.d., holding for any blood pressure systolic less than 100 or pulse less than 50, nitroglycerin ointment 1 inch to chest wall every 4 hours p.r.n. systolic blood pressure greater than 160 diastolic blood pressure greater than 100, Norvasc 10 mg p.o. daily, Pepcid 20 mg p.o. at bedtime, Risperdal 0.5 mg p.o. daily, Timoptic 0.5% 1 drop both eyes b.i.d., Xalatan 0.005% 1 drop both eyes at bedtime, Zestril 20 mg p.o. b.i.d. IN SUMMARY: A 78-year-old female who was admitted to the [facility] unresponsive and noted to be in respiratory acidosis secondary to chronic obstructive sleep apnea for which the patient refuses BiPAP administration at the local longterm. The patient was admitted, BiPAP was administered. The patient had paroxysmal atrial fibrillation that improved with BiPAP administration and at the time of discharge, the patient was in a normal sinus rhythm with improved mental status with vital signs; temperature 98.1, respirations 18, pulse 86, and blood pressure 124/67. Labs showed white count 3800, hemoglobin 10.6, hematocrit 33.6, platelets 148,000. PT/INR 1.01, PTT 31.8. Random blood sugar 142. Sodium 139, potassium 4.1, chloride 92, bicarb 42, BUN 28, creatinine 0.9, and calcium 9.5. EKG is now showing normal sinus rhythm. Chest x-ray was reviewed and showed no active pulmonary disease. Echocardiography was reviewed from the Fall of 2017, which showed normal left and right atrial sizes and normal ejection fraction. The patient is discharged to the [facility] for her shelter care. I have ordered follow-ups with Dr. Yaya Stevens her oncologist for a longstanding history of breast cancer in the distant past and also with Psychiatry regarding her mental status issues. She is also ordered to receive BiPAP at bedtime with settings of BiPAP IPAP 16, EPAP 6, FiO2 of 30 to maintain FiO2 above 91%. All of this was reviewed with her daughter, Janene Andino and she is apprised of her overall poor prognosis if she continues to refuse medication and CPAP -- BiPAP as outlined. Greater than 35 minutes was spent in the discharge management of this patient and review of her orders with her longterm staff. All questions were answered. Mikayla Rodriguez MD MTDD
== END 2018-08-03 19:02 | DRG 189 ==
LOC: ED 08:51 → ERH 10:32 → 2RSO 12:19
PROVIDERS: ADMIT Internal Medicine; ATTEND Internal Medicine
PROC: 5A09457 Assistance with Respiratory Ventilation, 24-96 Consecutive Hours, Continuous Positive Airway Pressure (ICD-10-PCS; principal; 2018-07-31)
DX: J96.92 Respiratory failure, unspecified with hypercapnia (principal); E87.4 Mixed disorder of acid-base balance; F02.81 Dementia in other diseases classified elsewhere, unspecified severity, with behavioral disturbance; F20.0 Paranoid schizophrenia; I50.22 Chronic systolic (congestive) heart failure; J44.1 Chronic obstructive pulmonary disease with (acute) exacerbation; G47.33 Obstructive sleep apnea (adult) (pediatric); I48.0 Paroxysmal atrial fibrillation; I11.0 Hypertensive heart disease with heart failure; D50.9 Iron deficiency anemia, unspecified; E11.9 Type 2 diabetes mellitus without complications; G30.9 Alzheimer's disease, unspecified; D63.8 Anemia in other chronic diseases classified elsewhere; Z91.19 Patient's noncompliance with other medical treatment and regimen; I25.2 Old myocardial infarction; I25.10 Atherosclerotic heart disease of native coronary artery without angina pectoris; Z79.4 Long term (current) use of insulin; Z79.82 Long term (current) use of aspirin; Z79.02 Long term (current) use of antithrombotics/antiplatelets; Z79.899 Other long term (current) drug therapy; E87.5 Hyperkalemia; M19.90 Unspecified osteoarthritis, unspecified site; H40.9 Unspecified glaucoma; F41.1 Generalized anxiety disorder; I48.91 Unspecified atrial fibrillation; E78.5 Hyperlipidemia, unspecified; K21.9 Gastro-esophageal reflux disease without esophagitis; K27.9 Peptic ulcer, site unspecified, unspecified as acute or chronic, without hemorrhage or perforation; Z85.3 Personal history of malignant neoplasm of breast; I08.0 Rheumatic disorders of both mitral and aortic valves

== ENCOUNTER 2018-08-07 01:23 | Inpatient (IN) | payer MEDICARE, MEDICAID ==
--- NOTE | 2018-08-07 01:53 | ED PDOC ---
Arrival/HPI - General Chief Complaint: Respiratory Distress Time Seen by Provider: 08/07/18 01:27 Historian: Patient, Family (daughter) - History of Present Illness Narrative History of Present Illness (Text): 08/07/18 01:27 Thao Bishop is a 78 year old female, with a past medical hustory of COPD, CHF, respiratory failure, and Alzheimer's disease, glaucoma. who presents to the emergency department from [facility] by EMS with complaints of shortness of breath. Daughter informs that patient refuses BIPAP treatment in [facility] due to mask being uncomfortable. Patient's daughter requests BIPAP mask from emergency department as a replacement for mask from [facility]. Patient was given 2 NTG in the field. Patient's daughter appreciates secondary complaint of blurry vision due to not using glaucoma drops. Patient denies any fevers, chills, headache, dizziness, chest pain, cough, abdominal pain, nausea, vomiting, diarrhea, dysuria, hematuria, back pain, neck pain, or any other complaint. Time/Duration: Prior to Arrival Symptom Onset: Gradual Symptom Course: Unchanged Activities at Onset: Light Context: Home Past Medical History - Provider Review Nursing Documentation Reviewed: Yes - Infectious Disease Hx of Infectious Diseases: None - Cardiac Hx Cardiac Disorders: Yes Hx Congestive Heart Failure: Yes Hx Hypertension: Yes - Pulmonary Hx Asthma: Yes Hx Chronic Obstructive Pulmonary Disease (COPD): Yes - Neurological Hx Dementia: Yes - HEENT Hx HEENT Disorder: No - Renal Hx Renal Disorder: No - Endocrine/Metabolic Hx Diabetes Mellitus Type 2: Yes - Hematological/Oncological Hx Anemia: Yes - Integumentary Hx Dermatological Disorder: No - Musculoskeletal/Rheumatological Hx Arthritis: Yes - Gastrointestinal Hx Gastroesophageal Reflux: Yes - Genitourinary/Gynecological Hx Genitourinary Disorders: No - Psychiatric Hx Depression: Yes Hx Schizophrenia: Yes Hx Substance Use: No - Anesthesia Hx Anesthesia: No - Suicidal Assessment Feels Threatened In Home Enviroment: No Family/Social History - Physician Review Nursing Documentation Reviewed: Yes Family/Social History: No Known Family HX Smoking Status: Former Smoker Hx Alcohol Use: No Hx Substance Use: No Allergies/Home Meds Allergies/Adverse Reactions: Allergies No Known Allergies Allergy (Verified 08/07/18 01:32) Home Medications: Home Meds Medication Instructions Recorded Confirmed Albuterol/Ipratropium [Duoneb 3 3 ml IH Q6H PRN 09/16/13 07/30/18 MG/3 Ml-0.5 MG/3 Ml 3 Ml] Insulin Detemir [Levemir] 35 units SC ACBD 09/16/13 08/07/18 Magnesium Hydroxide [Milk Of 30 ml PO HS 09/16/13 07/30/18 Magnesia] Aspirin [Ecotrin] 81 mg PO DAILY 02/23/18 08/07/18 Clopidogrel [Plavix] 75 mg PO DAILY 02/23/18 07/30/18 Ferrous Gluconate 324 mg PO DAILY 02/23/18 08/07/18 Lisinopril [Zestril] 20 mg PO BID 02/23/18 08/07/18 Famotidine [Pepcid] 20 mg PO HS 03/02/18 08/07/18 Insulin Human Regular-MED [HumuLIN 1 units [place] [facility] 03/02/18 08/07/18 R MED] Latanoprost/Pf [Latanoprost 0.005% 1 drop OU HS 03/02/18 08/07/18 Eye Drop] Metoprolol Tartrate [Lopressor] 100 mg PO BID 03/02/18 08/07/18 Timolol 0.5% Ophth [Timoptic 0.5% 1 drop OU BID 03/02/18 08/07/18 Ophth Soln] Acetaminophen [Tylenol] 650 mg PO Q6 PRN 07/30/18 08/07/18 Brimonidine 0.15% [Alphagan P 1 drop BOTHEYES DAILY 07/30/18 08/07/18 0.15% Opht] Potassium Chloride [K-Dur 20 mEq 20 meq PO DAILY 07/30/18 08/07/18 ER Tab] Risperidone [Risperdal] 0.5 mg PO HS 07/30/18 08/07/18 amLODIPine [Norvasc] 10 mg PO DAILY 07/30/18 08/07/18 Review of Systems - Physician Review All systems were reviewed & negative as marked: Yes - Review of Systems Constitutional: absent: Fevers, Other (chills) Eyes: Vision Changes (blurry vision due to not taking glaucoma drops.) Respiratory: SOB. absent: Cough Cardiovascular: absent: Chest Pain Gastrointestinal: absent: Abdominal Pain, Diarrhea, Nausea, Vomiting Genitourinary Female: absent: Dysuria, Hematuria Musculoskeletal: absent: Back Pain, Neck Pain Neurological: absent: Headache, Dizziness Physical Exam Vital Signs Reviewed: Yes Vital Signs Pulse Resp BP Pulse Ox 08/07/18 01:32 78 22 96/40 L 100 Temperature: Afebrile Blood Pressure: Hypotensive Pulse: Regular Respiratory Rate: Normal Appearance: Positive for: Well-Appearing, Non-Toxic, Comfortable Pain Distress: None Mental Status: Positive for: Alert and Oriented X 3 - Systems Exam Head: Present: Atraumatic, Normocephalic Pupils: Present: PERRL Extroacular Muscles: Present: EOMI Conjunctiva: Present: Normal Mouth: Present: Moist Mucous Membranes Cardiovascular: Present: Regular Rate and Rhythm, Normal S1, S2. No: Murmurs Abdomen: Present: Normal Bowel Sounds. No: Tenderness, Distention, Peritoneal Signs Upper Extremity: Present: Normal Inspection. No: Cyanosis, Edema Lower Extremity: Present: Normal Inspection. No: Edema Skin: Present: Warm, Dry, Normal Color. No: Rashes Psychiatric: Present: Alert, Oriented x 3, Normal Insight, Normal Concentration Medical Decision Making ED Course and Treatment: 08/07/18 01:27 Impression: Patient is a 78 year old female brought to the emergency department from [facility] via EMS with complaints of shortness of breath. Patient's daughter informs patient refuses BIPAP mask because it is uncomfortable. Patient's daughter requests BIPAP mask from hospital. Differential Diagnosis included but are not limited to: Plan: -- EKG -- Chest X-ray -- Urinalysis -- Labs -- Reassess and disposition Prior Visits: Notes and results from previous visits were reviewed. will place on pap to reducd co2 pt awake and holding conversation case w/w dr de leon accepts want repeat abg the icu consult spoke with dr dodson accepts case - RAD Interpretation Radiology Orders: 08/07/18 01:42 CHEST PORTABLE [RAD] Stat - EKG Interpretation EKG Interpretation (Text): 08/07/18 07:04 nsr rate 75 normal ekg - Scribe Statement The provider has reviewed the documentation as recorded by the Scribe Kel Kendall All medical record entries made by the Scribe were at my direction and personally dictated by me. I have reviewed the chart and agree that the record accurately reflects my personal performance of the history, physical exam, medical decision making, and the department course for this patient. I have also personally directed, reviewed, and agree with the discharge instructions and disposition. Disposition/Present on Arrival - Present on Arrival Any Indicators Present on Arrival: No History of DVT/PE: No History of Uncontrolled Diabetes: No Urinary Catheter: No History of Decub. Ulcer: No History Surgical Site Infection Following: None - Disposition Have Diagnosis and Disposition been Completed?: Yes Diagnosis: COPD exacerbation, Respiratory failure Disposition: HOSPITALIZED Disposition Time: 05:35 Patient Problems: Current Active Problems Problem Status Onset COPD exacerbation Acute Respiratory failure Acute Condition: GUARDED
[2018-08-07 02:18] LABS: ARTERIAL BLOOD GAS HCO3 36.2 mmol/L (21-28); ARTERIAL BLOOD GAS HEMOGLOBIN 11.2 g/dL (11.7-17.4); ARTERIAL BLOOD GAS O2 CAPACITY 16.3 mL/dl (16-24); ARTERIAL BLOOD GAS O2 CONTENT 16.3 ML/dl (15-23); ARTERIAL BLOOD GAS O2 SAT 100.2 % (95-98); ARTERIAL BLOOD GAS PCO2 77 mm/Hg (35-45); ARTERIAL BLOOD GAS PH 7.28 (7.35-7.45); ARTERIAL BLOOD GAS TCO2 38.6 mmol.L (22-28)
[2018-08-07] MEDS: Albuterol-Ipratrop 3 mg / 0.5 (3 ml) UD IH SCH ×7 (02:40→20:00)
[2018-08-07 02:41] LABS: BASO # 0.01 K/mm3 (0.0-2.0); BASO % 0.1 % (0.0-3.0); EOS # 0.1 (0.0-0.7); EOS % 1.3 % (1.5-5.0); HEMOGLOBIN 11.4 g/dL (12.0-16.0); LYMPH # 0.9 (1.2-3.4); LYMPH % 9.9 % (22.0-35.0); MEAN CELL VOLUME 90.5 fl (80.0-105.0); MEAN CORPUSCULAR HEMOGLOBIN 30.1 pg (25.0-35.0); MEAN CORPUSCULAR HGB CONC 33.2 g/dl (31.0-37.0); MONO # 0.8 (0.1-0.6); MONO % 8.8 % (1.0-6.0); RBC 3.79 10^6/uL (3.5-6.1); RED CELL DISTRIBUTION WIDTH 13.2 % (11.5-14.5); WHITE BLOOD COUNT 8.7 10^3/uL (4.5-11.0)
[2018-08-07 02:50] LABS: INR 1.05; PROTHROMBIN TIME 11.6 SECONDS (9.4-12.5)
[2018-08-07 03:01] LABS: B-TYPE NATRIURETIC PEPTIDE 2160 pg/mL (0-450); TROPONIN I < 0.01 ng/mL
[2018-08-07 03:07] LABS: ALBUMIN 3.3 g/dL (3.0-4.8); ALT/SGPT 30 U/L (7-56); AST/SGOT 44 U/L (14-36); BLOOD UREA NITROGEN 22 mg/dL (7-21); CALCIUM 9.3 mg/dL (8.4-10.5); GFR NON-AFRICAN AMERICAN 53
[2018-08-07 04:44] LABS: ARTERIAL BLOOD GAS HCO3 38.5 mmol/L (21-28); ARTERIAL BLOOD GAS HEMOGLOBIN 10.7 g/dL (11.7-17.4); ARTERIAL BLOOD GAS O2 CAPACITY 14.7 mL/dl (16-24); ARTERIAL BLOOD GAS O2 CONTENT 14.6 ML/dl (15-23); ARTERIAL BLOOD GAS O2 SAT 99.4 % (95-98); ARTERIAL BLOOD GAS PCO2 73 mm/Hg (35-45); ARTERIAL BLOOD GAS PH 7.33 (7.35-7.45); ARTERIAL BLOOD GAS TCO2 40.7 mmol.L (22-28)
[2018-08-07] MEDS ORDERED: Midazolam 2 MG/2 ML VIAL ONE (05:46)
[2018-08-07] MEDS ORDERED: Rocuronium 10 mg/ml (5 ml) ONE (05:46)
[2018-08-07] MEDS ORDERED: Midazolam 100 mg/100ml in NS 100 MG/100 ML SOL IV PRN (06:03)
[2018-08-07] MEDS ORDERED: Rocuronium 10 mg/ml (5 ml) IVP ONE (06:09)
[2018-08-07] MEDS ORDERED: Midazolam 2 MG/2 ML VIAL IVP STA (06:09)
--- NOTE | 2018-08-07 06:19 | CP.PCM.CON ---
<Praveen Daniel - Last Filed: 08/07/18 06:46> History of Present Illness - History of Present Illness History of Present Illness: Praveen Daniel DO, PGY-1 ICU Consult Note for Dr. Ratliff CC: worsening SOB HPI: Patient is a 78 year old female with PMH of end-stage COPD, DM2, HTN, CAD, and Alzheimer's dementia presented to ED from [facility] with daughter for concern of worsening respiratory distress. Patient had been refusing bipap at OR as the bipap makes her uncomfortable. Patient's daughter requested that bipap be started. Patient's daughter also appreciated a complaint of blurry vision due to not using patient's normal glaucoma drops. Further history was obtained from review of prior records as patient is in respiratory distress on initial examination. 12-point ROS was otherwise unobtainable due to patient's acute respiratory distress and altered mental status at baseline. PMD: Michael Past Medical History: end-stage COPD, DM2, HTN, CAD, and Alzheimer's dementia Past Surgical History: prior colonoscopy, endoscopy Allergies: NKA Family History: reviewed, non-contributory Social History: prior heavy smoker, no other records of prior EtOH, illicit drug abuse Review of Systems - Review of Systems Systems not reviewed;Unavailable: Acuity of Condition, Altered Mental Status, Intubated Past Patient History - Infectious Disease Hx of Infectious Diseases: None - Past Social History Smoking Status: Former Smoker - CARDIAC Hx Cardiac Disorders: Yes Hx Congestive Heart Failure: Yes Hx Hypertension: Yes - PULMONARY Hx Asthma: Yes Hx Chronic Obstructive Pulmonary Disease (COPD): Yes - NEUROLOGICAL Hx Dementia: Yes - HEENT Hx HEENT Problems: No - RENAL Hx Chronic Kidney Disease: No - ENDOCRINE/METABOLIC Hx Diabetes Mellitus Type 2: Yes - HEMATOLOGICAL/ONCOLOGICAL Hx Anemia: Yes - INTEGUMENTARY Hx Dermatological Problems: No - MUSCULOSKELETAL/RHEUMATOLOGICAL Hx Arthritis: Yes - GASTROINTESTINAL Hx Gastroesophageal Reflux: Yes - GENITOURINARY/GYNECOLOGICAL Hx Genitourinary Disorders: No - PSYCHIATRIC Hx Depression: Yes Hx Schizophrenia: Yes Hx Substance Use: No - SURGICAL HISTORY Hx Surgeries: No - ANESTHESIA Hx Anesthesia: No Meds Allergies/Adverse Reactions: Allergies Allergy/AdvReac Type Severity Reaction Status Date / Time No Known Allergies Allergy Verified 08/07/18 01:32 - Medications Medications: Current Medications Albuterol/Ipratropium (Duoneb 3 Mg/0.5 Mg (3 Ml) Ud) 3 ml IH [id number] YASIR Arformoterol Tartrate (Brovana) 15 mcg IH [id number] YASIR Budesonide (Pulmicort Respules) 0.25 mg IH [id number] YASIR Midazolam 100 mg/100ml in NS (Midazolam 100 Mg/100ml In Ns) 100 mg in 100 mls @ 1 mls/hr IV .Q24H PRN; Protocol PRN Reason: Sedation Azithromycin 250 mg/ Sodium (Chloride) 250 mls @ 167 mls/hr IVPB DAILY YASIR; Protocol Methylprednisolone (Solu-Medrol) 60 mg IVP Q12 YASIR Physical Exam - Constitutional Appears: In Acute Distress, Unkempt - Head Exam Head Exam: ATRAUMATIC, NORMOCEPHALIC - Eye Exam Eye Exam: EOMI, PERRL - ENT Exam ENT Exam: Mucous Membranes Moist - Neck Exam Neck exam: Positive for: Full Rom, Normal Inspection - Respiratory Exam Respiratory Exam: Accessory Muscle Use, Respiratory Distress. absent: Rales, Rhonchi, Wheezes - Cardiovascular Exam Cardiovascular Exam: REGULAR RHYTHM, RRR, +S1, +S2. absent: Diastolic murmur, Gallop, Rubs, Systolic Murmur - GI/Abdominal Exam GI & Abdominal Exam: Normal Bowel Sounds, Soft. absent: Guarding, Tenderness - Extremities Exam Extremities exam: Positive for: full ROM, normal inspection. Negative for: pedal edema - Back Exam Back exam: NORMAL INSPECTION - Neurological Exam Additional comments: responsive to sternal rub but somnolent, difficult to arouse - Skin Skin Exam: Dry, Warm Results - Vital Signs Recent Vital Signs: Last Vital Signs Temp Pulse 91 H 08/07/18 05:59 Resp 14 08/07/18 05:59 BP 176/85 H 08/07/18 05:59 Pulse Ox 100 08/07/18 05:59 - Labs Result Diagrams: 08/07/18 02:05 08/07/18 02:05 Labs: Laboratory Results - last 24 hr 08/07/18 08/07/18 08/07/18 02:05 02:05 02:05 WBC 8.7 D RBC 3.79 Hgb 11.4 L Hct 34.3 L MCV 90.5 MCH 30.1 MCHC 33.2 RDW 13.2 Plt Count 214 MPV 10.0 Neut % (Auto) 79.9 H Lymph % (Auto) 9.9 L [place] % (Auto) 8.8 H Eos % (Auto) 1.3 L Baso % (Auto) 0.1 Lymph # (Auto) 0.9 L [place] # (Auto) 0.8 H Eos # (Auto) 0.1 Baso # (Auto) 0.01 Absolute Neuts (auto) 6.94 H PT 11.6 INR 1.05 APTT 31.0 pCO2 pO2 HCO3 ABG pH ABG Total CO2 ABG O2 Saturation ABG O2 Content ABG Base Excess ABG Hemoglobin ABG Carboxyhemoglobin POC ABG HHb (Measured) ABG Methemoglobin ABG O2 Capacity Hgb O2 Saturation FiO2 Crit Value Called To Crit Value Called By Blood Gas Notified Time Sodium 139 Potassium 4.9 Chloride 97 L Carbon Dioxide 40 H Anion Gap 8 L BUN 22 H Creatinine 1.0 Est GFR ( Amer) > 60 Est GFR (Non-Af Amer) 53 Random Glucose 250 H Calcium 9.3 Magnesium 2.0 Total Bilirubin 0.3 AST 44 H D ALT 30 Alkaline Phosphatase 75 Lactate Dehydrogenase 587 Total Creatine Kinase 29 L Troponin I < 0.01 NT-Pro-B Natriuret Pep 2160 H Total Protein 6.7 Albumin 3.3 Globulin 3.4 Albumin/Globulin Ratio 1.0 L 08/07/18 08/07/18 02:10 04:31 WBC RBC Hgb Hct MCV MCH MCHC RDW Plt Count MPV Neut % (Auto) Lymph % (Auto) [place] % (Auto) Eos % (Auto) Baso % (Auto) Lymph # (Auto) [place] # (Auto) Eos # (Auto) Baso # (Auto) Absolute Neuts (auto) PT INR APTT pCO2 77 H* 73 H* pO2 358.0 H 107.0 H HCO3 36.2 H 38.5 H ABG pH 7.28 L 7.33 L ABG Total CO2 38.6 H 40.7 H ABG O2 Saturation 100.2 H 99.4 H ABG O2 Content 16.3 14.6 L ABG Base Excess 7.2 H 10.3 H ABG Hemoglobin 11.2 L 10.7 L ABG Carboxyhemoglobin 2.0 H 2.2 H POC ABG HHb (Measured) -0.2 L 0.6 ABG Methemoglobin 0.9 1.2 ABG O2 Capacity 16.3 14.7 L Hgb O2 Saturation 97.3 96.0 FiO2 100.0 40.0 Crit Value Called To Erlinda rivas Crit Value Called By [facility] Blood Gas Notified Time 217 443 Sodium Potassium Chloride Carbon Dioxide Anion Gap BUN Creatinine Est GFR ( Amer) Est GFR (Non-Af Amer) Random Glucose Calcium Magnesium Total Bilirubin AST ALT Alkaline Phosphatase Lactate Dehydrogenase Total Creatine Kinase Troponin I NT-Pro-B Natriuret Pep Total Protein Albumin Globulin Albumin/Globulin Ratio Assessment & Plan - Assessment and Plan (Free Text) Assessment: 78 yo F with PMH of end-stage COPD, DM2, HTN, CAD, and Alzheimer's dementia presents in acute respiratory distress. ICU is consulted for management. Plan: Neuro: Has history of Alzheimer's dementia at baseline Monitor neuro status Cardio: RRR, but had episode of hypotension prior to intubation Troponin negative Maintain MAP>65 Monitor for S/Sx of worsening HD compromise Pulm: ABG consistent with acute on chronic hypercapnic respiratory failure S/p ET intubation Continue versed for sedation per protocol Vent settings: 320/14/5, start with FiO2 of 100 and wean as per protocol Maintain O2 saturation>90% Head of bed to 30 degrees Conservative fluid management Maintain oral hygiene Daily ABG and CXR Daily sedation and weaning trials Treat COPD exacerbation with duo-neb, pulmicort, brovana, solumedrol 40 mg IVP q8h GI: NPO while intubated Swallow eval after extubation /Nephro: BUN/Cr stable at 22/1.0 Insert burgess Monitor UOP closely Replete electrolytes as needed Maintain euvolemia Endocrinology: Random glucose: 250 ISS - low protocol Heme/Onc: H/H stable at 11.4/34.3 Has history of anemia of chronic disease Monitor H/H, for s/sx of HD compromise ID: Afebrile, no leukocytosis F/u torres cx, procal Monitor for s/sx of infection DVT/GI PPX: Lovenox/protonix Full Code NPO Monitor in MICU Patient seen, examined with, and plan discussed with my attending Dr. Gaudencio Daniel, D.O. IM Resident PGY-1 <Brandee Ratliff - Last Filed: 08/07/18 06:51> Meds - Medications Medications: Current Medications Albuterol/Ipratropium (Duoneb 3 Mg/0.5 Mg (3 Ml) Ud) 3 ml IH [id number] YASIR Arformoterol Tartrate (Brovana) 15 mcg IH [id number] YASIR Budesonide (Pulmicort Respules) 0.25 mg IH [id number] YASIR Enoxaparin Sodium (Lovenox) 40 mg SC DAILY YASIR; Protocol Midazolam 100 mg/100ml in NS (Midazolam 100 Mg/100ml In Ns) 100 mg in 100 mls @ 1 mls/hr IV .Q24H PRN; Protocol PRN Reason: Sedation Last Titration: 08/07/18 06:25 Dose: 2 mg/hr, 2 mls/hr Azithromycin 250 mg/ Sodium (Chloride) 250 mls @ 167 mls/hr IVPB DAILY YASIR; Protocol Methylprednisolone (Solu-Medrol) 40 mg IVP Q8 YASIR Pantoprazole Sodium (Protonix Inj) 40 mg IVP DAILY [facility] Results - Vital Signs Recent Vital Signs: Last Vital Signs Temp Pulse 69 08/07/18 06:47 Resp 17 08/07/18 06:47 BP 92/44 L 08/07/18 06:47 Pulse Ox 100 08/07/18 06:47 - Labs Result Diagrams: 08/07/18 02:05 08/07/18 02:05 Labs: Laboratory Results - last 24 hr 08/07/18 08/07/18 08/07/18 02:05 02:05 02:05 WBC 8.7 D RBC 3.79 Hgb 11.4 L Hct 34.3 L MCV 90.5 MCH 30.1 MCHC 33.2 RDW 13.2 Plt Count 214 MPV 10.0 Neut % (Auto) 79.9 H Lymph % (Auto) 9.9 L [place] % (Auto) 8.8 H Eos % (Auto) 1.3 L Baso % (Auto) 0.1 Lymph # (Auto) 0.9 L [place] # (Auto) 0.8 H Eos # (Auto) 0.1 Baso # (Auto) 0.01 Absolute Neuts (auto) 6.94 H PT 11.6 INR 1.05 APTT 31.0 pCO2 pO2 HCO3 ABG pH ABG Total CO2 ABG O2 Saturation ABG O2 Content ABG Base Excess ABG Hemoglobin ABG Carboxyhemoglobin POC ABG HHb (Measured) ABG Methemoglobin ABG O2 Capacity Hgb O2 Saturation FiO2 Crit Value Called To Crit Value Called By Blood Gas Notified Time Sodium 139 Potassium 4.9 Chloride 97 L Carbon Dioxide 40 H Anion Gap 8 L BUN 22 H Creatinine 1.0 Est GFR ( Amer) > 60 Est GFR (Non-Af Amer) 53 Random Glucose 250 H Calcium 9.3 Magnesium 2.0 Total Bilirubin 0.3 AST 44 H D ALT 30 Alkaline Phosphatase 75 Lactate Dehydrogenase 587 Total Creatine Kinase 29 L Troponin I < 0.01 NT-Pro-B Natriuret Pep 2160 H Total Protein 6.7 Albumin 3.3 Globulin 3.4 Albumin/Globulin Ratio 1.0 L 08/07/18 08/07/18 02:10 04:31 WBC RBC Hgb Hct MCV MCH MCHC RDW Plt Count MPV Neut % (Auto) Lymph % (Auto) [place] % (Auto) Eos % (Auto) Baso % (Auto) Lymph # (Auto) [place] # (Auto) Eos # (Auto) Baso # (Auto) Absolute Neuts (auto) PT INR APTT pCO2 77 H* 73 H* pO2 358.0 H 107.0 H HCO3 36.2 H 38.5 H ABG pH 7.28 L 7.33 L ABG Total CO2 38.6 H 40.7 H ABG O2 Saturation 100.2 H 99.4 H ABG O2 Content 16.3 14.6 L ABG Base Excess 7.2 H 10.3 H ABG Hemoglobin 11.2 L 10.7 L ABG Carboxyhemoglobin 2.0 H 2.2 H POC ABG HHb (Measured) -0.2 L 0.6 ABG Methemoglobin 0.9 1.2 ABG O2 Capacity 16.3 14.7 L Hgb O2 Saturation 97.3 96.0 FiO2 100.0 40.0 Crit Value Called To Erlinda rivas Crit Value Called By [facility] Blood Gas Notified Time 217 443 Sodium Potassium Chloride Carbon Dioxide Anion Gap BUN Creatinine Est GFR ( Amer) Est GFR (Non-Af Amer) Random Glucose Calcium Magnesium Total Bilirubin AST ALT Alkaline Phosphatase Lactate Dehydrogenase Total Creatine Kinase Troponin I NT-Pro-B Natriuret Pep Total Protein Albumin Globulin Albumin/Globulin Ratio Attending/Attestation - Attestation I have personally seen and examined this patient.: Yes I have fully participated in the care of the patient.: Yes I have reviewed all pertinent clinical information: Yes Notes (Text): 08/07/18 06:50 Seen and examined and discussed with resident. Exam significant for somnolence. Intubated to protect airways. Hold BP meds at this time. Will see how BP trends to start diuresis. A&P as above.
--- NOTE | 2018-08-07 06:25 | PCM.PROC ---
Procedures Attestation:: I certify that I have explained the specified Operation(s) or Procedure(s), risks, benefits and reasonable alternatives to the Patient and/or other person responsible. The opportunity was given to ask questions and all questions answered - Intubation Time Out Performed: Yes Sedative: Versed Paralytic: Rocuronimum Laryngoscope: Glidescope ET Tube Size: 7.5 ET Tube Secured Locarion: Lips ET Tube Placement Confirmation: Visualized Passing Through Cords, Breath Sounds Equal Bilaterally, No Breath Sounds Over Epigastrum, Confirmation w/Capnometry Patient Tolerated Procedure: Well Procedure Immediate Complications: None
[2018-08-07 06:50] LABS: URINE BILIRUBIN NEGATIVE (NEGATIVE); URINE BLOOD LARGE (NEGATIVE); URINE GLUCOSE (UA) 250 mg/dL (NEGATIVE); URINE LEUKOCYTE ESTERASE NEGATIVE Leu/uL (NEGATIVE); URINE PROTEIN >=300 mg/dL (<30 mg/dL); URINE UROBILINOGEN 0.2 E.U./dL (<1 E.U./dL)
[2018-08-07 06:53] LABS: URINE APPEARANCE CLEAR (CLEAR); URINE COLOR YELLOW (YELLOW)
[2018-08-07 06:57] LABS: URINE AMORPHOUS SEDIMENT FEW /hpf; URINE BACTERIA RARE /hpf; URINE HYALINE CAST 0 - 2 /hpf; URINE WBC 0 - 2 /hpf (0-6)
[2018-08-07] MEDS ORDERED: MethylPREDNISolone 40 mg Vial IVP SCH (07:00)
[2018-08-07] MEDS: Arformoterol 15 mcg/2 ml Inh Sol IH SCH ×2 (08:05→20:00)
[2018-08-07] MEDS: Budesonide 0.25 mg/2 ml Inhal Susp UD IH SCH ×2 (08:06→20:00)
[2018-08-07] MEDS: Azithromycin 250 MG in Sodium Chloride 0.9% 250 ML IVPB SCH (09:43)
[2018-08-07] MEDS: Enoxaparin 40 mg Syringe SC SCH (09:44)
[2018-08-07] MEDS: Dexmedetomidine 400mcg/100mL 400 MCG/100 ML BOTTLE IV PRN ×2 (09:46→19:02)
[2018-08-07] MEDS: cefTRIAXone 1 gm 1 GM/100 ML BAG IVPB SCH (09:46)
--- NOTE | 2018-08-07 10:00 | RAD ---
Date of service: 08/07/2018 HISTORY: sob COMPARISON: 07/30/2018 FINDINGS: LUNGS: Bilateral upper lobe infiltrates are seen right greater than left consistent with pneumonia. PLEURA: No significant pleural effusion identified, no pneumothorax apparent. CARDIOVASCULAR: No aortic atherosclerotic calcification present. Normal cardiac size. No pulmonary vascular congestion. OSSEOUS STRUCTURES: No significant abnormalities. VISUALIZED UPPER ABDOMEN: Normal. OTHER FINDINGS: None. IMPRESSION: Bilateral upper lobe infiltrates are seen right greater than left consistent with pneumonia.
--- NOTE | 2018-08-07 10:02 | RAD ---
Date of service: 08/07/2018 HISTORY: post intubation COMPARISON: 08/07/2018 FINDINGS: LUNGS: The endotracheal tube and nasogastric tube are in satisfactory position. There is some improvement in the upper lobe infiltrates PLEURA: No significant pleural effusion identified, no pneumothorax apparent. CARDIOVASCULAR: Aortic calcification Normal cardiac size. No pulmonary vascular congestion. OSSEOUS STRUCTURES: No significant abnormalities. VISUALIZED UPPER ABDOMEN: Normal. OTHER FINDINGS: None. IMPRESSION: The endotracheal tube and nasogastric tube are in satisfactory position. There is some improvement in the upper lobe infiltrates
[2018-08-07] MEDS: Fentanyl 1000mcg/100ml NS 1,000 MCG/100 ML BAG IV PRN (10:03)
--- NOTE | 2018-08-07 10:41 | CARD ---
APPROVED REPORT Date of service: 08/07/2018 EKG Measurement Heart [id number] <Conclusion> Normal sinus rhythm Nonspecific ST-T changes Abnormal ECG
[2018-08-07] MEDS ORDERED: Insulin Reg-MEDIUM-Coverage SC SCH (11:30)
--- NOTE | 2018-08-07 11:55 | CP.CCUPN ---
<KelvinIsidroron - Last Filed: 08/07/18 12:12> CCU Subjective - Physician Review Events Since Last Encounter (Free Text): 08/07/18 11:57 Pt admitted to the ICU after presentation to the ED Subjective (Free Text): 08/07/18 11:57 Pt seen and examined this morning at the bedside in the ICU. She is currently ventilated and in no significant respiratory distress. CCU Objective - Vital Signs / Intake & Output Vital Signs (Last 4 hours): Vital Signs Temp Pulse Resp BP Pulse Ox 08/07/18 09:21 82 100 08/07/18 09:00 81 18 144/66 99 08/07/18 08:13 79 136/89 100 08/07/18 08:00 99.5 F 76 19 120/80 100 Intake and Output (Last 8hrs): Intake & Output 08/06/18 08/07/18 08/07/18 22:59 06:59 14:59 Intake Total 1 8 Balance 1 8 Weight 155 lb 12.8 oz Intake: IV 1 8 - Physical Exam Head: Positive for: Atraumatic, Normocephalic Pupils: Positive for: PERRL Extroacular Muscles: Positive for: EOMI Conjunctiva: Positive for: Normal Mouth: Positive for: Moist Mucous Membranes Cardiovascular: Positive for: Regular Rate and Rhythm, Normal S1, S2. Negative for: Murmurs Abdomen: Positive for: Normal Bowel Sounds. Negative for: Tenderness, Distention, Peritoneal Signs Upper Extremity: Positive for: Normal Inspection. Negative for: Cyanosis, Edema Lower Extremity: Positive for: Normal Inspection. Negative for: Edema Skin: Positive for: Warm, Dry, Normal Color. Negative for: Rashes Psychiatric: Positive for: Alert, Oriented x 3, Normal Insight, Normal Concentration - Medications Active Medications: Active Medications Generic Name Dose Route Start Last Admin Trade Name Freq PRN Reason Stop Dose Admin Albuterol/Ipratropium 3 ml 08/07/18 07:30 08/07/18 08:06 Duoneb 3 Mg/0.5 Mg (3 Ml) Ud IH 3 ml [id number] YASIR Administration Amlodipine Besylate 10 mg 08/07/18 11:30 Norvasc PO DAILY YASIR Arformoterol Tartrate 15 mcg 08/07/18 08:00 08/07/18 08:05 Brovana IH 15 mcg [id number] YASIR Administration Aspirin 81 mg 08/07/18 11:30 Ecotrin PO DAILY [facility] Brimonidine Tartrate 1 drop 08/07/18 11:30 Alphagan P 0.15% Opht OU Q8H YASIR Budesonide 0.25 mg 08/07/18 08:00 08/07/18 08:06 Pulmicort Respules IH 0.25 mg [id number] YASIR Administration Clopidogrel Bisulfate 75 mg 08/07/18 11:30 Plavix PO DAILY [facility] Enoxaparin Sodium 40 mg 08/07/18 10:00 08/07/18 09:44 Lovenox SC 40 mg DAILY [facility] Administration Protocol Azithromycin 250 mg/ Sodium 250 mls @ 167 mls/hr 08/07/18 10:00 08/07/18 09:43 Chloride IVPB 167 mls/hr DAILY [facility] Administration Protocol Dexmedetomidine HCl 400 mcg in 100 mls @ 3.534 mls/hr 08/07/18 09:35 08/07/18 11:07 Precedex 400mcg/100ml IV 0.5 mcg/kg/hr .Q24H PRN 8.834 mls/hr Sedation Titration Protocol 0.2 MCG/KG/HR Fentanyl Citrate 1,000 mcg in 100 mls @ 2 mls/hr 08/07/18 09:38 08/07/18 11:06 Fentanyl Citrate/Sodium Chloride 1 Mg/100 Ml IV 50 mcg/hr .Q24H PRN 5 mls/hr TITRATE PER MD ORDER Titration Protocol 20 MCG/HR Ceftriaxone Sodium 1 gm in 100 mls @ 100 mls/hr 08/07/18 10:00 08/07/18 09:46 Rocephin 1 Gram Ivpb IVPB 100 mls/hr DAILY [facility] Administration Protocol Insulin Human Regular 0 units 08/07/18 11:30 Humulin R High SC ACHS [facility] Protocol Latanoprost 0 ml 08/07/18 22:00 Xalatan Opht OU HS [facility] Lisinopril 20 mg 08/07/18 18:00 Zestril PO BID [facility] Methylprednisolone 40 mg 08/07/18 14:00 Solu-Medrol IVP Q8 [facility] Metoprolol Tartrate 100 mg 08/07/18 18:00 Lopressor PO BID [facility] Pantoprazole Sodium 40 mg 08/07/18 10:00 08/07/18 09:44 Protonix Inj IVP 40 mg DAILY YASIR Administration Timolol Maleate 1 drop 08/07/18 18:00 Timoptic 0.5% Ophth Soln OU BID YASIR - Patient Studies Lab Studies: Lab Studies 08/07/18 08/07/18 08/07/18 Range/Units 06:23 04:31 02:10 WBC (4.5-11.0) 10^3/uL RBC (3.5-6.1) 10^6/uL Hgb (12.0-16.0) g/dL Hct (36.0-48.0) % MCV (80.0-105.0) fl MCH (25.0-35.0) pg MCHC (31.0-37.0) g/dl RDW (11.5-14.5) % Plt Count (120.0-450.0) 10^3/uL MPV (7.0-11.0) fl Neut % (Auto) (50.0-68.0) % Lymph % (Auto) (22.0-35.0) % Cottle % (Auto) (1.0-6.0) % Eos % (Auto) (1.5-5.0) % Baso % (Auto) (0.0-3.0) % Lymph # (Auto) (1.2-3.4) Cottle # (Auto) (0.1-0.6) Eos # (Auto) (0.0-0.7) Baso # (Auto) (0.0-2.0) K/mm3 Absolute Neuts (auto) (1.4-6.5) PT (9.4-12.5) SECONDS INR APTT (26.9-38.3) Seconds pCO2 73 H* 77 H* (35-45) mm/Hg pO2 107.0 H 358.0 H (80-100) mm/Hg HCO3 38.5 H 36.2 H (21-28) mmol/L ABG pH 7.33 L 7.28 L (7.35-7.45) ABG Total CO2 40.7 H 38.6 H (22-28) mmol.L ABG O2 Saturation 99.4 H 100.2 H (95-98) % ABG O2 Content 14.6 L 16.3 (15-23) ML/dl ABG Base Excess 10.3 H 7.2 H (-2.0-3.0) mmol/L ABG Hemoglobin 10.7 L 11.2 L (11.7-17.4) g/dL ABG Carboxyhemoglobin 2.2 H 2.0 H (0.5-1.5) % POC ABG HHb (Measured) 0.6 -0.2 L (0-5) % ABG Methemoglobin 1.2 0.9 (0.0-3.0) % ABG O2 Capacity 14.7 L 16.3 (16-24) mL/dl Hgb O2 Saturation 96.0 97.3 (95.0-98.0) % FiO2 40.0 100.0 % Crit Value Called To Bobo Coffey Crit Value Called By [facility] Blood Gas Notified Time 443 217 Sodium (132-148) mmol/L Potassium (3.6-5.0) mmol/L Chloride (98-107) mmol/L Carbon Dioxide (21-33) mmol/L Anion Gap (10-20) BUN (7-21) mg/dL Creatinine (0.7-1.2) mg/dl Est GFR ( Amer) Est GFR (Non-Af Amer) Random Glucose (70-110) mg/dL Calcium (8.4-10.5) mg/dL Magnesium (1.7-2.2) mg/dL Total Bilirubin (0.2-1.3) mg/dL AST (14-36) U/L ALT (7-56) U/L Alkaline Phosphatase (38-126) U/L Lactate Dehydrogenase (333-699) U/L Total Creatine Kinase (35-230) U/L Troponin I ng/mL NT-Pro-B Natriuret Pep (0-450) pg/mL Total Protein (5.8-8.3) g/dL Albumin (3.0-4.8) g/dL Globulin gm/dL Albumin/Globulin Ratio (1.1-1.8) Urine Color Yellow (YELLOW) Urine Appearance Clear (CLEAR) Urine pH 7.0 (4.7-8.0) Ur Specific [place] 1.025 (1.005-1.035) Urine Protein >=300 H (<30 mg/dL) mg/dL Urine Glucose (UA) 250 H (NEGATIVE) mg/dL Urine Ketones Negative (NEGATIVE) mg/dL Urine Blood Large H (NEGATIVE) Urine Nitrate Negative (NEGATIVE) Urine Bilirubin Negative (NEGATIVE) Urine Urobilinogen 0.2 (<1 E.U./dL) E.U./dL Ur Leukocyte Esterase Negative (NEGATIVE) Rubio/uL Urine RBC 10 - 15 H (0-2) /hpf Urine WBC 0 - 2 (0-6) /hpf Ur Epithelial Cells 1 - 3 (0-5) /hpf Amorphous Sediment Few (NONE) /hpf Urine Bacteria Rare (NONE) /hpf Hyaline Casts 0 - 2 (NONE) /hpf 08/07/18 08/07/18 08/07/18 Range/Units 02:05 02:05 02:05 WBC 8.7 D (4.5-11.0) 10^3/uL RBC 3.79 (3.5-6.1) 10^6/uL Hgb 11.4 L (12.0-16.0) g/dL Hct 34.3 L (36.0-48.0) % MCV 90.5 (80.0-105.0) fl MCH 30.1 (25.0-35.0) pg MCHC 33.2 (31.0-37.0) g/dl RDW 13.2 (11.5-14.5) % Plt Count 214 (120.0-450.0) 10^3/uL MPV 10.0 (7.0-11.0) fl Neut % (Auto) 79.9 H (50.0-68.0) % Lymph % (Auto) 9.9 L (22.0-35.0) % Cottle % (Auto) 8.8 H (1.0-6.0) % Eos % (Auto) 1.3 L (1.5-5.0) % Baso % (Auto) 0.1 (0.0-3.0) % Lymph # (Auto) 0.9 L (1.2-3.4) Cottle # (Auto) 0.8 H (0.1-0.6) Eos # (Auto) 0.1 (0.0-0.7) Baso # (Auto) 0.01 (0.0-2.0) K/mm3 Absolute Neuts (auto) 6.94 H (1.4-6.5) PT 11.6 (9.4-12.5) SECONDS INR 1.05 APTT 31.0 (26.9-38.3) Seconds pCO2 (35-45) mm/Hg pO2 (80-100) mm/Hg HCO3 (21-28) mmol/L ABG pH (7.35-7.45) ABG Total CO2 (22-28) mmol.L ABG O2 Saturation (95-98) % ABG O2 Content (15-23) ML/dl ABG Base Excess (-2.0-3.0) mmol/L ABG Hemoglobin (11.7-17.4) g/dL ABG Carboxyhemoglobin (0.5-1.5) % POC ABG HHb (Measured) (0-5) % ABG Methemoglobin (0.0-3.0) % ABG O2 Capacity (16-24) mL/dl Hgb O2 Saturation (95.0-98.0) % FiO2 % Crit Value Called To Crit Value Called By Blood Gas Notified Time Sodium 139 (132-148) mmol/L Potassium 4.9 (3.6-5.0) mmol/L Chloride 97 L (98-107) mmol/L Carbon Dioxide 40 H (21-33) mmol/L Anion Gap 8 L (10-20) BUN 22 H (7-21) mg/dL Creatinine 1.0 (0.7-1.2) mg/dl Est GFR ( Amer) > 60 Est GFR (Non-Af Amer) 53 Random Glucose 250 H (70-110) mg/dL Calcium 9.3 (8.4-10.5) mg/dL Magnesium 2.0 (1.7-2.2) mg/dL Total Bilirubin 0.3 (0.2-1.3) mg/dL AST 44 H D (14-36) U/L ALT 30 (7-56) U/L Alkaline Phosphatase 75 (38-126) U/L Lactate Dehydrogenase 587 (333-699) U/L Total Creatine Kinase 29 L (35-230) U/L Troponin I < 0.01 ng/mL NT-Pro-B Natriuret Pep 2160 H (0-450) pg/mL Total Protein 6.7 (5.8-8.3) g/dL Albumin 3.3 (3.0-4.8) g/dL Globulin 3.4 gm/dL Albumin/Globulin Ratio 1.0 L (1.1-1.8) Urine Color (YELLOW) Urine Appearance (CLEAR) Urine pH (4.7-8.0) Ur Specific [place] (1.005-1.035) Urine Protein (<30 mg/dL) mg/dL Urine Glucose (UA) (NEGATIVE) mg/dL Urine Ketones (NEGATIVE) mg/dL Urine Blood (NEGATIVE) Urine Nitrate (NEGATIVE) Urine Bilirubin (NEGATIVE) Urine Urobilinogen (<1 E.U./dL) E.U./dL Ur Leukocyte Esterase (NEGATIVE) Rubio/uL Urine RBC (0-2) /hpf Urine WBC (0-6) /hpf Ur Epithelial Cells (0-5) /hpf Amorphous Sediment (NONE) /hpf Urine Bacteria (NONE) /hpf Hyaline Casts (NONE) /hpf Laboratory Results - last 24 hr 08/07/18 08/07/18 08/07/18 02:05 02:05 02:05 WBC 8.7 D RBC 3.79 Hgb 11.4 L Hct 34.3 L MCV 90.5 MCH 30.1 MCHC 33.2 RDW 13.2 Plt Count 214 MPV 10.0 Neut % (Auto) 79.9 H Lymph % (Auto) 9.9 L Cottle % (Auto) 8.8 H Eos % (Auto) 1.3 L Baso % (Auto) 0.1 Lymph # (Auto) 0.9 L Cottle # (Auto) 0.8 H Eos # (Auto) 0.1 Baso # (Auto) 0.01 Absolute Neuts (auto) 6.94 H PT 11.6 INR 1.05 APTT 31.0 pCO2 pO2 HCO3 ABG pH ABG Total CO2 ABG O2 Saturation ABG O2 Content ABG Base Excess ABG Hemoglobin ABG Carboxyhemoglobin POC ABG HHb (Measured) ABG Methemoglobin ABG O2 Capacity Hgb O2 Saturation FiO2 Crit Value Called To Crit Value Called By Blood Gas Notified Time Sodium 139 Potassium 4.9 Chloride 97 L Carbon Dioxide 40 H Anion Gap 8 L BUN 22 H Creatinine 1.0 Est GFR ( Amer) > 60 Est GFR (Non-Af Amer) 53 Random Glucose 250 H Calcium 9.3 Magnesium 2.0 Total Bilirubin 0.3 AST 44 H D ALT 30 Alkaline Phosphatase 75 Lactate Dehydrogenase 587 Total Creatine Kinase 29 L Troponin I < 0.01 NT-Pro-B Natriuret Pep 2160 H Total Protein 6.7 Albumin 3.3 Globulin 3.4 Albumin/Globulin Ratio 1.0 L Urine Color Urine Appearance Urine pH Ur Specific [place] Urine Protein Urine Glucose (UA) Urine Ketones Urine Blood Urine Nitrate Urine Bilirubin Urine Urobilinogen Ur Leukocyte Esterase Urine RBC Urine WBC Ur Epithelial Cells Amorphous Sediment Urine Bacteria Hyaline Casts 08/07/18 08/07/18 08/07/18 02:10 04:31 06:23 WBC RBC Hgb Hct MCV MCH MCHC RDW Plt Count MPV Neut % (Auto) Lymph % (Auto) Cottle % (Auto) Eos % (Auto) Baso % (Auto) Lymph # (Auto) Cottle # (Auto) Eos # (Auto) Baso # (Auto) Absolute Neuts (auto) PT INR APTT pCO2 77 H* 73 H* pO2 358.0 H 107.0 H HCO3 36.2 H 38.5 H ABG pH 7.28 L 7.33 L ABG Total CO2 38.6 H 40.7 H ABG O2 Saturation 100.2 H 99.4 H ABG O2 Content 16.3 14.6 L ABG Base Excess 7.2 H 10.3 H ABG Hemoglobin 11.2 L 10.7 L ABG Carboxyhemoglobin 2.0 H 2.2 H POC ABG HHb (Measured) -0.2 L 0.6 ABG Methemoglobin 0.9 1.2 ABG O2 Capacity 16.3 14.7 L Hgb O2 Saturation 97.3 96.0 FiO2 100.0 40.0 Crit Value Called To Erlinda rivas Crit Value Called By [facility] Blood Gas Notified Time 217 443 Sodium Potassium Chloride Carbon Dioxide Anion Gap BUN Creatinine Est GFR ( Amer) Est GFR (Non-Af Amer) Random Glucose Calcium Magnesium Total Bilirubin AST ALT Alkaline Phosphatase Lactate Dehydrogenase Total Creatine Kinase Troponin I NT-Pro-B Natriuret Pep Total Protein Albumin Globulin Albumin/Globulin Ratio Urine Color Yellow Urine Appearance Clear Urine pH 7.0 Ur Specific [place] 1.025 Urine Protein >=300 H Urine Glucose (UA) 250 H Urine Ketones Negative Urine Blood Large H Urine Nitrate Negative Urine Bilirubin Negative Urine Urobilinogen 0.2 Ur Leukocyte Esterase Negative Urine RBC 10 - 15 H Urine WBC 0 - 2 Ur Epithelial Cells 1 - 3 Amorphous Sediment Few Urine Bacteria Rare Hyaline Casts 0 - 2 Radiology Impressions: Radiology Impressions Chest X-Ray 08/07/18 01:42 IMPRESSION: Bilateral upper lobe infiltrates are seen right greater than left consistent with pneumonia. Chest X-Ray 08/07/18 06:04 IMPRESSION: The endotracheal tube and nasogastric tube are in satisfactory position. There is some improvement in the upper lobe infiltrates EKG/Cardiology Studies: Cardiology / EKG Studies 08/07/18 01:41 ELECTROCARDIOGRAM Stat Comment: Reason For Exam: sob Critical Care Progress Note - Nutrition Nutrition: Nutrition Category Date Time Status NPO Diet [DIET] Diets 08/07/18 Breakfast Ordered Assessment/Plan - Assessment and Plan (Free Text) Assessment: Pt is a 78 yo female with a PMH of COPD, HTN, CAD, DM, and Alzheimer's dementia admitted to the ICU for hypercapneic respiratory failure secondary to acute on chronic COPD exacerbation, with respiratory alkalosis, pt is intubated at this time. Plan: Neuro - Has h/o Alzheimer's dementia at baseline - Moving all extremities - Monitor change in neuro status Cardio - Regular rate and rhythm - BP stable presently (136/90 mmHg) - No lower extremity edema presently - Troponin negative, BNP 2160 - ECHO from 04/2018 showed EF 70%, RVSP 27, moderate LVH - Maintain MAP>65 - Monitor for s/sx of worsening hemodynamic compromise Pulm - Vent settings: 60/5/18/400, wean as per protocol - Maintain O2 saturation >90% - Head of bed to 30 degrees - Conservative fluid management - Maintain oral hygiene - D/C versed, start Fentanyl and Precedex for sedation per protocol - Daily ABG adn CXR - Daily sedation and weaning trials - Continue duonebs, pulmicort, brovana, solumedrol IV for COPD exacerbation GI - NPO while intubated - Swallow eval after extubation Renal - BUN/Cr stable (22/1.0) - Monitor I/O's - Replete electrolytes as needed - Maintain euvolemia Endocrine - Random glucose 250 - High dose sliding scale for DM/hyperglycemia Heme/onc - H/H stable (11.4/34.3) - Has h/o anemia of chronic disease - Daily CBC for H/H, monitor for s/sx of hemodynamic compromise ID - Afebrile (T: 99.5F), no leukocytosis - CXR shows possible infiltrate - Treated with azithromycin and ceftriaxone for PNA coverage - F/U torres cultures, procalcitonin - Daily CBC for WBC, monitor for s/sx of infection DVT/GI PPX: Lovenox/Protonix Full code NPO Monitor in MICU Pt seen, examined, assessment and plan discussed with Dr Yovanny Warren PGY1 - Date & Time Date: 08/07/18 Time: 08:00 <Gilbert Hairston - Last Filed: 08/07/18 12:57> CCU Objective - Vital Signs / Intake & Output Vital Signs (Last 4 hours): Vital Signs Pulse Resp BP Pulse Ox 08/07/18 09:21 82 100 08/07/18 09:00 81 18 144/66 99 Intake and Output (Last 8hrs): Intake & Output 08/06/18 08/07/18 08/07/18 22:59 06:59 14:59 Intake Total 1 8 Balance 1 8 Weight 155 lb 12.8 oz Intake: IV 1 8 - Medications Active Medications: Active Medications Generic Name Dose Route Start Last Admin Trade Name Freq PRN Reason Stop Dose Admin Albuterol/Ipratropium 3 ml 08/07/18 07:30 08/07/18 08:06 Duoneb 3 Mg/0.5 Mg (3 Ml) Ud IH 3 ml [id number] YASIR Administration Amlodipine Besylate 10 mg 08/07/18 11:30 Norvasc PO DAILY YASIR Arformoterol Tartrate 15 mcg 08/07/18 08:00 08/07/18 08:05 Brovana IH 15 mcg [id number] YASIR Administration Aspirin 81 mg 08/07/18 11:30 Ecotrin PO DAILY [facility] Brimonidine Tartrate 1 drop 08/07/18 11:30 Alphagan P 0.15% Opht OU Q8H YASIR Budesonide 0.25 mg 08/07/18 08:00 08/07/18 08:06 Pulmicort Respules IH 0.25 mg [id number] YASIR Administration Clopidogrel Bisulfate 75 mg 08/07/18 11:30 Plavix PO DAILY [facility] Enoxaparin Sodium 40 mg 08/07/18 10:00 08/07/18 09:44 Lovenox SC 40 mg DAILY [facility] Administration Protocol Azithromycin 250 mg/ Sodium 250 mls @ 167 mls/hr 08/07/18 10:00 08/07/18 09:43 Chloride IVPB 167 mls/hr DAILY [facility] Administration Protocol Dexmedetomidine HCl 400 mcg in 100 mls @ 3.534 mls/hr 08/07/18 09:35 08/07/18 11:07 Precedex 400mcg/100ml IV 0.5 mcg/kg/hr .Q24H PRN 8.834 mls/hr Sedation Titration Protocol 0.2 MCG/KG/HR Fentanyl Citrate 1,000 mcg in 100 mls @ 2 mls/hr 08/07/18 09:38 08/07/18 11:06 Fentanyl Citrate/Sodium Chloride 1 Mg/100 Ml IV 50 mcg/hr .Q24H PRN 5 mls/hr TITRATE PER MD ORDER Titration Protocol 20 MCG/HR Ceftriaxone Sodium 1 gm in 100 mls @ 100 mls/hr 08/07/18 10:00 08/07/18 09:46 Rocephin 1 Gram Ivpb IVPB 100 mls/hr DAILY [facility] Administration Protocol Insulin Human Regular 0 units 08/07/18 11:30 Humulin R High SC ACHS [facility] Protocol Latanoprost 0 ml 08/07/18 22:00 Xalatan Opht OU HS [facility] Lisinopril 20 mg 08/07/18 18:00 Zestril PO BID [facility] Methylprednisolone 40 mg 08/07/18 14:00 Solu-Medrol IVP Q8 [facility] Metoprolol Tartrate 100 mg 08/07/18 18:00 Lopressor PO BID [facility] Pantoprazole Sodium 40 mg 08/07/18 10:00 08/07/18 09:44 Protonix Inj IVP 40 mg DAILY [facility] Administration Timolol Maleate 1 drop 08/07/18 18:00 Timoptic 0.5% Ophth Soln OU BID [facility] - Patient Studies Lab Studies: Lab Studies 08/07/18 08/07/18 08/07/18 Range/Units 06:23 04:31 02:10 WBC (4.5-11.0) 10^3/uL RBC (3.5-6.1) 10^6/uL Hgb (12.0-16.0) g/dL Hct (36.0-48.0) % MCV (80.0-105.0) fl MCH (25.0-35.0) pg MCHC (31.0-37.0) g/dl RDW (11.5-14.5) % Plt Count (120.0-450.0) 10^3/uL MPV (7.0-11.0) fl Neut % (Auto) (50.0-68.0) % Lymph % (Auto) (22.0-35.0) % Cottle % (Auto) (1.0-6.0) % Eos % (Auto) (1.5-5.0) % Baso % (Auto) (0.0-3.0) % Lymph # (Auto) (1.2-3.4) [place] # (Auto) (0.1-0.6) Eos # (Auto) (0.0-0.7) Baso # (Auto) (0.0-2.0) K/mm3 Absolute Neuts (auto) (1.4-6.5) PT (9.4-12.5) SECONDS INR APTT (26.9-38.3) Seconds pCO2 73 H* 77 H* (35-45) mm/Hg pO2 107.0 H 358.0 H (80-100) mm/Hg HCO3 38.5 H 36.2 H (21-28) mmol/L ABG pH 7.33 L 7.28 L (7.35-7.45) ABG Total CO2 40.7 H 38.6 H (22-28) mmol.L ABG O2 Saturation 99.4 H 100.2 H (95-98) % ABG O2 Content 14.6 L 16.3 (15-23) ML/dl ABG Base Excess 10.3 H 7.2 H (-2.0-3.0) mmol/L ABG Hemoglobin 10.7 L 11.2 L (11.7-17.4) g/dL ABG Carboxyhemoglobin 2.2 H 2.0 H (0.5-1.5) % POC ABG HHb (Measured) 0.6 -0.2 L (0-5) % ABG Methemoglobin 1.2 0.9 (0.0-3.0) % ABG O2 Capacity 14.7 L 16.3 (16-24) mL/dl Hgb O2 Saturation 96.0 97.3 (95.0-98.0) % FiO2 40.0 100.0 % Crit Value Called To Bobo Coffey Crit Value Called By [facility] Blood Gas Notified Time 443 217 Sodium (132-148) mmol/L Potassium (3.6-5.0) mmol/L Chloride (98-107) mmol/L Carbon Dioxide (21-33) mmol/L Anion Gap (10-20) BUN (7-21) mg/dL Creatinine (0.7-1.2) mg/dl Est GFR ( Amer) Est GFR (Non-Af Amer) Random Glucose (70-110) mg/dL Calcium (8.4-10.5) mg/dL Magnesium (1.7-2.2) mg/dL Total Bilirubin (0.2-1.3) mg/dL AST (14-36) U/L ALT (7-56) U/L Alkaline Phosphatase (38-126) U/L Lactate Dehydrogenase (333-699) U/L Total Creatine Kinase (35-230) U/L Troponin I ng/mL NT-Pro-B Natriuret Pep (0-450) pg/mL Total Protein (5.8-8.3) g/dL Albumin (3.0-4.8) g/dL Globulin gm/dL Albumin/Globulin Ratio (1.1-1.8) Urine Color Yellow (YELLOW) Urine Appearance Clear (CLEAR) Urine pH 7.0 (4.7-8.0) Ur Specific [place] 1.025 (1.005-1.035) Urine Protein >=300 H (<30 mg/dL) mg/dL Urine Glucose (UA) 250 H (NEGATIVE) mg/dL Urine Ketones Negative (NEGATIVE) mg/dL Urine Blood Large H (NEGATIVE) Urine Nitrate Negative (NEGATIVE) Urine Bilirubin Negative (NEGATIVE) Urine Urobilinogen 0.2 (<1 E.U./dL) E.U./dL Ur Leukocyte Esterase Negative (NEGATIVE) Rubio/uL Urine RBC 10 - 15 H (0-2) /hpf Urine WBC 0 - 2 (0-6) /hpf Ur Epithelial Cells 1 - 3 (0-5) /hpf Amorphous Sediment Few (NONE) /hpf Urine Bacteria Rare (NONE) /hpf Hyaline Casts 0 - 2 (NONE) /hpf 08/07/18 08/07/18 08/07/18 Range/Units 02:05 02:05 02:05 WBC 8.7 D (4.5-11.0) 10^3/uL RBC 3.79 (3.5-6.1) 10^6/uL Hgb 11.4 L (12.0-16.0) g/dL Hct 34.3 L (36.0-48.0) % MCV 90.5 (80.0-105.0) fl MCH 30.1 (25.0-35.0) pg MCHC 33.2 (31.0-37.0) g/dl RDW 13.2 (11.5-14.5) % Plt Count 214 (120.0-450.0) 10^3/uL MPV 10.0 (7.0-11.0) fl Neut % (Auto) 79.9 H (50.0-68.0) % Lymph % (Auto) 9.9 L (22.0-35.0) % Cottle % (Auto) 8.8 H (1.0-6.0) % Eos % (Auto) 1.3 L (1.5-5.0) % Baso % (Auto) 0.1 (0.0-3.0) % Lymph # (Auto) 0.9 L (1.2-3.4) Cottle # (Auto) 0.8 H (0.1-0.6) Eos # (Auto) 0.1 (0.0-0.7) Baso # (Auto) 0.01 (0.0-2.0) K/mm3 Absolute Neuts (auto) 6.94 H (1.4-6.5) PT 11.6 (9.4-12.5) SECONDS INR 1.05 APTT 31.0 (26.9-38.3) Seconds pCO2 (35-45) mm/Hg pO2 (80-100) mm/Hg HCO3 (21-28) mmol/L ABG pH (7.35-7.45) ABG Total CO2 (22-28) mmol.L ABG O2 Saturation (95-98) % ABG O2 Content (15-23) ML/dl ABG Base Excess (-2.0-3.0) mmol/L ABG Hemoglobin (11.7-17.4) g/dL ABG Carboxyhemoglobin (0.5-1.5) % POC ABG HHb (Measured) (0-5) % ABG Methemoglobin (0.0-3.0) % ABG O2 Capacity (16-24) mL/dl Hgb O2 Saturation (95.0-98.0) % FiO2 % Crit Value Called To Crit Value Called By Blood Gas Notified Time Sodium 139 (132-148) mmol/L Potassium 4.9 (3.6-5.0) mmol/L Chloride 97 L (98-107) mmol/L Carbon Dioxide 40 H (21-33) mmol/L Anion Gap 8 L (10-20) BUN 22 H (7-21) mg/dL Creatinine 1.0 (0.7-1.2) mg/dl Est GFR ( Amer) > 60 Est GFR (Non-Af Amer) 53 Random Glucose 250 H (70-110) mg/dL Calcium 9.3 (8.4-10.5) mg/dL Magnesium 2.0 (1.7-2.2) mg/dL Total Bilirubin 0.3 (0.2-1.3) mg/dL AST 44 H D (14-36) U/L ALT 30 (7-56) U/L Alkaline Phosphatase 75 (38-126) U/L Lactate Dehydrogenase 587 (333-699) U/L Total Creatine Kinase 29 L (35-230) U/L Troponin I < 0.01 ng/mL NT-Pro-B Natriuret Pep 2160 H (0-450) pg/mL Total Protein 6.7 (5.8-8.3) g/dL Albumin 3.3 (3.0-4.8) g/dL Globulin 3.4 gm/dL Albumin/Globulin Ratio 1.0 L (1.1-1.8) Urine Color (YELLOW) Urine Appearance (CLEAR) Urine pH (4.7-8.0) Ur Specific [place] (1.005-1.035) Urine Protein (<30 mg/dL) mg/dL Urine Glucose (UA) (NEGATIVE) mg/dL Urine Ketones (NEGATIVE) mg/dL Urine Blood (NEGATIVE) Urine Nitrate (NEGATIVE) Urine Bilirubin (NEGATIVE) Urine Urobilinogen (<1 E.U./dL) E.U./dL Ur Leukocyte Esterase (NEGATIVE) Rubio/uL Urine RBC (0-2) /hpf Urine WBC (0-6) /hpf Ur Epithelial Cells (0-5) /hpf Amorphous Sediment (NONE) /hpf Urine Bacteria (NONE) /hpf Hyaline Casts (NONE) /hpf Laboratory Results - last 24 hr 08/07/18 08/07/18 08/07/18 02:05 02:05 02:05 WBC 8.7 D RBC 3.79 Hgb 11.4 L Hct 34.3 L MCV 90.5 MCH 30.1 MCHC 33.2 RDW 13.2 Plt Count 214 MPV 10.0 Neut % (Auto) 79.9 H Lymph % (Auto) 9.9 L Cottle % (Auto) 8.8 H Eos % (Auto) 1.3 L Baso % (Auto) 0.1 Lymph # (Auto) 0.9 L Cottle # (Auto) 0.8 H Eos # (Auto) 0.1 Baso # (Auto) 0.01 Absolute Neuts (auto) 6.94 H PT 11.6 INR 1.05 APTT 31.0 pCO2 pO2 HCO3 ABG pH ABG Total CO2 ABG O2 Saturation ABG O2 Content ABG Base Excess ABG Hemoglobin ABG Carboxyhemoglobin POC ABG HHb (Measured) ABG Methemoglobin ABG O2 Capacity Hgb O2 Saturation FiO2 Crit Value Called To Crit Value Called By Blood Gas Notified Time Sodium 139 Potassium 4.9 Chloride 97 L Carbon Dioxide 40 H Anion Gap 8 L BUN 22 H Creatinine 1.0 Est GFR ( Amer) > 60 Est GFR (Non-Af Amer) 53 Random Glucose 250 H Calcium 9.3 Magnesium 2.0 Total Bilirubin 0.3 AST 44 H D ALT 30 Alkaline Phosphatase 75 Lactate Dehydrogenase 587 Total Creatine Kinase 29 L Troponin I < 0.01 NT-Pro-B Natriuret Pep 2160 H Total Protein 6.7 Albumin 3.3 Globulin 3.4 Albumin/Globulin Ratio 1.0 L Urine Color Urine Appearance Urine pH Ur Specific [place] Urine Protein Urine Glucose (UA) Urine Ketones Urine Blood Urine Nitrate Urine Bilirubin Urine Urobilinogen Ur Leukocyte Esterase Urine RBC Urine WBC Ur Epithelial Cells Amorphous Sediment Urine Bacteria Hyaline Casts 08/07/18 08/07/18 08/07/18 02:10 04:31 06:23 WBC RBC Hgb Hct MCV MCH MCHC RDW Plt Count MPV Neut % (Auto) Lymph % (Auto) Cottle % (Auto) Eos % (Auto) Baso % (Auto) Lymph # (Auto) Cottle # (Auto) Eos # (Auto) Baso # (Auto) Absolute Neuts (auto) PT INR APTT pCO2 77 H* 73 H* pO2 358.0 H 107.0 H HCO3 36.2 H 38.5 H ABG pH 7.28 L 7.33 L ABG Total CO2 38.6 H 40.7 H ABG O2 Saturation 100.2 H 99.4 H ABG O2 Content 16.3 14.6 L ABG Base Excess 7.2 H 10.3 H ABG Hemoglobin 11.2 L 10.7 L ABG Carboxyhemoglobin 2.0 H 2.2 H POC ABG HHb (Measured) -0.2 L 0.6 ABG Methemoglobin 0.9 1.2 ABG O2 Capacity 16.3 14.7 L Hgb O2 Saturation 97.3 96.0 FiO2 100.0 40.0 Crit Value Called To Erlinda rivas Crit Value Called By [facility] Blood Gas Notified Time 217 443 Sodium Potassium Chloride Carbon Dioxide Anion Gap BUN Creatinine Est GFR ( Amer) Est GFR (Non-Af Amer) Random Glucose Calcium Magnesium Total Bilirubin AST ALT Alkaline Phosphatase Lactate Dehydrogenase Total Creatine Kinase Troponin I NT-Pro-B Natriuret Pep Total Protein Albumin Globulin Albumin/Globulin Ratio Urine Color Yellow Urine Appearance Clear Urine pH 7.0 Ur Specific [place] 1.025 Urine Protein >=300 H Urine Glucose (UA) 250 H Urine Ketones Negative Urine Blood Large H Urine Nitrate Negative Urine Bilirubin Negative Urine Urobilinogen 0.2 Ur Leukocyte Esterase Negative Urine RBC 10 - 15 H Urine WBC 0 - 2 Ur Epithelial Cells 1 - 3 Amorphous Sediment Few Urine Bacteria Rare Hyaline Casts 0 - 2 Radiology Impressions: Radiology Impressions Chest X-Ray 08/07/18 01:42 IMPRESSION: Bilateral upper lobe infiltrates are seen right greater than left consistent with pneumonia. Chest X-Ray 03/18/19 06:04 IMPRESSION: The endotracheal tube and nasogastric tube are in satisfactory position. There is some improvement in the upper lobe infiltrates EKG/Cardiology Studies: Cardiology / EKG Studies 08/07/18 01:41 ELECTROCARDIOGRAM Stat Comment: Reason For Exam: sob Critical Care Progress Note - Nutrition Nutrition: Nutrition Category Date Time Status NPO Diet [DIET] Diets 08/07/18 Breakfast Ordered Assessment/Plan - Assessment and Plan (Free Text) Plan: Patient seen and examined on rounds with resident, agree with note with following additions/exceptions: Patient is 78yo female with PMHx of COPD, HTN, CAD, DM, and Alzheimer's dementia admitted to the ICU for hypercapneic respiratory, COPD exacerbation Currently intubated, sedated on Precedex, Fentanyl, afebrile, HD stable, in NAD Labs, imaging, chart reviewed COPD exacerbation Hypercapnic resp failure rule out PNA CAD DM Alzheimers disease HTN Recommend: - cont with vent support, low tidal vol ventilation, duonebs PRN, daily CPAP trial, ABG, CXR - follow up cultures, BCx, UCx, Procal, Urine Lg, Strep - Rocephine Azithro - BP control, resume home meds - ASA, Plavix, Statin - FS control - DC versed - monitor I/Os - GI ppx - DVT ppx - Monitor in MICU Critical care time 35 minutes
[2018-08-07] MEDS: Brimonidine 0.15% 50 DROP/5 ML BOTTLE OU SCH ×2 (13:04→19:30)
[2018-08-07] MEDS: Insulin Reg-HIGH-Coverage SC SCH ×3 (13:04→22:02)
[2018-08-07] MEDS: MethylPREDNISolone 40 mg Vial IVP SCH ×2 (13:45→21:12)
[2018-08-07 16:16] VITALS: BMI 26.6
[2018-08-07] MEDS ORDERED: Influenza Vaccine 60 mcg/0.5 mL SYR (4YR UP) IM ONE (16:16)
[2018-08-07] MEDS: Latanoprost 2.5 ml Opht Soln OU SCH (21:13)
[2018-08-08] MEDS ORDERED: Insulin Regular 1 UNITS/0.01 ML ML SC ONE (02:14)
[2018-08-08] MEDS: Brimonidine 0.15% 50 DROP/5 ML BOTTLE OU SCH ×3 (02:44→20:33)
[2018-08-08] MEDS: Fentanyl 1000mcg/100ml NS 1,000 MCG/100 ML BAG IV PRN (02:52)
[2018-08-08] MEDS: Albuterol-Ipratrop 3 mg / 0.5 (3 ml) UD IH SCH ×7 (04:30→23:50)
[2018-08-08] MEDS: Dexmedetomidine 400mcg/100mL 400 MCG/100 ML BOTTLE IV PRN (05:42)
[2018-08-08] MEDS: MethylPREDNISolone 40 mg Vial IVP SCH ×3 (05:47→22:19)
[2018-08-08 05:58] LABS: ARTERIAL BLOOD GAS HCO3 26.7 mmol/L (21-28); ARTERIAL BLOOD GAS HEMOGLOBIN 11.5 g/dL (11.7-17.4); ARTERIAL BLOOD GAS O2 CAPACITY 16.5 mL/dl (16-24); ARTERIAL BLOOD GAS O2 CONTENT 16.5 ML/dl (15-23); ARTERIAL BLOOD GAS O2 SAT 100.2 % (95-98); ARTERIAL BLOOD GAS PCO2 32 mm/Hg (35-45); ARTERIAL BLOOD GAS PH 7.53 (7.35-7.45); ARTERIAL BLOOD GAS TCO2 27.7 mmol.L (22-28)
[2018-08-08] MEDS ORDERED: Metoprolol 1 mg/ml Inj IVP ONE (06:10)
[2018-08-08 07:19] LABS: HEMOGLOBIN 11.8 g/dL (12.0-16.0); LYMPH # 0.7 (1.2-3.4); LYMPH % 16.4 % (22.0-35.0); MEAN CORPUSCULAR HGB CONC 33.3 g/dl (31.0-37.0); MEAN PLATELET VOLUME 10.7 fl (7.0-11.0); MONO # 0.3 (0.1-0.6); MONO % 7.6 % (1.0-6.0); RBC 4.07 10^6/uL (3.5-6.1); RED CELL DISTRIBUTION WIDTH 13.7 % (11.5-14.5); WHITE BLOOD COUNT 4.5 10^3/uL (4.5-11.0)
[2018-08-08 07:38] LABS: ALB/GLOB RATIO 1.1 (1.1-1.8); ALBUMIN 4.1 g/dL (3.0-4.8); ALT/SGPT 18 U/L (7-56); AST/SGOT 23 U/L (14-36); BLOOD UREA NITROGEN 33 mg/dL (7-21); CALCIUM 10.3 mg/dL (8.4-10.5); GFR NON-AFRICAN AMERICAN > 60
[2018-08-08] MEDS: Arformoterol 15 mcg/2 ml Inh Sol IH SCH ×2 (07:39→20:00)
[2018-08-08] MEDS: Budesonide 0.25 mg/2 ml Inhal Susp UD IH SCH ×2 (07:40→20:29)
[2018-08-08] MEDS: Insulin Reg-HIGH-Coverage SC SCH ×4 (07:54→22:42)
[2018-08-08] MEDS: Enoxaparin 40 mg Syringe SC SCH (09:53)
[2018-08-08] MEDS: cefTRIAXone 1 gm 1 GM/100 ML BAG IVPB SCH (09:58)
[2018-08-08] MEDS: Azithromycin 250 MG in Sodium Chloride 0.9% 250 ML IVPB SCH (10:00)
[2018-08-08] MEDS: Insulin Detemir 100 units/ml Vial (Levemir) SC SCH ×2 (10:38→22:42)
--- NOTE | 2018-08-08 10:57 | RAD ---
Date of service: 08/08/2018 HISTORY: COPD on vent COMPARISON: 08/07/2018 FINDINGS: LUNGS: The lungs are clear. The previously seen infiltrates in the right upper lobe have resolved. The endotracheal and nasogastric tubes are unchanged. PLEURA: No significant pleural effusion identified, no pneumothorax apparent. CARDIOVASCULAR: Mild aortic calcification Normal cardiac size. No pulmonary vascular congestion. OSSEOUS STRUCTURES: No significant abnormalities. VISUALIZED UPPER ABDOMEN: Normal. OTHER FINDINGS: None. IMPRESSION: The lungs are clear. The previously seen infiltrates in the right upper lobe have resolved. The endotracheal and nasogastric tubes are unchanged.
--- NOTE | 2018-08-08 11:09 | CP.CCUPN ---
<Isidro Warren - Last Filed: 08/08/18 11:05> CCU Subjective - Physician Review Events Since Last Encounter (Free Text): 08/08/18 11:05 no acute events overnight Subjective (Free Text): 08/07/18 11:57 Pt seen and examined this morning at the bedside in the ICU. She is currently ventilated and in no significant respiratory distress. 08/08/18 11:06 Pt seen and examined, pt intubated during exam CCU Objective - Vital Signs / Intake & Output Vital Signs (Last 4 hours): Vital Signs Pulse BP 08/08/18 09:54 66 152/73 H 08/08/18 09:53 66 152/73 H Intake and Output (Last 8hrs): Intake & Output 08/07/18 08/08/18 08/08/18 22:59 06:59 14:59 Intake Total 212 272 20 Output Total 750 Balance 212 -478 20 Intake: IV 212 272 20 Left Wrist 50 fentanyl 36 precedex 106 Output: Urine 750 Urethral (Hopkins) 750 Other: # Voids Urethral (Hopkins) 850 - Physical Exam Head: Positive for: Atraumatic, Normocephalic Mouth: Positive for: Moist Mucous Membranes Cardiovascular: Positive for: Regular Rate and Rhythm, Normal S1, S2. Negative for: Murmurs Abdomen: Positive for: Normal Bowel Sounds. Negative for: Tenderness, Distention, Peritoneal Signs Upper Extremity: Positive for: Normal Inspection. Negative for: Cyanosis, Edema Lower Extremity: Positive for: Normal Inspection. Negative for: Edema Skin: Positive for: Warm, Dry, Normal Color. Negative for: Rashes - Medications Active Medications: Active Medications Generic Name Dose Route Start Last Admin Trade Name Freq PRN Reason Stop Dose Admin Albuterol/Ipratropium 3 ml 08/07/18 07:30 08/08/18 07:39 Duoneb 3 Mg/0.5 Mg (3 Ml) Ud IH 3 ml [id number] YASIR Administration Amlodipine Besylate 10 mg 08/07/18 11:30 08/08/18 09:54 Norvasc PO 10 mg DAILY YASIR Administration Arformoterol Tartrate 15 mcg 08/07/18 08:00 08/08/18 07:39 Brovana IH 15 mcg [id number] YASIR Administration Aspirin 81 mg 08/07/18 11:30 08/08/18 09:54 Ecotrin PO 81 mg DAILY YASIR Administration Brimonidine Tartrate 1 drop 08/07/18 11:30 08/08/18 02:44 Alphagan P 0.15% Opht OU 1 drop Q8H YASIR Administration Budesonide 0.25 mg 08/07/18 08:00 08/08/18 07:40 Pulmicort Respules IH 0.25 mg [id number] YASIR Administration Clopidogrel Bisulfate 75 mg 08/07/18 11:30 08/08/18 09:54 Plavix PO 75 mg DAILY YASIR Administration Enoxaparin Sodium 40 mg 08/07/18 10:00 08/08/18 09:53 Lovenox SC 40 mg DAILY YASIR Administration Protocol Furosemide 20 mg 08/08/18 10:30 Lasix IV Q12H YASIR Azithromycin 250 mg/ Sodium 250 mls @ 167 mls/hr 08/07/18 10:00 08/08/18 10:00 Chloride IVPB 167 mls/hr DAILY YASIR Administration Protocol Dexmedetomidine HCl 400 mcg in 100 mls @ 3.534 mls/hr 08/07/18 09:35 08/08/18 09:38 Precedex 400mcg/100ml IV 0.2 mcg/kg/hr .Q24H PRN 3.534 mls/hr Sedation Titration Protocol 0.2 MCG/KG/HR Fentanyl Citrate 1,000 mcg in 100 mls @ 2 mls/hr 08/07/18 09:38 08/08/18 07:33 Fentanyl Citrate/Sodium Chloride 1 Mg/100 Ml IV 0 mcg/hr .Q24H PRN 0 mls/hr TITRATE PER MD ORDER Titration Protocol 20 MCG/HR Ceftriaxone Sodium 1 gm in 100 mls @ 100 mls/hr 08/07/18 10:00 08/08/18 09:58 Rocephin 1 Gram Ivpb IVPB 100 mls/hr DAILY YASIR Administration Protocol Insulin Detemir 20 unit 08/08/18 09:30 08/08/18 10:38 Levemir SC 20 units Q12H YASIR Administration Insulin Human Regular 0 units 08/07/18 11:30 08/08/18 07:54 Humulin R High SC 12 unit ACHS YASIR Administration Protocol Latanoprost 0 ml 08/07/18 22:00 08/07/18 21:13 Xalatan Opht OU 2.5 ml HS YASIR Administration Lisinopril 20 mg 08/07/18 18:00 08/08/18 09:54 Zestril PO 20 mg BID YASIR Administration Methylprednisolone 20 mg 08/08/18 10:00 08/08/18 09:52 Solu-Medrol IVP 20 mg Q12 YASIR Administration Metoprolol Tartrate 100 mg 08/07/18 18:00 08/08/18 09:53 Lopressor PO 100 mg BID YASIR Administration Pantoprazole Sodium 40 mg 08/07/18 10:00 08/08/18 09:52 Protonix Inj IVP 40 mg DAILY YASIR Administration Potassium Chloride 20 meq 08/08/18 18:00 Potassium Chloride Oral Soln NG BID [facility] Timolol Maleate 1 drop 08/07/18 18:00 08/08/18 09:55 Timoptic 0.5% Ophth Soln OU 1 drop BID YASIR Administration - Patient Studies Lab Studies: Microbiology Studies 08/07/18 06:23 Urine Culture - Final Urine,Clean Catch No Growth (<1,000 CFU/ML) 08/07/18 02:30 Blood Culture - Preliminary Blood-Venous NO GROWTH AFTER 24 HOURS 08/07/18 02:05 Blood Culture - Preliminary Blood-Venous NO GROWTH AFTER 24 HOURS Lab Studies 08/08/18 08/08/18 08/08/18 Range/Units 10:37 07:29 06:30 WBC (4.5-11.0) 10^3/uL RBC (3.5-6.1) 10^6/uL Hgb (12.0-16.0) g/dL Hct (36.0-48.0) % MCV (80.0-105.0) fl MCH (25.0-35.0) pg MCHC (31.0-37.0) g/dl RDW (11.5-14.5) % Plt Count (120.0-450.0) 10^3/uL MPV (7.0-11.0) fl Neut % (Auto) (50.0-68.0) % Lymph % (Auto) (22.0-35.0) % [place] % (Auto) (1.0-6.0) % Eos % (Auto) (1.5-5.0) % Baso % (Auto) (0.0-3.0) % Lymph # (Auto) (1.2-3.4) [place] # (Auto) (0.1-0.6) Eos # (Auto) (0.0-0.7) Baso # (Auto) (0.0-2.0) K/mm3 Absolute Neuts (auto) (1.4-6.5) pCO2 (35-45) mm/Hg pO2 (80-100) mm/Hg HCO3 (21-28) mmol/L ABG pH (7.35-7.45) ABG Total CO2 (22-28) mmol.L ABG O2 Saturation (95-98) % ABG O2 Content (15-23) ML/dl ABG Base Excess (-2.0-3.0) mmol/L ABG Hemoglobin (11.7-17.4) g/dL ABG Carboxyhemoglobin (0.5-1.5) % POC ABG HHb (Measured) (0-5) % ABG Methemoglobin (0.0-3.0) % ABG O2 Capacity (16-24) mL/dl Hgb O2 Saturation (95.0-98.0) % FiO2 % Sodium 139 (132-148) mmol/L Potassium 3.9 (3.6-5.0) mmol/L Chloride 100 (98-107) mmol/L Carbon Dioxide 29 (21-33) mmol/L Anion Gap 15 (10-20) BUN 33 H (7-21) mg/dL Creatinine 0.9 (0.7-1.2) mg/dl Est GFR ( Amer) > 60 Est GFR (Non-Af Amer) > 60 POC Glucose (mg/dL) 372 H 384 H (65-110) mg/dL Random Glucose 405 H* D (70-110) mg/dL Calcium 10.3 (8.4-10.5) mg/dL Total Bilirubin 0.8 (0.2-1.3) mg/dL AST 23 (14-36) U/L ALT 18 (7-56) U/L Alkaline Phosphatase 97 (38-126) U/L Total Protein 7.8 (5.8-8.3) g/dL Albumin 4.1 (3.0-4.8) g/dL Globulin 3.7 gm/dL Albumin/Globulin Ratio 1.1 (1.1-1.8) 08/08/18 08/08/18 08/08/18 Range/Units 06:30 05:50 01:55 WBC 4.5 D (4.5-11.0) 10^3/uL RBC 4.07 (3.5-6.1) 10^6/uL Hgb 11.8 L (12.0-16.0) g/dL Hct 35.4 L (36.0-48.0) % MCV 87.0 D (80.0-105.0) fl MCH 29.0 (25.0-35.0) pg MCHC 33.3 (31.0-37.0) g/dl RDW 13.7 (11.5-14.5) % Plt Count 181 (120.0-450.0) 10^3/uL MPV 10.7 (7.0-11.0) fl Neut % (Auto) 76.0 H (50.0-68.0) % Lymph % (Auto) 16.4 L (22.0-35.0) % [place] % (Auto) 7.6 H (1.0-6.0) % Eos % (Auto) 0.0 L (1.5-5.0) % Baso % (Auto) 0.0 (0.0-3.0) % Lymph # (Auto) 0.7 L (1.2-3.4) [place] # (Auto) 0.3 (0.1-0.6) Eos # (Auto) 0.0 (0.0-0.7) Baso # (Auto) 0.00 (0.0-2.0) K/mm3 Absolute Neuts (auto) 3.42 (1.4-6.5) pCO2 32 L (35-45) mm/Hg pO2 291.0 H (80-100) mm/Hg HCO3 26.7 (21-28) mmol/L ABG pH 7.53 H (7.35-7.45) ABG Total CO2 27.7 (22-28) mmol.L ABG O2 Saturation 100.2 H (95-98) % ABG O2 Content 16.5 (15-23) ML/dl ABG Base Excess 4.2 H (-2.0-3.0) mmol/L ABG Hemoglobin 11.5 L (11.7-17.4) g/dL ABG Carboxyhemoglobin 1.7 H (0.5-1.5) % POC ABG HHb (Measured) -0.2 L (0-5) % ABG Methemoglobin 1.2 (0.0-3.0) % ABG O2 Capacity 16.5 (16-24) mL/dl Hgb O2 Saturation 97.2 (95.0-98.0) % FiO2 60.0 % Sodium (132-148) mmol/L Potassium (3.6-5.0) mmol/L Chloride (98-107) mmol/L Carbon Dioxide (21-33) mmol/L Anion Gap (10-20) BUN (7-21) mg/dL Creatinine (0.7-1.2) mg/dl Est GFR ( Amer) Est GFR (Non-Af Amer) POC Glucose (mg/dL) 332 H (65-110) mg/dL Random Glucose (70-110) mg/dL Calcium (8.4-10.5) mg/dL Total Bilirubin (0.2-1.3) mg/dL AST (14-36) U/L ALT (7-56) U/L Alkaline Phosphatase (38-126) U/L Total Protein (5.8-8.3) g/dL Albumin (3.0-4.8) g/dL Globulin gm/dL Albumin/Globulin Ratio (1.1-1.8) 08/07/18 08/07/18 08/07/18 Range/Units 21:52 16:21 10:56 WBC (4.5-11.0) 10^3/uL RBC (3.5-6.1) 10^6/uL Hgb (12.0-16.0) g/dL Hct (36.0-48.0) % MCV (80.0-105.0) fl MCH (25.0-35.0) pg MCHC (31.0-37.0) g/dl RDW (11.5-14.5) % Plt Count (120.0-450.0) 10^3/uL MPV (7.0-11.0) fl Neut % (Auto) (50.0-68.0) % Lymph % (Auto) (22.0-35.0) % [place] % (Auto) (1.0-6.0) % Eos % (Auto) (1.5-5.0) % Baso % (Auto) (0.0-3.0) % Lymph # (Auto) (1.2-3.4) [place] # (Auto) (0.1-0.6) Eos # (Auto) (0.0-0.7) Baso # (Auto) (0.0-2.0) K/mm3 Absolute Neuts (auto) (1.4-6.5) pCO2 (35-45) mm/Hg pO2 (80-100) mm/Hg HCO3 (21-28) mmol/L ABG pH (7.35-7.45) ABG Total CO2 (22-28) mmol.L ABG O2 Saturation (95-98) % ABG O2 Content (15-23) ML/dl ABG Base Excess (-2.0-3.0) mmol/L ABG Hemoglobin (11.7-17.4) g/dL ABG Carboxyhemoglobin (0.5-1.5) % POC ABG HHb (Measured) (0-5) % ABG Methemoglobin (0.0-3.0) % ABG O2 Capacity (16-24) mL/dl Hgb O2 Saturation (95.0-98.0) % FiO2 % Sodium (132-148) mmol/L Potassium (3.6-5.0) mmol/L Chloride (98-107) mmol/L Carbon Dioxide (21-33) mmol/L Anion Gap (10-20) BUN (7-21) mg/dL Creatinine (0.7-1.2) mg/dl Est GFR ( Amer) Est GFR (Non-Af Amer) POC Glucose (mg/dL) 320 H 256 H 255 H (65-110) mg/dL Random Glucose (70-110) mg/dL Calcium (8.4-10.5) mg/dL Total Bilirubin (0.2-1.3) mg/dL AST (14-36) U/L ALT (7-56) U/L Alkaline Phosphatase (38-126) U/L Total Protein (5.8-8.3) g/dL Albumin (3.0-4.8) g/dL Globulin gm/dL Albumin/Globulin Ratio (1.1-1.8) 08/07/18 Range/Units 08:00 WBC (4.5-11.0) 10^3/uL RBC (3.5-6.1) 10^6/uL Hgb (12.0-16.0) g/dL Hct (36.0-48.0) % MCV (80.0-105.0) fl MCH (25.0-35.0) pg MCHC (31.0-37.0) g/dl RDW (11.5-14.5) % Plt Count (120.0-450.0) 10^3/uL MPV (7.0-11.0) fl Neut % (Auto) (50.0-68.0) % Lymph % (Auto) (22.0-35.0) % [place] % (Auto) (1.0-6.0) % Eos % (Auto) (1.5-5.0) % Baso % (Auto) (0.0-3.0) % Lymph # (Auto) (1.2-3.4) [place] # (Auto) (0.1-0.6) Eos # (Auto) (0.0-0.7) Baso # (Auto) (0.0-2.0) K/mm3 Absolute Neuts (auto) (1.4-6.5) pCO2 (35-45) mm/Hg pO2 (80-100) mm/Hg HCO3 (21-28) mmol/L ABG pH (7.35-7.45) ABG Total CO2 (22-28) mmol.L ABG O2 Saturation (95-98) % ABG O2 Content (15-23) ML/dl ABG Base Excess (-2.0-3.0) mmol/L ABG Hemoglobin (11.7-17.4) g/dL ABG Carboxyhemoglobin (0.5-1.5) % POC ABG HHb (Measured) (0-5) % ABG Methemoglobin (0.0-3.0) % ABG O2 Capacity (16-24) mL/dl Hgb O2 Saturation (95.0-98.0) % FiO2 % Sodium (132-148) mmol/L Potassium (3.6-5.0) mmol/L Chloride (98-107) mmol/L Carbon Dioxide (21-33) mmol/L Anion Gap (10-20) BUN (7-21) mg/dL Creatinine (0.7-1.2) mg/dl Est GFR ( Amer) Est GFR (Non-Af Amer) POC Glucose (mg/dL) 222 H (65-110) mg/dL Random Glucose (70-110) mg/dL Calcium (8.4-10.5) mg/dL Total Bilirubin (0.2-1.3) mg/dL AST (14-36) U/L ALT (7-56) U/L Alkaline Phosphatase (38-126) U/L Total Protein (5.8-8.3) g/dL Albumin (3.0-4.8) g/dL Globulin gm/dL Albumin/Globulin Ratio (1.1-1.8) Laboratory Results - last 24 hr 08/07/18 08/07/18 08/07/18 08:00 10:56 16:21 WBC RBC Hgb Hct MCV MCH MCHC RDW Plt Count MPV Neut % (Auto) Lymph % (Auto) [place] % (Auto) Eos % (Auto) Baso % (Auto) Lymph # (Auto) [place] # (Auto) Eos # (Auto) Baso # (Auto) Absolute Neuts (auto) pCO2 pO2 HCO3 ABG pH ABG Total CO2 ABG O2 Saturation ABG O2 Content ABG Base Excess ABG Hemoglobin ABG Carboxyhemoglobin POC ABG HHb (Measured) ABG Methemoglobin ABG O2 Capacity Hgb O2 Saturation FiO2 Sodium Potassium Chloride Carbon Dioxide Anion Gap BUN Creatinine Est GFR ( Amer) Est GFR (Non-Af Amer) POC Glucose (mg/dL) 222 H 255 H 256 H Random Glucose Calcium Total Bilirubin AST ALT Alkaline Phosphatase Total Protein Albumin Globulin Albumin/Globulin Ratio 08/07/18 08/08/18 08/08/18 21:52 01:55 05:50 WBC RBC Hgb Hct MCV MCH MCHC RDW Plt Count MPV Neut % (Auto) Lymph % (Auto) [place] % (Auto) Eos % (Auto) Baso % (Auto) Lymph # (Auto) [place] # (Auto) Eos # (Auto) Baso # (Auto) Absolute Neuts (auto) pCO2 32 L pO2 291.0 H HCO3 26.7 ABG pH 7.53 H ABG Total CO2 27.7 ABG O2 Saturation 100.2 H ABG O2 Content 16.5 ABG Base Excess 4.2 H ABG Hemoglobin 11.5 L ABG Carboxyhemoglobin 1.7 H POC ABG HHb (Measured) -0.2 L ABG Methemoglobin 1.2 ABG O2 Capacity 16.5 Hgb O2 Saturation 97.2 FiO2 60.0 Sodium Potassium Chloride Carbon Dioxide Anion Gap BUN Creatinine Est GFR ( Amer) Est GFR (Non-Af Amer) POC Glucose (mg/dL) 320 H 332 H Random Glucose Calcium Total Bilirubin AST ALT Alkaline Phosphatase Total Protein Albumin Globulin Albumin/Globulin Ratio 08/08/18 08/08/18 08/08/18 06:30 06:30 07:29 WBC 4.5 D RBC 4.07 Hgb 11.8 L Hct 35.4 L MCV 87.0 D MCH 29.0 MCHC 33.3 RDW 13.7 Plt Count 181 MPV 10.7 Neut % (Auto) 76.0 H Lymph % (Auto) 16.4 L [place] % (Auto) 7.6 H Eos % (Auto) 0.0 L Baso % (Auto) 0.0 Lymph # (Auto) 0.7 L [place] # (Auto) 0.3 Eos # (Auto) 0.0 Baso # (Auto) 0.00 Absolute Neuts (auto) 3.42 pCO2 pO2 HCO3 ABG pH ABG Total CO2 ABG O2 Saturation ABG O2 Content ABG Base Excess ABG Hemoglobin ABG Carboxyhemoglobin POC ABG HHb (Measured) ABG Methemoglobin ABG O2 Capacity Hgb O2 Saturation FiO2 Sodium 139 Potassium 3.9 Chloride 100 Carbon Dioxide 29 Anion Gap 15 BUN 33 H Creatinine 0.9 Est GFR ( Amer) > 60 Est GFR (Non-Af Amer) > 60 POC Glucose (mg/dL) 384 H Random Glucose 405 H* D Calcium 10.3 Total Bilirubin 0.8 AST 23 ALT 18 Alkaline Phosphatase 97 Total Protein 7.8 Albumin 4.1 Globulin 3.7 Albumin/Globulin Ratio 1.1 08/08/18 10:37 WBC RBC Hgb Hct MCV MCH MCHC RDW Plt Count MPV Neut % (Auto) Lymph % (Auto) [place] % (Auto) Eos % (Auto) Baso % (Auto) Lymph # (Auto) [place] # (Auto) Eos # (Auto) Baso # (Auto) Absolute Neuts (auto) pCO2 pO2 HCO3 ABG pH ABG Total CO2 ABG O2 Saturation ABG O2 Content ABG Base Excess ABG Hemoglobin ABG Carboxyhemoglobin POC ABG HHb (Measured) ABG Methemoglobin ABG O2 Capacity Hgb O2 Saturation FiO2 Sodium Potassium Chloride Carbon Dioxide Anion Gap BUN Creatinine Est GFR ( Amer) Est GFR (Non-Af Amer) POC Glucose (mg/dL) 372 H Random Glucose Calcium Total Bilirubin AST ALT Alkaline Phosphatase Total Protein Albumin Globulin Albumin/Globulin Ratio Radiology Impressions: Radiology Impressions Chest X-Ray 08/08/18 05:00 IMPRESSION: The lungs are clear. The previously seen infiltrates in the right upper lobe have resolved. The endotracheal and nasogastric tubes are unchanged. Fingerstick Blood Sugar Results: 372 Critical Care Progress Note - Nutrition Nutrition: Nutrition Category Date Time Status NPO Diet [DIET] Diets 08/07/18 Breakfast Ordered Assessment/Plan - Assessment and Plan (Free Text) Assessment: Pt is a 78 yo female with a PMH of COPD, HTN, CAD, DM, and Alzheimer's dementia admitted to the ICU for hypercapneic respiratory failure secondary to acute on c hronic COPD exacerbation, with respiratory alkalosis, pt is intubated at this time. Plan: Neuro - Has h/o Alzheimer's dementia at baseline - Monitor for change in neuro status Cardio - RRR, BP stable, No LE edema - Troponin negative, BNP 2160 - ECHO from 04/2018 showed EF 70%, RVSP 27, moderate LVH - Maintain MAP>65 - Monitor for s/sx of worsening hemodynamic compromise Pulm - Vent settings: 40/5/12/400 - wean as per protocol - Maintain O2 saturation >90%, HOB to 30 degrees - Conservative fluid management, Maintain oral hygiene - Fentanyl and Precedex - Daily ABG and CXR, Daily sedation and weaning trials - solu medrol 20 q12 - Continue duonebs, pulmicort, brovana for COPD exacerbation GI - will start feeding today, dietary consult Renal - BUN/Cr stable (22/1.0) - Monitor I/O's - Replete electrolytes as needed - Maintain euvolemia Endocrine - High dose sliding scale for DM/hyperglycemia Heme/onc - H/H stable - Hgb 11.8, INR 1.05 - Has h/o anemia of chronic disease - Daily CBC for H/H - monitor for s/sx of hemodynamic compromise ID - Afebrile, no leukocytosis - CXR shows possible infiltrate - Treated with azithromycin and ceftriaxone for PNA coverage DVT/GI PPX: Lovenox/Protonix Full code Monitor in MICU Pt seen, examined, assessment and plan discussed with Dr Yovanny Warren PGY1 - Date & Time Date: 08/08/18 Time: 08:20 <Gilbert Hairston - Last Filed: 08/08/18 11:58> CCU Objective - Vital Signs / Intake & Output Vital Signs (Last 4 hours): Vital Signs Pulse BP 08/08/18 11:44 131/55 L 08/08/18 09:54 66 152/73 H 08/08/18 09:53 66 152/73 H Intake and Output (Last 8hrs): Intake & Output 08/07/18 08/08/18 08/08/18 22:59 06:59 14:59 Intake Total 212 272 20 Output Total 750 Balance 212 -478 20 Intake: IV 212 272 20 Left Wrist 50 fentanyl 36 precedex 106 Output: Urine 750 Urethral (Hopkins) 750 Other: # Voids Urethral (Hopkins) 850 - Medications Active Medications: Active Medications Generic Name Dose Route Start Last Admin Trade Name Freq PRN Reason Stop Dose Admin Albuterol/Ipratropium 3 ml 08/07/18 07:30 08/08/18 11:31 Duoneb 3 Mg/0.5 Mg (3 Ml) Ud IH 3 ml [id number] YASIR Administration Amlodipine Besylate 10 mg 08/07/18 11:30 08/08/18 09:54 Norvasc PO 10 mg DAILY YASIR Administration Arformoterol Tartrate 15 mcg 08/07/18 08:00 08/08/18 07:39 Brovana IH 15 mcg [id number] YASIR Administration Aspirin 81 mg 08/07/18 11:30 08/08/18 09:54 Ecotrin PO 81 mg DAILY YASIR Administration Brimonidine Tartrate 1 drop 08/07/18 11:30 08/08/18 11:42 Alphagan P 0.15% Opht OU 1 drop Q8H YASIR Administration Budesonide 0.25 mg 08/07/18 08:00 08/08/18 07:40 Pulmicort Respules IH 0.25 mg [id number] YASIR Administration Clopidogrel Bisulfate 75 mg 08/07/18 11:30 08/08/18 09:54 Plavix PO 75 mg DAILY YASIR Administration Enoxaparin Sodium 40 mg 08/07/18 10:00 08/08/18 09:53 Lovenox SC 40 mg DAILY YASIR Administration Protocol Furosemide 20 mg 08/08/18 10:30 08/08/18 11:44 Lasix IV 20 mg Q12H YASIR Administration Azithromycin 250 mg/ Sodium 250 mls @ 167 mls/hr 08/07/18 10:00 08/08/18 10:00 Chloride IVPB 167 mls/hr DAILY YASIR Administration Protocol Dexmedetomidine HCl 400 mcg in 100 mls @ 3.534 mls/hr 08/07/18 09:35 08/08/18 09:38 Precedex 400mcg/100ml IV 0.2 mcg/kg/hr .Q24H PRN 3.534 mls/hr Sedation Titration Protocol 0.2 MCG/KG/HR Fentanyl Citrate 1,000 mcg in 100 mls @ 2 mls/hr 08/07/18 09:38 08/08/18 07:33 Fentanyl Citrate/Sodium Chloride 1 Mg/100 Ml IV 0 mcg/hr .Q24H PRN 0 mls/hr TITRATE PER MD ORDER Titration Protocol 20 MCG/HR Ceftriaxone Sodium 1 gm in 100 mls @ 100 mls/hr 08/07/18 10:00 08/08/18 09:58 Rocephin 1 Gram Ivpb IVPB 100 mls/hr DAILY YASIR Administration Protocol Insulin Detemir 20 unit 08/08/18 09:30 08/08/18 10:38 Levemir SC 20 units Q12H YASIR Administration Insulin Human Regular 0 units 08/07/18 11:30 08/08/18 07:54 Humulin R High SC 12 unit ACHS YASIR Administration Protocol Latanoprost 0 ml 08/07/18 22:00 08/07/18 21:13 Xalatan Opht OU 2.5 ml HS YASIR Administration Lisinopril 20 mg 08/07/18 18:00 08/08/18 09:54 Zestril PO 20 mg BID YASIR Administration Methylprednisolone 20 mg 08/08/18 10:00 08/08/18 09:52 Solu-Medrol IVP 20 mg Q12 YASIR Administration Metoprolol Tartrate 100 mg 08/07/18 18:00 08/08/18 09:53 Lopressor PO 100 mg BID YASIR Administration Pantoprazole Sodium 40 mg 08/07/18 10:00 08/08/18 09:52 Protonix Inj IVP 40 mg DAILY YASIR Administration Potassium Chloride 20 meq 08/08/18 18:00 Potassium Chloride Oral Soln NG BID YASIR Timolol Maleate 1 drop 08/07/18 18:00 08/08/18 09:55 Timoptic 0.5% Ophth Soln OU 1 drop BID YASIR Administration - Patient Studies Lab Studies: Microbiology Studies 08/07/18 06:23 Urine Culture - Final Urine,Clean Catch No Growth (<1,000 CFU/ML) 08/07/18 02:30 Blood Culture - Preliminary Blood-Venous NO GROWTH AFTER 24 HOURS 08/07/18 02:05 Blood Culture - Preliminary Blood-Venous NO GROWTH AFTER 24 HOURS Lab Studies 08/08/18 08/08/18 08/08/18 Range/Units 10:37 07:29 06:30 WBC (4.5-11.0) 10^3/uL RBC (3.5-6.1) 10^6/uL Hgb (12.0-16.0) g/dL Hct (36.0-48.0) % MCV (80.0-105.0) fl MCH (25.0-35.0) pg MCHC (31.0-37.0) g/dl RDW (11.5-14.5) % Plt Count (120.0-450.0) 10^3/uL MPV (7.0-11.0) fl Neut % (Auto) (50.0-68.0) % Lymph % (Auto) (22.0-35.0) % [place] % (Auto) (1.0-6.0) % Eos % (Auto) (1.5-5.0) % Baso % (Auto) (0.0-3.0) % Lymph # (Auto) (1.2-3.4) [place] # (Auto) (0.1-0.6) Eos # (Auto) (0.0-0.7) Baso # (Auto) (0.0-2.0) K/mm3 Absolute Neuts (auto) (1.4-6.5) pCO2 (35-45) mm/Hg pO2 (80-100) mm/Hg HCO3 (21-28) mmol/L ABG pH (7.35-7.45) ABG Total CO2 (22-28) mmol.L ABG O2 Saturation (95-98) % ABG O2 Content (15-23) ML/dl ABG Base Excess (-2.0-3.0) mmol/L ABG Hemoglobin (11.7-17.4) g/dL ABG Carboxyhemoglobin (0.5-1.5) % POC ABG HHb (Measured) (0-5) % ABG Methemoglobin (0.0-3.0) % ABG O2 Capacity (16-24) mL/dl Hgb O2 Saturation (95.0-98.0) % FiO2 % Sodium 139 (132-148) mmol/L Potassium 3.9 (3.6-5.0) mmol/L Chloride 100 (98-107) mmol/L Carbon Dioxide 29 (21-33) mmol/L Anion Gap 15 (10-20) BUN 33 H (7-21) mg/dL Creatinine 0.9 (0.7-1.2) mg/dl Est GFR ( Amer) > 60 Est GFR (Non-Af Amer) > 60 POC Glucose (mg/dL) 372 H 384 H (65-110) mg/dL Random Glucose 405 H* D (70-110) mg/dL Calcium 10.3 (8.4-10.5) mg/dL Total Bilirubin 0.8 (0.2-1.3) mg/dL AST 23 (14-36) U/L ALT 18 (7-56) U/L Alkaline Phosphatase 97 (38-126) U/L Total Protein 7.8 (5.8-8.3) g/dL Albumin 4.1 (3.0-4.8) g/dL Globulin 3.7 gm/dL Albumin/Globulin Ratio 1.1 (1.1-1.8) 08/08/18 08/08/18 08/08/18 Range/Units 06:30 05:50 01:55 WBC 4.5 D (4.5-11.0) 10^3/uL RBC 4.07 (3.5-6.1) 10^6/uL Hgb 11.8 L (12.0-16.0) g/dL Hct 35.4 L (36.0-48.0) % MCV 87.0 D (80.0-105.0) fl MCH 29.0 (25.0-35.0) pg MCHC 33.3 (31.0-37.0) g/dl RDW 13.7 (11.5-14.5) % Plt Count 181 (120.0-450.0) 10^3/uL MPV 10.7 (7.0-11.0) fl Neut % (Auto) 76.0 H (50.0-68.0) % Lymph % (Auto) 16.4 L (22.0-35.0) % [place] % (Auto) 7.6 H (1.0-6.0) % Eos % (Auto) 0.0 L (1.5-5.0) % Baso % (Auto) 0.0 (0.0-3.0) % Lymph # (Auto) 0.7 L (1.2-3.4) [place] # (Auto) 0.3 (0.1-0.6) Eos # (Auto) 0.0 (0.0-0.7) Baso # (Auto) 0.00 (0.0-2.0) K/mm3 Absolute Neuts (auto) 3.42 (1.4-6.5) pCO2 32 L (35-45) mm/Hg pO2 291.0 H (80-100) mm/Hg HCO3 26.7 (21-28) mmol/L ABG pH 7.53 H (7.35-7.45) ABG Total CO2 27.7 (22-28) mmol.L ABG O2 Saturation 100.2 H (95-98) % ABG O2 Content 16.5 (15-23) ML/dl ABG Base Excess 4.2 H (-2.0-3.0) mmol/L ABG Hemoglobin 11.5 L (11.7-17.4) g/dL ABG Carboxyhemoglobin 1.7 H (0.5-1.5) % POC ABG HHb (Measured) -0.2 L (0-5) % ABG Methemoglobin 1.2 (0.0-3.0) % ABG O2 Capacity 16.5 (16-24) mL/dl Hgb O2 Saturation 97.2 (95.0-98.0) % FiO2 60.0 % Sodium (132-148) mmol/L Potassium (3.6-5.0) mmol/L Chloride (98-107) mmol/L Carbon Dioxide (21-33) mmol/L Anion Gap (10-20) BUN (7-21) mg/dL Creatinine (0.7-1.2) mg/dl Est GFR ( Amer) Est GFR (Non-Af Amer) POC Glucose (mg/dL) 332 H (65-110) mg/dL Random Glucose (70-110) mg/dL Calcium (8.4-10.5) mg/dL Total Bilirubin (0.2-1.3) mg/dL AST (14-36) U/L ALT (7-56) U/L Alkaline Phosphatase (38-126) U/L Total Protein (5.8-8.3) g/dL Albumin (3.0-4.8) g/dL Globulin gm/dL Albumin/Globulin Ratio (1.1-1.8) 08/07/18 08/07/18 08/07/18 Range/Units 21:52 16:21 10:56 WBC (4.5-11.0) 10^3/uL RBC (3.5-6.1) 10^6/uL Hgb (12.0-16.0) g/dL Hct (36.0-48.0) % MCV (80.0-105.0) fl MCH (25.0-35.0) pg MCHC (31.0-37.0) g/dl RDW (11.5-14.5) % Plt Count (120.0-450.0) 10^3/uL MPV (7.0-11.0) fl Neut % (Auto) (50.0-68.0) % Lymph % (Auto) (22.0-35.0) % [place] % (Auto) (1.0-6.0) % Eos % (Auto) (1.5-5.0) % Baso % (Auto) (0.0-3.0) % Lymph # (Auto) (1.2-3.4) [place] # (Auto) (0.1-0.6) Eos # (Auto) (0.0-0.7) Baso # (Auto) (0.0-2.0) K/mm3 Absolute Neuts (auto) (1.4-6.5) pCO2 (35-45) mm/Hg pO2 (80-100) mm/Hg HCO3 (21-28) mmol/L ABG pH (7.35-7.45) ABG Total CO2 (22-28) mmol.L ABG O2 Saturation (95-98) % ABG O2 Content (15-23) ML/dl ABG Base Excess (-2.0-3.0) mmol/L ABG Hemoglobin (11.7-17.4) g/dL ABG Carboxyhemoglobin (0.5-1.5) % POC ABG HHb (Measured) (0-5) % ABG Methemoglobin (0.0-3.0) % ABG O2 Capacity (16-24) mL/dl Hgb O2 Saturation (95.0-98.0) % FiO2 % Sodium (132-148) mmol/L Potassium (3.6-5.0) mmol/L Chloride (98-107) mmol/L Carbon Dioxide (21-33) mmol/L Anion Gap (10-20) BUN (7-21) mg/dL Creatinine (0.7-1.2) mg/dl Est GFR ( Amer) Est GFR (Non-Af Amer) POC Glucose (mg/dL) 320 H 256 H 255 H (65-110) mg/dL Random Glucose (70-110) mg/dL Calcium (8.4-10.5) mg/dL Total Bilirubin (0.2-1.3) mg/dL AST (14-36) U/L ALT (7-56) U/L Alkaline Phosphatase (38-126) U/L Total Protein (5.8-8.3) g/dL Albumin (3.0-4.8) g/dL Globulin gm/dL Albumin/Globulin Ratio (1.1-1.8) 08/07/18 Range/Units 08:00 WBC (4.5-11.0) 10^3/uL RBC (3.5-6.1) 10^6/uL Hgb (12.0-16.0) g/dL Hct (36.0-48.0) % MCV (80.0-105.0) fl MCH (25.0-35.0) pg MCHC (31.0-37.0) g/dl RDW (11.5-14.5) % Plt Count (120.0-450.0) 10^3/uL MPV (7.0-11.0) fl Neut % (Auto) (50.0-68.0) % Lymph % (Auto) (22.0-35.0) % [place] % (Auto) (1.0-6.0) % Eos % (Auto) (1.5-5.0) % Baso % (Auto) (0.0-3.0) % Lymph # (Auto) (1.2-3.4) [place] # (Auto) (0.1-0.6) Eos # (Auto) (0.0-0.7) Baso # (Auto) (0.0-2.0) K/mm3 Absolute Neuts (auto) (1.4-6.5) pCO2 (35-45) mm/Hg pO2 (80-100) mm/Hg HCO3 (21-28) mmol/L ABG pH (7.35-7.45) ABG Total CO2 (22-28) mmol.L ABG O2 Saturation (95-98) % ABG O2 Content (15-23) ML/dl ABG Base Excess (-2.0-3.0) mmol/L ABG Hemoglobin (11.7-17.4) g/dL ABG Carboxyhemoglobin (0.5-1.5) % POC ABG HHb (Measured) (0-5) % ABG Methemoglobin (0.0-3.0) % ABG O2 Capacity (16-24) mL/dl Hgb O2 Saturation (95.0-98.0) % FiO2 % Sodium (132-148) mmol/L Potassium (3.6-5.0) mmol/L Chloride (98-107) mmol/L Carbon Dioxide (21-33) mmol/L Anion Gap (10-20) BUN (7-21) mg/dL Creatinine (0.7-1.2) mg/dl Est GFR ( Amer) Est GFR (Non-Af Amer) POC Glucose (mg/dL) 222 H (65-110) mg/dL Random Glucose (70-110) mg/dL Calcium (8.4-10.5) mg/dL Total Bilirubin (0.2-1.3) mg/dL AST (14-36) U/L ALT (7-56) U/L Alkaline Phosphatase (38-126) U/L Total Protein (5.8-8.3) g/dL Albumin (3.0-4.8) g/dL Globulin gm/dL Albumin/Globulin Ratio (1.1-1.8) Laboratory Results - last 24 hr 08/07/18 08/07/18 08/07/18 08:00 10:56 16:21 WBC RBC Hgb Hct MCV MCH MCHC RDW Plt Count MPV Neut % (Auto) Lymph % (Auto) [place] % (Auto) Eos % (Auto) Baso % (Auto) Lymph # (Auto) [place] # (Auto) Eos # (Auto) Baso # (Auto) Absolute Neuts (auto) pCO2 pO2 HCO3 ABG pH ABG Total CO2 ABG O2 Saturation ABG O2 Content ABG Base Excess ABG Hemoglobin ABG Carboxyhemoglobin POC ABG HHb (Measured) ABG Methemoglobin ABG O2 Capacity Hgb O2 Saturation FiO2 Sodium Potassium Chloride Carbon Dioxide Anion Gap BUN Creatinine Est GFR ( Amer) Est GFR (Non-Af Amer) POC Glucose (mg/dL) 222 H 255 H 256 H Random Glucose Calcium Total Bilirubin AST ALT Alkaline Phosphatase Total Protein Albumin Globulin Albumin/Globulin Ratio 08/07/18 08/08/18 08/08/18 21:52 01:55 05:50 WBC RBC Hgb Hct MCV MCH MCHC RDW Plt Count MPV Neut % (Auto) Lymph % (Auto) [place] % (Auto) Eos % (Auto) Baso % (Auto) Lymph # (Auto) [place] # (Auto) Eos # (Auto) Baso # (Auto) Absolute Neuts (auto) pCO2 32 L pO2 291.0 H HCO3 26.7 ABG pH 7.53 H ABG Total CO2 27.7 ABG O2 Saturation 100.2 H ABG O2 Content 16.5 ABG Base Excess 4.2 H ABG Hemoglobin 11.5 L ABG Carboxyhemoglobin 1.7 H POC ABG HHb (Measured) -0.2 L ABG Methemoglobin 1.2 ABG O2 Capacity 16.5 Hgb O2 Saturation 97.2 FiO2 60.0 Sodium Potassium Chloride Carbon Dioxide Anion Gap BUN Creatinine Est GFR ( Amer) Est GFR (Non-Af Amer) POC Glucose (mg/dL) 320 H 332 H Random Glucose Calcium Total Bilirubin AST ALT Alkaline Phosphatase Total Protein Albumin Globulin Albumin/Globulin Ratio 08/08/18 08/08/18 08/08/18 06:30 06:30 07:29 WBC 4.5 D RBC 4.07 Hgb 11.8 L Hct 35.4 L MCV 87.0 D MCH 29.0 MCHC 33.3 RDW 13.7 Plt Count 181 MPV 10.7 Neut % (Auto) 76.0 H Lymph % (Auto) 16.4 L [place] % (Auto) 7.6 H Eos % (Auto) 0.0 L Baso % (Auto) 0.0 Lymph # (Auto) 0.7 L [place] # (Auto) 0.3 Eos # (Auto) 0.0 Baso # (Auto) 0.00 Absolute Neuts (auto) 3.42 pCO2 pO2 HCO3 ABG pH ABG Total CO2 ABG O2 Saturation ABG O2 Content ABG Base Excess ABG Hemoglobin ABG Carboxyhemoglobin POC ABG HHb (Measured) ABG Methemoglobin ABG O2 Capacity Hgb O2 Saturation FiO2 Sodium 139 Potassium 3.9 Chloride 100 Carbon Dioxide 29 Anion Gap 15 BUN 33 H Creatinine 0.9 Est GFR ( Amer) > 60 Est GFR (Non-Af Amer) > 60 POC Glucose (mg/dL) 384 H Random Glucose 405 H* D Calcium 10.3 Total Bilirubin 0.8 AST 23 ALT 18 Alkaline Phosphatase 97 Total Protein 7.8 Albumin 4.1 Globulin 3.7 Albumin/Globulin Ratio 1.1 08/08/18 10:37 WBC RBC Hgb Hct MCV MCH MCHC RDW Plt Count MPV Neut % (Auto) Lymph % (Auto) [place] % (Auto) Eos % (Auto) Baso % (Auto) Lymph # (Auto) [place] # (Auto) Eos # (Auto) Baso # (Auto) Absolute Neuts (auto) pCO2 pO2 HCO3 ABG pH ABG Total CO2 ABG O2 Saturation ABG O2 Content ABG Base Excess ABG Hemoglobin ABG Carboxyhemoglobin POC ABG HHb (Measured) ABG Methemoglobin ABG O2 Capacity Hgb O2 Saturation FiO2 Sodium Potassium Chloride Carbon Dioxide Anion Gap BUN Creatinine Est GFR ( Amer) Est GFR (Non-Af Amer) POC Glucose (mg/dL) 372 H Random Glucose Calcium Total Bilirubin AST ALT Alkaline Phosphatase Total Protein Albumin Globulin Albumin/Globulin Ratio Radiology Impressions: Radiology Impressions Chest X-Ray 08/08/18 05:00 IMPRESSION: The lungs are clear. The previously seen infiltrates in the right upper lobe have resolved. The endotracheal and nasogastric tubes are unchanged. Critical Care Progress Note - Nutrition Nutrition: Nutrition Category Date Time Status NPO Diet [DIET] Diets 08/07/18 Breakfast Ordered Assessment/Plan - Assessment and Plan (Free Text) Plan: Patient seen and examined on rounds with resident, agree with note with following additions/exceptions: Patient is 78yo female with PMHx of COPD, HTN, CAD, DM, and Alzheimer's dementia admitted to the ICU for hypercapneic respiratory, COPD exacerbation Currently intubated,off sedation, afebrile, HD stable, in NAD This morning placed on CPAP trial, failed, did not initiate own breaths, put back on PRVC, and precedex Labs, imaging, chart reviewed COPD exacerbation Hypercapnic resp failure rule out PNA CAD DM Alzheimers disease HTN Recommend: - cont with vent support, low tidal vol ventilation, duonebs PRN, daily CPAP trial, ABG, CXR - follow up cultures, BCx, UCx, Procal, Urine Lg, Strep - Rocephine Azithro - BP control - ASA, Plavix, Statin - FS control - monitor I/Os - start feeds - resume home dose of Levemir - GI ppx - DVT ppx - Monitor in MICU Critical care time 30 minutes
--- NOTE | 2018-08-08 12:46 | PN ---
DATE: 08/08/2018 CRITICAL CARE PROGRESS NOTE SUBJECTIVE: This 78-year-old female was examined at her bedside in bed #4 of the Critical Care Unit at the [facility] on the morning of Wednesday, August 08, 2018. Present for this interview was her nurse, Lubna Ash, registered nurse. I have also reviewed this case in detail with plastics factory worker, Gilbert Hairston, medical physician. The patient remains intubated. She failed an attempt earlier today at weaning her off the vent. The patient will be started on NG tube feedings and receive insulins as adjusted. There were no reports of fever, chills, chest pain or hemoptysis and the patient is being sedated while on the ventilator. OBJECTIVE: VITAL SIGNS: On physical exam today, she is in a normal sinus rhythm on bus monitor, temperature 98.1, pulse 70, blood pressure 152/73 with a pulse ox of 100% on 60% FIO2. HEENT: Head: Normocephalic, atraumatic. Eyes: No icterus. Ears: Clear. Throat: Noninjected. NECK: Supple. HEART: S1 and S2. LUNGS: With occasional rhonchi that cleared. ABDOMEN: Soft. EXTREMITIES: No edema. SKIN: Without rash. NEUROLOGICAL: Sedated. PSYCHOLOGICAL: Cannot be assessed. VASCULAR: Legs warm to touch. LABORATORY DATA: White count 4500, hemoglobin 11.8, hematocrit 35.4, platelets 181,000. PT/INR 1.05, PTT 31.0. Sodium 139, K 3.9, chloride 100, bicarb 29, BUN 33, creatinine 0.9, random blood sugar 405 with a calcium of 10.3, bilirubin 0.8, AST 23, ALT 18 and alk phos 97, albumin 4.1. Blood culture show no growth at 24 hours and urine culture show no growth to date. IMPRESSION: A 78-year-old female with respiratory failure in the setting of chronic CO2 narcosis in a patient who refuses to wear continuous positive airway pressure/bilevel positive airway pressure and comorbidities of glaucoma, chronic obstructive pulmonary disease, insulin-dependent diabetes mellitus, stable atherosclerotic heart disease, hypertension, anemia of chronic disease, degenerative arthritis and glaucoma. PLAN: As discussed with nursing and Dr. Hairston will be to continue glaucoma eyedrops as labeled. She will continue on Zithromax IV, Rocephin IV, inhalational Brovana and Duonebulizer. She is being sedated while on the ventilator and will continue on Levemir 20 units subcutaneously every 12 hours and regular Humulin R insulin protocol coverage a.c. mealtime and bedtime while being started on NG tube feeds with Glycerna. She will continue on Lopressor, Lovenox, Norvasc, Plavix, IV Protonix, IV Solu-Medrol and Zestril. She will continue on Lasix and liquid potassium for CHF control. She will have a comprehensive metabolic CBC in the a.m. As discussed with nursing, she will continue on dietary tube feeds, skin care precautions, fall precautions and heel cradle. Greater than 60 minutes was spent in the critical care management and review of orders with nursing and plastics factory worker today. This case was reviewed with her daughter. All questions were answered. Mikayla Rodriguez MD MTDLeann
--- NOTE | 2018-08-08 13:17 | RAD ---
Date of service: 08/08/2018 HISTORY: NG tube placement (Coreflow) COMPARISON: No prior. FINDINGS: LUNGS: No active pulmonary disease. PLEURA: No significant pleural effusion identified, no pneumothorax apparent. CARDIOVASCULAR: Aortic calcification Normal cardiac size. No pulmonary vascular congestion. OSSEOUS STRUCTURES: No significant abnormalities. VISUALIZED UPPER ABDOMEN: Normal. OTHER FINDINGS: Endotracheal tube in satisfactory position IMPRESSION: There are 2 separate nasogastric tubes in the mid to distal stomach. One of these tubes is folded 180 degrees distally.
[2018-08-08 15:09] LABS: ARTERIAL BLOOD GAS HCO3 30.5 mmol/L (21-28); ARTERIAL BLOOD GAS HEMOGLOBIN 10.8 g/dL (11.7-17.4); ARTERIAL BLOOD GAS O2 CAPACITY 15.1 mL/dl (16-24); ARTERIAL BLOOD GAS O2 CONTENT 15.1 ML/dl (15-23); ARTERIAL BLOOD GAS O2 SAT 100.2 % (95-98); ARTERIAL BLOOD GAS PCO2 54 mm/Hg (35-45); ARTERIAL BLOOD GAS PH 7.36 (7.35-7.45); ARTERIAL BLOOD GAS TCO2 32.2 mmol.L (22-28)
--- NOTE | 2018-08-08 16:18 | CP.PCM.PN ---
Subjective - Date & Time of Evaluation Date of Evaluation: 08/08/18 Time of Evaluation: 16:17 - Subjective Subjective: Patient placed on CPAP trial, off sedation, awake, alert, following commands, RSBI 40s, doing well for 2 hours Subsequently extubated Objective - Vital Signs/Intake and Output Vital Signs (last 24 hours): Temp Pulse Resp BP Pulse Ox 98.1 F 68 18 131/55 L 100 08/08/18 06:32 08/08/18 14:00 08/07/18 09:00 08/08/18 11:44 08/08/18 06:32 Intake and Output: 08/08/18 08/08/18 06:59 18:59 Intake Total 367 20 Output Total 750 Balance -383 20 - Medications Medications: Current Medications Albuterol/Ipratropium (Duoneb 3 Mg/0.5 Mg (3 Ml) Ud) 3 ml IH [id number] [facility] Last Admin: 08/08/18 15:27 Dose: 3 ml Amlodipine Besylate (Norvasc) 10 mg PO DAILY [facility] Last Admin: 08/08/18 09:54 Dose: 10 mg Arformoterol Tartrate (Brovana) 15 mcg IH [id number] [facility] Last Admin: 08/08/18 07:39 Dose: 15 mcg Aspirin (Ecotrin) 81 mg PO DAILY [facility] Last Admin: 08/08/18 09:54 Dose: 81 mg Brimonidine Tartrate (Alphagan P 0.15% Opht) 1 drop OU Q8H [facility] Last Admin: 08/08/18 11:42 Dose: 1 drop Budesonide (Pulmicort Respules) 0.25 mg IH [id number] [facility] Last Admin: 08/08/18 07:40 Dose: 0.25 mg Clopidogrel Bisulfate (Plavix) 75 mg PO DAILY [facility] Last Admin: 08/08/18 09:54 Dose: 75 mg Enoxaparin Sodium (Lovenox) 40 mg SC DAILY [facility]; Protocol Last Admin: 08/08/18 09:53 Dose: 40 mg Furosemide (Lasix) 20 mg IV Q12H [facility] Last Admin: 08/08/18 11:44 Dose: 20 mg Azithromycin 250 mg/ Sodium (Chloride) 250 mls @ 167 mls/hr IVPB DAILY [facility]; Protocol Last Admin: 08/08/18 10:00 Dose: 167 mls/hr Dexmedetomidine HCl (Precedex 400mcg/100ml) 400 mcg in 100 mls @ 3.534 mls/hr IV .Q24H PRN; Protocol PRN Reason: Sedation Last Titration: 08/08/18 09:38 Dose: 0.2 mcg/kg/hr, 3.534 mls/hr Fentanyl Citrate (Fentanyl Citrate/Sodium Chloride 1 Mg/100 Ml) 1,000 mcg in 100 mls @ 2 mls/hr IV .Q24H PRN; Protocol PRN Reason: TITRATE PER MD ORDER Last Titration: 08/08/18 07:33 Dose: 0 mcg/hr, 0 mls/hr Ceftriaxone Sodium (Rocephin 1 Gram Ivpb) 1 gm in 100 mls @ 100 mls/hr IVPB DAILY [facility]; Protocol Last Admin: 08/08/18 09:58 Dose: 100 mls/hr Insulin Detemir (Levemir) 20 unit SC Q12H [facility] Last Admin: 08/08/18 10:38 Dose: 20 units Insulin Human Regular (Humulin R High) 0 units SC ACHS [facility]; Protocol Last Admin: 08/08/18 12:57 Dose: 12 unit Latanoprost (Xalatan Opht) 0 ml OU HS [facility] Last Admin: 08/07/18 21:13 Dose: 2.5 ml Lisinopril (Zestril) 20 mg PO BID [facility] Last Admin: 08/08/18 09:54 Dose: 20 mg Methylprednisolone (Solu-Medrol) 20 mg IVP Q12 [facility] Last Admin: 08/08/18 09:52 Dose: 20 mg Metoprolol Tartrate (Lopressor) 100 mg PO BID [facility] Last Admin: 08/08/18 09:53 Dose: 100 mg Pantoprazole Sodium (Protonix Inj) 40 mg IVP DAILY [facility] Last Admin: 08/08/18 09:52 Dose: 40 mg Potassium Chloride (Potassium Chloride Oral Soln) 20 meq NG BID [facility] Timolol Maleate (Timoptic 0.5% Ophth Soln) 1 drop OU BID [facility] Last Admin: 08/08/18 09:55 Dose: 1 drop - Labs Labs: 08/08/18 06:30 08/08/18 06:30 PT 11.6 SECONDS (9.4-12.5) 08/07/18 02:05 INR 1.05 08/07/18 02:05 APTT 31.0 Seconds (26.9-38.3) 08/07/18 02:05
[2018-08-08] MEDS: Potassium Chloride 20 mEq/15 ml LIQ UD NG SCH (17:44)
--- NOTE | 2018-08-08 18:04 | HP ---
DATE OF EXAM: 08/07/2018 HISTORY OF PRESENT ILLNESS: This 78-year-old female was examined at her bedside in critical care unit bed #4 at the [facility] on the afternoon of 08/07/2018. This patient was admitted earlier this morning. This case has been reviewed in detail with trash truck driver Gilbert Hairston, medical physician. Ms. Bishop is a 78-year-old female who resides at [facility] in [place], [place]. 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 The patient's outpatient medications bed, anemia of chronic disease with iron-deficiency anemia. OUTPATIENT MEDICATIONS: Include ferrous gluconate, insulins, glaucoma eyedrops including Timoptic, latanoprost, Risperdal, potassium chloride, Lasix, Pepcid, Norvasc, Lopressor, Ecotrin, Plavix and dual nebulizer therapy with nasal O2 and BiPAP. On the morning of 08/07/2018. The nursing staff at the local detention noted the patient to be short of breath with altered mental status. She was sent to the [facility] ER where she was again noted to have CO2 narcosis because of her refusal to wear BiPAP and because of her respiratory insufficiency, she was intubated and transferred to the ICU. REVIEW OF SYSTEMS: GENERAL: At present she remains intubated and sedated and according to her EMR there were no reports on review of systems of fever or chills. HEENT: Head review, no headache or seizure. Eyes; no change in visual acuity, but chronic glaucoma. Ears; hearing loss. Throat; no swallowing difficulty. NECK: No stiffness. CARDIAC: Review as per HPI. PULMONARY: As per HPI. GASTROINTESTINAL: No hematemesis. No melena. GENITOURINARY: No dysuria. SKIN: No rash. VASCULAR: No reports of claudication. PSYCHOLOGIC: As per HPI. NEUROLOGIC: No knowledge of stroke. FAMILY HISTORY: Noncontributory. SOCIAL HISTORY: She is a current nondrinker, nonsmoker, non IV drug misuser. ALLERGIES: SHE HAS NO KNOWN ALLERGIES TO MEDICATION. PHYSICAL EXAMINATION: GENERAL: At the time of my interview, the patient was intubated. VITAL SIGNS: Temperature 99.5, respirations 19, pulse 76 and blood pressure 120/80 with pulse ox of 100% on an FIO2 of 40%. HEENT: Head; normocephalic, atraumatic. Eyes; no icterus. Ears; clear. Throat; with ET tube in place. NECK: Supple. HEART: S1, S2. LUNGS: No wheezing. ABDOMEN: Soft. EXTREMITIES: No edema. SKIN: Without rash. NEUROLOGIC: Sedated. VASCULAR: Legs warm to touch. PSYCHOLOGIC: Could not be assessed. LABORATORY DATA: Her labs show white count 8700, hemoglobin 11.4, hematocrit 34.3, platelets 214,000. PT/INR 1.05, PTT 31.0. Her blood gas prior to intubation had shown a pH 7.33, pCO2 73, pO2 107, bicarb 38.5, FIO2 of 40%. Sodium 139, K 4.9, chloride 97, bicarb 40, BUN 22, creatinine 1.0, random blood sugar 222, calcium 9.3. Magnesium 2.0. Bilirubin 0.3, AST 44, ALT 30 and alk phos 75. CPK 29 with troponin less than 0.01 with a BNP 2160. Urinalysis showed rare bacteria. EKG was reviewed and showed normal sinus rhythm with nonspecific ST-T wave changes. Chest x-ray was reviewed, it showed the patient intubated with endotracheal tube and nasogastric tube in satisfactory position with bilateral upper lobe infiltrates. No significant pleural effusion, no pneumothorax and nasogastric tube in satisfactory position. IMPRESSION: A 78-year-old female with respiratory insufficiency, exacerbation of chronic obstructive pulmonary disease and need for intubation secondary to shortness of breath, chronic hypercarbia in the setting of refusal to wear bilevel positive airway pressure and comorbidities as outlined above. PLAN: The plan is discussed with Dr. Hairston, trash truck driver will be to maintain this patient on ventilatory support. She will continue on her glaucoma eyedrops as outlined. She is ordered to receive Zithromax 250 mg IV daily, Brovana inhalational therapy every 12 hours, dual nebulizer therapy every 4 hours, and medications through her NG tube including Ecotrin, Lopressor, Norvasc, Plavix, and Zestril. She will continue on insulin coverage sedation with fentanyl and Precedex, she continues on IV Protonix, Pulmicort inhalational therapy, IV Rocephin, IV Solu-Medrol. As discussed with her nurses she will be continued on fall precautions, neuro checks, skin care air mattress and fall precautions. She remains n.p.o. She is ordered to have bedside physical therapy. Serial chest x-rays and labs and based on clinical progress extubation attempt will be entertained. Greater than 75 minutes was spent in the care management, review of labs, orders and x-rays and discussion of this patient with trash truck driver, Dr. Hairston, nursing and family. All questions were answered. Mikayla Rodriguez MD MTDD
[2018-08-08] MEDS: Latanoprost 2.5 ml Opht Soln OU SCH (22:24)
[2018-08-09] MEDS ORDERED: Insulin Regular 1 UNITS/0.01 ML ML SC ONE (02:10)
[2018-08-09] MEDS: Brimonidine 0.15% 50 DROP/5 ML BOTTLE OU SCH ×3 (03:43→21:36)
[2018-08-09] MEDS: Albuterol-Ipratrop 3 mg / 0.5 (3 ml) UD IH SCH ×5 (04:00→19:59)
[2018-08-09 06:49] LABS: HEMOGLOBIN 10.7 g/dL (12.0-16.0); LYMPH # 0.9 (1.2-3.4); LYMPH % 8.1 % (22.0-35.0); MEAN CELL VOLUME 89.2 fl (80.0-105.0); MEAN CORPUSCULAR HGB CONC 32.5 g/dl (31.0-37.0); MEAN PLATELET VOLUME 10.3 fl (7.0-11.0); MONO # 0.6 (0.1-0.6); MONO % 5.5 % (1.0-6.0); RBC 3.69 10^6/uL (3.5-6.1); RED CELL DISTRIBUTION WIDTH 13.8 % (11.5-14.5); WHITE BLOOD COUNT 10.8 10^3/uL (4.5-11.0)
[2018-08-09 06:56] LABS: ALB/GLOB RATIO 1.1 (1.1-1.8); ALBUMIN 3.7 g/dL (3.0-4.8); ALT/SGPT 12 U/L (7-56); AST/SGOT 31 U/L (14-36); BLOOD UREA NITROGEN 46 mg/dL (7-21); CALCIUM 9.4 mg/dL (8.4-10.5); GFR NON-AFRICAN AMERICAN > 60
[2018-08-09] MEDS: Arformoterol 15 mcg/2 ml Inh Sol IH SCH ×2 (07:32→19:59)
[2018-08-09] MEDS: Budesonide 0.25 mg/2 ml Inhal Susp UD IH SCH ×2 (07:34→20:00)
[2018-08-09] MEDS: Insulin Reg-HIGH-Coverage SC SCH ×4 (07:35→21:38)
[2018-08-09] MEDS: MethylPREDNISolone 40 mg Vial IVP SCH (09:03)
[2018-08-09] MEDS: Enoxaparin 40 mg Syringe SC SCH (09:04)
[2018-08-09] MEDS: cefTRIAXone 1 gm 1 GM/100 ML BAG IVPB SCH (09:04)
[2018-08-09] MEDS: Insulin Detemir 100 units/ml Vial (Levemir) SC SCH ×2 (09:05→21:39)
[2018-08-09] MEDS: Potassium Chloride 20 mEq/15 ml LIQ UD NG SCH ×2 (09:05→17:27)
[2018-08-09] MEDS: Azithromycin 250 MG in Sodium Chloride 0.9% 250 ML IVPB SCH (09:45)
--- NOTE | 2018-08-09 11:22 | CP.CCUPN ---
<Isidro Warren - Last Filed: 08/09/18 11:22> CCU Subjective - Physician Review Events Since Last Encounter (Free Text): 08/09/18 11:08 No acute events overnight Subjective (Free Text): 08/07/18 11:57 Pt seen and examined this morning at the bedside in the ICU. She is currently ventilated and in no significant respiratory distress. 08/08/18 11:06 Pt seen and examined, pt intubated during exam 08/09/18 11:08 Pt seen and examined, no new complains CCU Objective - Vital Signs / Intake & Output Vital Signs (Last 4 hours): Vital Signs Pulse BP 08/09/18 09:35 132/59 L 08/09/18 09:03 88 132/59 L 08/09/18 09:02 132/59 L Intake and Output (Last 8hrs): Intake & Output 08/08/18 08/09/18 08/09/18 22:59 06:59 14:59 Intake Total 440 500 Output Total 600 Balance 440 -100 Weight 155 lb Intake: IV 440 Left Wrist 400 Oral 500 Output: Urine 600 Urethral (Hopkins) 600 - Physical Exam Head: Positive for: Atraumatic, Normocephalic Pupils: Positive for: PERRL Extroacular Muscles: Positive for: EOMI Conjunctiva: Positive for: Normal Mouth: Positive for: Moist Mucous Membranes Respiratory/Chest: Positive for: Clear to Auscultation. Negative for: Respiratory Distress, Accessory Muscle Use, Wheezes Cardiovascular: Positive for: Regular Rate and Rhythm, Normal S1, S2. Negative for: Murmurs Abdomen: Positive for: Normal Bowel Sounds. Negative for: Tenderness, Distention, Peritoneal Signs Upper Extremity: Positive for: Normal Inspection. Negative for: Cyanosis, Edema Lower Extremity: Positive for: Normal Inspection. Negative for: Edema Skin: Positive for: Warm, Dry, Normal Color. Negative for: Rashes Psychiatric: Positive for: Alert, Oriented x 3, Normal Insight, Normal Concentration - Medications Active Medications: Active Medications Generic Name Dose Route Start Last Admin Trade Name Freq PRN Reason Stop Dose Admin Albuterol/Ipratropium 3 ml 08/07/18 07:30 08/09/18 07:32 Duoneb 3 Mg/0.5 Mg (3 Ml) Ud IH 3 ml [id number] YASIR Administration Amlodipine Besylate 10 mg 08/07/18 11:30 08/09/18 09:02 Norvasc PO 10 mg DAILY YASIR Administration Arformoterol Tartrate 15 mcg 08/07/18 08:00 08/09/18 07:32 Brovana IH 15 mcg [id number] YASIR Administration Aspirin 81 mg 08/07/18 11:30 08/09/18 09:03 Ecotrin PO 81 mg DAILY YASIR Administration Brimonidine Tartrate 1 drop 08/07/18 11:30 08/09/18 03:43 Alphagan P 0.15% Opht OU 1 drop Q8H YASIR Administration Budesonide 0.25 mg 08/07/18 08:00 08/09/18 07:34 Pulmicort Respules IH 0.25 mg [id number] YASIR Administration Clopidogrel Bisulfate 75 mg 08/07/18 11:30 08/09/18 09:02 Plavix PO 75 mg DAILY YASIR Administration Enoxaparin Sodium 40 mg 08/07/18 10:00 08/09/18 09:04 Lovenox SC 40 mg DAILY YASIR Administration Protocol Furosemide 20 mg 08/08/18 10:30 08/09/18 09:35 Lasix IV 20 mg Q12H YASIR Administration Azithromycin 250 mg/ Sodium 250 mls @ 167 mls/hr 08/07/18 10:00 08/09/18 09:45 Chloride IVPB 167 mls/hr DAILY YASIR Administration Protocol Dexmedetomidine HCl 400 mcg in 100 mls @ 3.534 mls/hr 08/07/18 09:35 08/08/18 16:00 Precedex 400mcg/100ml IV 0 mcg/kg/hr .Q24H PRN 0 mls/hr Sedation Titration Protocol 0.2 MCG/KG/HR Fentanyl Citrate 1,000 mcg in 100 mls @ 2 mls/hr 08/07/18 09:38 08/08/18 07:33 Fentanyl Citrate/Sodium Chloride 1 Mg/100 Ml IV 0 mcg/hr .Q24H PRN 0 mls/hr TITRATE PER MD ORDER Titration Protocol 20 MCG/HR Ceftriaxone Sodium 1 gm in 100 mls @ 100 mls/hr 08/07/18 10:00 08/09/18 09:04 Rocephin 1 Gram Ivpb IVPB 100 mls/hr DAILY YASIR Administration Protocol Insulin Detemir 20 unit 08/08/18 09:30 08/09/18 09:05 Levemir SC 20 units Q12H YASIR Administration Insulin Human Regular 0 units 08/07/18 11:30 08/09/18 07:35 Humulin R High SC 4 unit ACHS YSAIR Administration Protocol Latanoprost 0 ml 08/07/18 22:00 08/08/18 22:24 Xalatan Opht OU 2.5 ml HS YASIR Administration Lisinopril 20 mg 08/07/18 18:00 08/09/18 09:03 Zestril PO 20 mg BID YASIR Administration Metoprolol Tartrate 100 mg 08/07/18 18:00 08/09/18 09:03 Lopressor PO 100 mg BID YASIR Administration Pantoprazole Sodium 40 mg 08/10/18 07:30 Protonix Ec Tab PO ACB YASIR Potassium Chloride 20 meq 08/08/18 18:00 08/09/18 09:05 Potassium Chloride Oral Soln NG 20 meq BID YASIR Administration Prednisone 40 mg 08/09/18 10:45 Prednisone Tab PO DAILY [facility] Timolol Maleate 1 drop 08/07/18 18:00 08/09/18 09:04 Timoptic 0.5% Ophth Soln OU 1 drop BID YASIR Administration - Patient Studies Lab Studies: Microbiology Studies 08/07/18 02:30 Blood Culture - Preliminary Blood-Venous NO GROWTH AFTER 48 HOURS 08/07/18 02:05 Blood Culture - Preliminary Blood-Venous NO GROWTH AFTER 48 HOURS 08/07/18 13:00 MRSA Culture (Admit) - Final Naris MRSA NOT DETECTED 08/07/18 06:23 Urine Culture - Final Urine,Clean Catch No Growth (<1,000 CFU/ML) Lab Studies 08/09/18 08/09/18 08/09/18 Range/Units 07:29 05:30 05:30 WBC 10.8 D (4.5-11.0) 10^3/uL RBC 3.69 (3.5-6.1) 10^6/uL Hgb 10.7 L (12.0-16.0) g/dL Hct 32.9 L (36.0-48.0) % MCV 89.2 (80.0-105.0) fl MCH 29.0 (25.0-35.0) pg MCHC 32.5 (31.0-37.0) g/dl RDW 13.8 (11.5-14.5) % Plt Count 170 (120.0-450.0) 10^3/uL MPV 10.3 (7.0-11.0) fl Neut % (Auto) 86.4 H (50.0-68.0) % Lymph % (Auto) 8.1 L (22.0-35.0) % [place] % (Auto) 5.5 (1.0-6.0) % Eos % (Auto) 0.0 L (1.5-5.0) % Baso % (Auto) 0.0 (0.0-3.0) % Lymph # (Auto) 0.9 L (1.2-3.4) [place] # (Auto) 0.6 (0.1-0.6) Eos # (Auto) 0.0 (0.0-0.7) Baso # (Auto) 0.00 (0.0-2.0) K/mm3 Absolute Neuts (auto) 9.32 H (1.4-6.5) pCO2 (35-45) mm/Hg pO2 (80-100) mm/Hg HCO3 (21-28) mmol/L ABG pH (7.35-7.45) ABG Total CO2 (22-28) mmol.L ABG O2 Saturation (95-98) % ABG O2 Content (15-23) ML/dl ABG Base Excess (-2.0-3.0) mmol/L ABG Hemoglobin (11.7-17.4) g/dL ABG Carboxyhemoglobin (0.5-1.5) % POC ABG HHb (Measured) (0-5) % ABG Methemoglobin (0.0-3.0) % ABG O2 Capacity (16-24) mL/dl Hgb O2 Saturation (95.0-98.0) % FiO2 % Sodium 138 (132-148) mmol/L Potassium 3.9 (3.6-5.0) mmol/L Chloride 96 L (98-107) mmol/L Carbon Dioxide 32 (21-33) mmol/L Anion Gap 15 (10-20) BUN 46 H (7-21) mg/dL Creatinine 0.9 (0.7-1.2) mg/dl Est GFR ( Amer) > 60 Est GFR (Non-Af Amer) > 60 POC Glucose (mg/dL) 201 H (65-110) mg/dL Random Glucose 210 H (70-110) mg/dL Calcium 9.4 (8.4-10.5) mg/dL Total Bilirubin 0.4 (0.2-1.3) mg/dL AST 31 (14-36) U/L ALT 12 (7-56) U/L Alkaline Phosphatase 75 (38-126) U/L Total Protein 7.1 (5.8-8.3) g/dL Albumin 3.7 (3.0-4.8) g/dL Globulin 3.4 gm/dL Albumin/Globulin Ratio 1.1 (1.1-1.8) 08/09/18 08/08/18 08/08/18 Range/Units 02:08 22:36 16:14 WBC (4.5-11.0) 10^3/uL RBC (3.5-6.1) 10^6/uL Hgb (12.0-16.0) g/dL Hct (36.0-48.0) % MCV (80.0-105.0) fl MCH (25.0-35.0) pg MCHC (31.0-37.0) g/dl RDW (11.5-14.5) % Plt Count (120.0-450.0) 10^3/uL MPV (7.0-11.0) fl Neut % (Auto) (50.0-68.0) % Lymph % (Auto) (22.0-35.0) % [place] % (Auto) (1.0-6.0) % Eos % (Auto) (1.5-5.0) % Baso % (Auto) (0.0-3.0) % Lymph # (Auto) (1.2-3.4) [place] # (Auto) (0.1-0.6) Eos # (Auto) (0.0-0.7) Baso # (Auto) (0.0-2.0) K/mm3 Absolute Neuts (auto) (1.4-6.5) pCO2 (35-45) mm/Hg pO2 (80-100) mm/Hg HCO3 (21-28) mmol/L ABG pH (7.35-7.45) ABG Total CO2 (22-28) mmol.L ABG O2 Saturation (95-98) % ABG O2 Content (15-23) ML/dl ABG Base Excess (-2.0-3.0) mmol/L ABG Hemoglobin (11.7-17.4) g/dL ABG Carboxyhemoglobin (0.5-1.5) % POC ABG HHb (Measured) (0-5) % ABG Methemoglobin (0.0-3.0) % ABG O2 Capacity (16-24) mL/dl Hgb O2 Saturation (95.0-98.0) % FiO2 % Sodium (132-148) mmol/L Potassium (3.6-5.0) mmol/L Chloride (98-107) mmol/L Carbon Dioxide (21-33) mmol/L Anion Gap (10-20) BUN (7-21) mg/dL Creatinine (0.7-1.2) mg/dl Est GFR ( Amer) Est GFR (Non-Af Amer) POC Glucose (mg/dL) 344 H 335 H 260 H (65-110) mg/dL Random Glucose (70-110) mg/dL Calcium (8.4-10.5) mg/dL Total Bilirubin (0.2-1.3) mg/dL AST (14-36) U/L ALT (7-56) U/L Alkaline Phosphatase (38-126) U/L Total Protein (5.8-8.3) g/dL Albumin (3.0-4.8) g/dL Globulin gm/dL Albumin/Globulin Ratio (1.1-1.8) 08/08/18 08/08/18 Range/Units 15:00 11:24 WBC (4.5-11.0) 10^3/uL RBC (3.5-6.1) 10^6/uL Hgb (12.0-16.0) g/dL Hct (36.0-48.0) % MCV (80.0-105.0) fl MCH (25.0-35.0) pg MCHC (31.0-37.0) g/dl RDW (11.5-14.5) % Plt Count (120.0-450.0) 10^3/uL MPV (7.0-11.0) fl Neut % (Auto) (50.0-68.0) % Lymph % (Auto) (22.0-35.0) % [place] % (Auto) (1.0-6.0) % Eos % (Auto) (1.5-5.0) % Baso % (Auto) (0.0-3.0) % Lymph # (Auto) (1.2-3.4) [place] # (Auto) (0.1-0.6) Eos # (Auto) (0.0-0.7) Baso # (Auto) (0.0-2.0) K/mm3 Absolute Neuts (auto) (1.4-6.5) pCO2 54 H (35-45) mm/Hg pO2 187.0 H (80-100) mm/Hg HCO3 30.5 H (21-28) mmol/L ABG pH 7.36 (7.35-7.45) ABG Total CO2 32.2 H (22-28) mmol.L ABG O2 Saturation 100.2 H (95-98) % ABG O2 Content 15.1 (15-23) ML/dl ABG Base Excess 4.1 H (-2.0-3.0) mmol/L ABG Hemoglobin 10.8 L (11.7-17.4) g/dL ABG Carboxyhemoglobin 2.1 H (0.5-1.5) % POC ABG HHb (Measured) -0.2 L (0-5) % ABG Methemoglobin 1.4 (0.0-3.0) % ABG O2 Capacity 15.1 L (16-24) mL/dl Hgb O2 Saturation 96.7 (95.0-98.0) % FiO2 40.0 % Sodium (132-148) mmol/L Potassium (3.6-5.0) mmol/L Chloride (98-107) mmol/L Carbon Dioxide (21-33) mmol/L Anion Gap (10-20) BUN (7-21) mg/dL Creatinine (0.7-1.2) mg/dl Est GFR ( Amer) Est GFR (Non-Af Amer) POC Glucose (mg/dL) 397 H (65-110) mg/dL Random Glucose (70-110) mg/dL Calcium (8.4-10.5) mg/dL Total Bilirubin (0.2-1.3) mg/dL AST (14-36) U/L ALT (7-56) U/L Alkaline Phosphatase (38-126) U/L Total Protein (5.8-8.3) g/dL Albumin (3.0-4.8) g/dL Globulin gm/dL Albumin/Globulin Ratio (1.1-1.8) Laboratory Results - last 24 hr 08/08/18 08/08/18 08/08/18 11:24 15:00 16:14 WBC RBC Hgb Hct MCV MCH MCHC RDW Plt Count MPV Neut % (Auto) Lymph % (Auto) [place] % (Auto) Eos % (Auto) Baso % (Auto) Lymph # (Auto) [place] # (Auto) Eos # (Auto) Baso # (Auto) Absolute Neuts (auto) pCO2 54 H pO2 187.0 H HCO3 30.5 H ABG pH 7.36 ABG Total CO2 32.2 H ABG O2 Saturation 100.2 H ABG O2 Content 15.1 ABG Base Excess 4.1 H ABG Hemoglobin 10.8 L ABG Carboxyhemoglobin 2.1 H POC ABG HHb (Measured) -0.2 L ABG Methemoglobin 1.4 ABG O2 Capacity 15.1 L Hgb O2 Saturation 96.7 FiO2 40.0 Sodium Potassium Chloride Carbon Dioxide Anion Gap BUN Creatinine Est GFR ( Amer) Est GFR (Non-Af Amer) POC Glucose (mg/dL) 397 H 260 H Random Glucose Calcium Total Bilirubin AST ALT Alkaline Phosphatase Total Protein Albumin Globulin Albumin/Globulin Ratio 08/08/18 08/09/18 08/09/18 22:36 02:08 05:30 WBC 10.8 D RBC 3.69 Hgb 10.7 L Hct 32.9 L MCV 89.2 MCH 29.0 MCHC 32.5 RDW 13.8 Plt Count 170 MPV 10.3 Neut % (Auto) 86.4 H Lymph % (Auto) 8.1 L [place] % (Auto) 5.5 Eos % (Auto) 0.0 L Baso % (Auto) 0.0 Lymph # (Auto) 0.9 L [place] # (Auto) 0.6 Eos # (Auto) 0.0 Baso # (Auto) 0.00 Absolute Neuts (auto) 9.32 H pCO2 pO2 HCO3 ABG pH ABG Total CO2 ABG O2 Saturation ABG O2 Content ABG Base Excess ABG Hemoglobin ABG Carboxyhemoglobin POC ABG HHb (Measured) ABG Methemoglobin ABG O2 Capacity Hgb O2 Saturation FiO2 Sodium Potassium Chloride Carbon Dioxide Anion Gap BUN Creatinine Est GFR ( Amer) Est GFR (Non-Af Amer) POC Glucose (mg/dL) 335 H 344 H Random Glucose Calcium Total Bilirubin AST ALT Alkaline Phosphatase Total Protein Albumin Globulin Albumin/Globulin Ratio 08/09/18 08/09/18 05:30 07:29 WBC RBC Hgb Hct MCV MCH MCHC RDW Plt Count MPV Neut % (Auto) Lymph % (Auto) [place] % (Auto) Eos % (Auto) Baso % (Auto) Lymph # (Auto) [place] # (Auto) Eos # (Auto) Baso # (Auto) Absolute Neuts (auto) pCO2 pO2 HCO3 ABG pH ABG Total CO2 ABG O2 Saturation ABG O2 Content ABG Base Excess ABG Hemoglobin ABG Carboxyhemoglobin POC ABG HHb (Measured) ABG Methemoglobin ABG O2 Capacity Hgb O2 Saturation FiO2 Sodium 138 Potassium 3.9 Chloride 96 L Carbon Dioxide 32 Anion Gap 15 BUN 46 H Creatinine 0.9 Est GFR ( Amer) > 60 Est GFR (Non-Af Amer) > 60 POC Glucose (mg/dL) 201 H Random Glucose 210 H Calcium 9.4 Total Bilirubin 0.4 AST 31 ALT 12 Alkaline Phosphatase 75 Total Protein 7.1 Albumin 3.7 Globulin 3.4 Albumin/Globulin Ratio 1.1 Radiology Impressions: Radiology Impressions Chest X-Ray 08/08/18 10:52 IMPRESSION: There are 2 separate nasogastric tubes in the mid to distal stomach. One of these tubes is folded 180 degrees distally. Fingerstick Blood Sugar Results: 201 Critical Care Progress Note - Nutrition Nutrition: Nutrition Category Date Time Status Heart Healthy Diet [DIET] Diets 08/08/18 Dinner Active Assessment/Plan - Assessment and Plan (Free Text) Assessment: Pt is a 78 yo female with a PMH of COPD, HTN, CAD, DM, and Alzheimer's dementia admitted to the ICU for hypercapneic respiratory failure secondary to acute on chronic COPD exacerbation, with respiratory alkalosis, pt is no longer intubated. Plan: Neuro - Has h/o Alzheimer's dementia at baseline - Monitor for changes in neuro status Cardio - RRR, BP stable, No LE edema - Troponin negative, BNP 2160 - ECHO from 04/2018 showed EF 70%, RVSP 27, moderate LVH - Maintain MAP>65 - lisinopril, amlodipine, plavix, metoprolol - Monitor for s/sx of worsening hemodynamic compromise Pulm - Maintain O2 saturation >90% - prednisone 40 PO daily - Continue duonebs, pulmicort, brovana GI - dietary consult Renal - BUN/Cr stable (46/0.9) - Monitor I/O's - Replete electrolytes as needed, Maintain euvolemia Endocrine - ISS high - levemir 20 q12 Heme/onc - H/H stable - Hgb 10.7, INR 1.05 - Has h/o anemia of chronic disease - Daily CBC for H/H - monitor for s/sx of hemodynamic compromise ID - Afebrile, no leukocytosis - azithromycin - ceftriaxone for PNA coverage DVT/GI PPX: Lovenox/Protonix Full code Monitor in MICU Pt seen, examined, assessment and plan discussed with Dr Yovanny Warren PGY1 - Date & Time Date: 08/09/18 Time: 07:00 <Gilbert Hairston - Last Filed: 08/09/18 12:50> CCU Objective - Vital Signs / Intake & Output Vital Signs (Last 4 hours): Vital Signs Temp Pulse Resp BP Pulse Ox 08/09/18 12:08 75 08/09/18 12:00 98.4 F 08/09/18 11:40 82 25 H 98 08/09/18 11:30 77 21 100 08/09/18 11:20 75 14 121/68 100 08/09/18 11:10 76 100 08/09/18 11:00 78 31 H 100 08/09/18 10:50 78 19 100 08/09/18 10:40 74 31 H 100 08/09/18 10:30 78 100 08/09/18 10:20 78 125/60 100 08/09/18 10:10 80 18 100 08/09/18 10:00 85 15 97 08/09/18 09:50 85 26 H 100 03/20/19 09:40 82 18 87 L 08/09/18 09:35 132/59 L 08/09/18 09:30 93 H 19 100 08/09/18 09:20 96 H 27 H 82 L 08/09/18 09:10 91 H 98 08/09/18 09:03 88 132/59 L 08/09/18 09:02 132/59 L 08/09/18 09:00 92 H 19 100 08/09/18 08:50 96 H 23 99 Intake and Output (Last 8hrs): Intake & Output 08/08/18 08/09/18 08/09/18 22:59 06:59 14:59 Intake Total 440 500 830 Output Total 600 400 Balance 440 -100 430 Weight 155 lb Intake: IV 440 350 Left Forearm 350 Left Wrist 400 Oral 500 480 Output: Urine 600 400 Urethral (Hop[place]) 600 400 - Medications Active Medications: Active Medications Generic Name Dose Route Start Last Admin Trade Name Freq PRN Reason Stop Dose Admin Albuterol/Ipratropium 3 ml 08/07/18 07:30 08/09/18 11:12 Duoneb 3 Mg/0.5 Mg (3 Ml) Ud IH 3 ml [id number] YASIR Administration Amlodipine Besylate 10 mg 08/07/18 11:30 08/09/18 09:02 Norvasc PO 10 mg DAILY YASIR Administration Arformoterol Tartrate 15 mcg 08/07/18 08:00 08/09/18 07:32 Brovana IH 15 mcg [id number] YASIR Administration Aspirin 81 mg 08/07/18 11:30 08/09/18 09:03 Ecotrin PO 81 mg DAILY YASIR Administration Azithromycin 250 mg 08/10/18 10:00 Zithromax PO DAILY YASIR Brimonidine Tartrate 1 drop 08/07/18 11:30 08/09/18 11:53 Alphagan P 0.15% Opht OU 1 drop Q8H YASIR Administration Budesonide 0.25 mg 08/07/18 08:00 08/09/18 07:34 Pulmicort Respules IH 0.25 mg [id number] YASIR Administration Clopidogrel Bisulfate 75 mg 08/07/18 11:30 08/09/18 09:02 Plavix PO 75 mg DAILY YASIR Administration Enoxaparin Sodium 40 mg 08/07/18 10:00 03/20/19 09:04 Lovenox SC 40 mg DAILY YASIR Administration Protocol Furosemide 20 mg 08/08/18 10:30 08/09/18 09:35 Lasix IV 20 mg Q12H YASIR Administration Ceftriaxone Sodium 1 gm in 100 mls @ 100 mls/hr 08/07/18 10:00 08/09/18 09:04 Rocephin 1 Gram Ivpb IVPB 100 mls/hr DAILY YASIR Administration Protocol Insulin Detemir 20 unit 08/08/18 09:30 08/09/18 09:05 Levemir SC 20 units Q12H YASIR Administration Insulin Human Regular 0 units 08/07/18 11:30 08/09/18 11:55 Humulin R High SC 7 unit ACHS YASIR Administration Protocol Latanoprost 0 ml 08/07/18 22:00 08/08/18 22:24 Xalatan Opht OU 2.5 ml HS YASIR Administration Lisinopril 20 mg 08/07/18 18:00 08/09/18 09:03 Zestril PO 20 mg BID YASIR Administration Metoprolol Tartrate 100 mg 08/07/18 18:00 08/09/18 09:03 Lopressor PO 100 mg BID YASIR Administration Pantoprazole Sodium 40 mg 08/10/18 07:30 Protonix Ec Tab PO ACB YASIR Potassium Chloride 20 meq 08/08/18 18:00 08/09/18 09:05 Potassium Chloride Oral Soln NG 20 meq BID YASIR Administration Prednisone 40 mg 08/09/18 10:45 08/09/18 11:53 Prednisone Tab PO 40 mg DAILY YASIR Administration Timolol Maleate 1 drop 08/07/18 18:00 08/09/18 09:04 Timoptic 0.5% Ophth Soln OU 1 drop BID YASIR Administration - Patient Studies Lab Studies: Microbiology Studies 08/07/18 02:30 Blood Culture - Preliminary Blood-Venous NO GROWTH AFTER 48 HOURS 08/07/18 02:05 Blood Culture - Preliminary Blood-Venous NO GROWTH AFTER 48 HOURS 08/07/18 13:00 MRSA Culture (Admit) - Final Naris MRSA NOT DETECTED 08/07/18 06:23 Urine Culture - Final Urine,Clean Catch No Growth (<1,000 CFU/ML) Lab Studies 08/09/18 08/09/18 08/09/18 Range/Units 07:29 05:30 05:30 WBC 10.8 D (4.5-11.0) 10^3/uL RBC 3.69 (3.5-6.1) 10^6/uL Hgb 10.7 L (12.0-16.0) g/dL Hct 32.9 L (36.0-48.0) % MCV 89.2 (80.0-105.0) fl MCH 29.0 (25.0-35.0) pg MCHC 32.5 (31.0-37.0) g/dl RDW 13.8 (11.5-14.5) % Plt Count 170 (120.0-450.0) 10^3/uL MPV 10.3 (7.0-11.0) fl Neut % (Auto) 86.4 H (50.0-68.0) % Lymph % (Auto) 8.1 L (22.0-35.0) % [place] % (Auto) 5.5 (1.0-6.0) % Eos % (Auto) 0.0 L (1.5-5.0) % Baso % (Auto) 0.0 (0.0-3.0) % Lymph # (Auto) 0.9 L (1.2-3.4) [place] # (Auto) 0.6 (0.1-0.6) Eos # (Auto) 0.0 (0.0-0.7) Baso # (Auto) 0.00 (0.0-2.0) K/mm3 Absolute Neuts (auto) 9.32 H (1.4-6.5) pCO2 (35-45) mm/Hg pO2 (80-100) mm/Hg HCO3 (21-28) mmol/L ABG pH (7.35-7.45) ABG Total CO2 (22-28) mmol.L ABG O2 Saturation (95-98) % ABG O2 Content (15-23) ML/dl ABG Base Excess (-2.0-3.0) mmol/L ABG Hemoglobin (11.7-17.4) g/dL ABG Carboxyhemoglobin (0.5-1.5) % POC ABG HHb (Measured) (0-5) % ABG Methemoglobin (0.0-3.0) % ABG O2 Capacity (16-24) mL/dl Hgb O2 Saturation (95.0-98.0) % FiO2 % Sodium 138 (132-148) mmol/L Potassium 3.9 (3.6-5.0) mmol/L Chloride 96 L (98-107) mmol/L Carbon Dioxide 32 (21-33) mmol/L Anion Gap 15 (10-20) BUN 46 H (7-21) mg/dL Creatinine 0.9 (0.7-1.2) mg/dl Est GFR ( Amer) > 60 Est GFR (Non-Af Amer) > 60 POC Glucose (mg/dL) 201 H (65-110) mg/dL Random Glucose 210 H (70-110) mg/dL Calcium 9.4 (8.4-10.5) mg/dL Total Bilirubin 0.4 (0.2-1.3) mg/dL AST 31 (14-36) U/L ALT 12 (7-56) U/L Alkaline Phosphatase 75 (38-126) U/L Total Protein 7.1 (5.8-8.3) g/dL Albumin 3.7 (3.0-4.8) g/dL Globulin 3.4 gm/dL Albumin/Globulin Ratio 1.1 (1.1-1.8) 08/09/18 08/08/18 08/08/18 Range/Units 02:08 22:36 16:14 WBC (4.5-11.0) 10^3/uL RBC (3.5-6.1) 10^6/uL Hgb (12.0-16.0) g/dL Hct (36.0-48.0) % MCV (80.0-105.0) fl MCH (25.0-35.0) pg MCHC (31.0-37.0) g/dl RDW (11.5-14.5) % Plt Count (120.0-450.0) 10^3/uL MPV (7.0-11.0) fl Neut % (Auto) (50.0-68.0) % Lymph % (Auto) (22.0-35.0) % [place] % (Auto) (1.0-6.0) % Eos % (Auto) (1.5-5.0) % Baso % (Auto) (0.0-3.0) % Lymph # (Auto) (1.2-3.4) [place] # (Auto) (0.1-0.6) Eos # (Auto) (0.0-0.7) Baso # (Auto) (0.0-2.0) K/mm3 Absolute Neuts (auto) (1.4-6.5) pCO2 (35-45) mm/Hg pO2 (80-100) mm/Hg HCO3 (21-28) mmol/L ABG pH (7.35-7.45) ABG Total CO2 (22-28) mmol.L ABG O2 Saturation (95-98) % ABG O2 Content (15-23) ML/dl ABG Base Excess (-2.0-3.0) mmol/L ABG Hemoglobin (11.7-17.4) g/dL ABG Carboxyhemoglobin (0.5-1.5) % POC ABG HHb (Measured) (0-5) % ABG Methemoglobin (0.0-3.0) % ABG O2 Capacity (16-24) mL/dl Hgb O2 Saturation (95.0-98.0) % FiO2 % Sodium (132-148) mmol/L Potassium (3.6-5.0) mmol/L Chloride (98-107) mmol/L Carbon Dioxide (21-33) mmol/L Anion Gap (10-20) BUN (7-21) mg/dL Creatinine (0.7-1.2) mg/dl Est GFR ( Amer) Est GFR (Non-Af Amer) POC Glucose (mg/dL) 344 H 335 H 260 H (65-110) mg/dL Random Glucose (70-110) mg/dL Calcium (8.4-10.5) mg/dL Total Bilirubin (0.2-1.3) mg/dL AST (14-36) U/L ALT (7-56) U/L Alkaline Phosphatase (38-126) U/L Total Protein (5.8-8.3) g/dL Albumin (3.0-4.8) g/dL Globulin gm/dL Albumin/Globulin Ratio (1.1-1.8) 08/08/18 08/08/18 Range/Units 15:00 11:24 WBC (4.5-11.0) 10^3/uL RBC (3.5-6.1) 10^6/uL Hgb (12.0-16.0) g/dL Hct (36.0-48.0) % MCV (80.0-105.0) fl MCH (25.0-35.0) pg MCHC (31.0-37.0) g/dl RDW (11.5-14.5) % Plt Count (120.0-450.0) 10^3/uL MPV (7.0-11.0) fl Neut % (Auto) (50.0-68.0) % Lymph % (Auto) (22.0-35.0) % [place] % (Auto) (1.0-6.0) % Eos % (Auto) (1.5-5.0) % Baso % (Auto) (0.0-3.0) % Lymph # (Auto) (1.2-3.4) [place] # (Auto) (0.1-0.6) Eos # (Auto) (0.0-0.7) Baso # (Auto) (0.0-2.0) K/mm3 Absolute Neuts (auto) (1.4-6.5) pCO2 54 H (35-45) mm/Hg pO2 187.0 H (80-100) mm/Hg HCO3 30.5 H (21-28) mmol/L ABG pH 7.36 (7.35-7.45) ABG Total CO2 32.2 H (22-28) mmol.L ABG O2 Saturation 100.2 H (95-98) % ABG O2 Content 15.1 (15-23) ML/dl ABG Base Excess 4.1 H (-2.0-3.0) mmol/L ABG Hemoglobin 10.8 L (11.7-17.4) g/dL ABG Carboxyhemoglobin 2.1 H (0.5-1.5) % POC ABG HHb (Measured) -0.2 L (0-5) % ABG Methemoglobin 1.4 (0.0-3.0) % ABG O2 Capacity 15.1 L (16-24) mL/dl Hgb O2 Saturation 96.7 (95.0-98.0) % FiO2 40.0 % Sodium (132-148) mmol/L Potassium (3.6-5.0) mmol/L Chloride (98-107) mmol/L Carbon Dioxide (21-33) mmol/L Anion Gap (10-20) BUN (7-21) mg/dL Creatinine (0.7-1.2) mg/dl Est GFR ( Amer) Est GFR (Non-Af Amer) POC Glucose (mg/dL) 397 H (65-110) mg/dL Random Glucose (70-110) mg/dL Calcium (8.4-10.5) mg/dL Total Bilirubin (0.2-1.3) mg/dL AST (14-36) U/L ALT (7-56) U/L Alkaline Phosphatase (38-126) U/L Total Protein (5.8-8.3) g/dL Albumin (3.0-4.8) g/dL Globulin gm/dL Albumin/Globulin Ratio (1.1-1.8) Laboratory Results - last 24 hr 08/08/18 08/08/18 08/08/18 11:24 15:00 16:14 WBC RBC Hgb Hct MCV MCH MCHC RDW Plt Count MPV Neut % (Auto) Lymph % (Auto) [place] % (Auto) Eos % (Auto) Baso % (Auto) Lymph # (Auto) [place] # (Auto) Eos # (Auto) Baso # (Auto) Absolute Neuts (auto) pCO2 54 H pO2 187.0 H HCO3 30.5 H ABG pH 7.36 ABG Total CO2 32.2 H ABG O2 Saturation 100.2 H ABG O2 Content 15.1 ABG Base Excess 4.1 H ABG Hemoglobin 10.8 L ABG Carboxyhemoglobin 2.1 H POC ABG HHb (Measured) -0.2 L ABG Methemoglobin 1.4 ABG O2 Capacity 15.1 L Hgb O2 Saturation 96.7 FiO2 40.0 Sodium Potassium Chloride Carbon Dioxide Anion Gap BUN Creatinine Est GFR ( Amer) Est GFR (Non-Af Amer) POC Glucose (mg/dL) 397 H 260 H Random Glucose Calcium Total Bilirubin AST ALT Alkaline Phosphatase Total Protein Albumin Globulin Albumin/Globulin Ratio 08/08/18 08/09/18 08/09/18 22:36 02:08 05:30 WBC 10.8 D RBC 3.69 Hgb 10.7 L Hct 32.9 L MCV 89.2 MCH 29.0 MCHC 32.5 RDW 13.8 Plt Count 170 MPV 10.3 Neut % (Auto) 86.4 H Lymph % (Auto) 8.1 L [place] % (Auto) 5.5 Eos % (Auto) 0.0 L Baso % (Auto) 0.0 Lymph # (Auto) 0.9 L [place] # (Auto) 0.6 Eos # (Auto) 0.0 Baso # (Auto) 0.00 Absolute Neuts (auto) 9.32 H pCO2 pO2 HCO3 ABG pH ABG Total CO2 ABG O2 Saturation ABG O2 Content ABG Base Excess ABG Hemoglobin ABG Carboxyhemoglobin POC ABG HHb (Measured) ABG Methemoglobin ABG O2 Capacity Hgb O2 Saturation FiO2 Sodium Potassium Chloride Carbon Dioxide Anion Gap BUN Creatinine Est GFR ( Amer) Est GFR (Non-Af Amer) POC Glucose (mg/dL) 335 H 344 H Random Glucose Calcium Total Bilirubin AST ALT Alkaline Phosphatase Total Protein Albumin Globulin Albumin/Globulin Ratio 08/09/18 08/09/18 05:30 07:29 WBC RBC Hgb Hct MCV MCH MCHC RDW Plt Count MPV Neut % (Auto) Lymph % (Auto) [place] % (Auto) Eos % (Auto) Baso % (Auto) Lymph # (Auto) [place] # (Auto) Eos # (Auto) Baso # (Auto) Absolute Neuts (auto) pCO2 pO2 HCO3 ABG pH ABG Total CO2 ABG O2 Saturation ABG O2 Content ABG Base Excess ABG Hemoglobin ABG Carboxyhemoglobin POC ABG HHb (Measured) ABG Methemoglobin ABG O2 Capacity Hgb O2 Saturation FiO2 Sodium 138 Potassium 3.9 Chloride 96 L Carbon Dioxide 32 Anion Gap 15 BUN 46 H Creatinine 0.9 Est GFR ( Amer) > 60 Est GFR (Non-Af Amer) > 60 POC Glucose (mg/dL) 201 H Random Glucose 210 H Calcium 9.4 Total Bilirubin 0.4 AST 31 ALT 12 Alkaline Phosphatase 75 Total Protein 7.1 Albumin 3.7 Globulin 3.4 Albumin/Globulin Ratio 1.1 Radiology Impressions: Radiology Impressions Chest X-Ray 08/08/18 10:52 IMPRESSION: There are 2 separate nasogastric tubes in the mid to distal stomach. One of these tubes is folded 180 degrees distally. Critical Care Progress Note - Nutrition Nutrition: Nutrition Category Date Time Status Heart Healthy Diet [DIET] Diets 08/08/18 Dinner Active Assessment/Plan - Assessment and Plan (Free Text) Plan: Patient seen and examined on rounds with resident, agree with note with following additions/exceptions: Patient is 78yo female with PMHx of COPD, HTN, CAD, DM, and Alzheimer's dementia admitted to the ICU for hypercapneic respiratory, COPD exacerbation Yesterday placed on CPAP trial, did well, subeqeuently extubated in the afternoon Currently afebrile, HD stable, comfortable in NAD, on 2LNC; refused BIPAP last night Labs, imaging, chart reviewed COPD exacerbation Hypercapnic resp failure rule out PNA CAD DM Alzheimers disease HTN Recommend: - cont with supp o2 as needed, goal sat 90%, BIPAP at night - follow up cultures - Holly Fitzgeraldro x 7 days - BP control - ASA, Plavix, Statin - FS control - monitor I/Os - diabetic diet - resume home dose of Levemir - GI ppx - DVT ppx - stable, transfer remote tele
--- NOTE | 2018-08-09 15:10 | PN ---
DATE: 08/09/2018 CRITICAL CARE PROGRESS NOTE SUBJECTIVE: This 78-year-old female was examined in CCU bed #5 at the [facility] on the morning of 08/09/2018. Present for this interview was nurse, Yaya Whitney, registered nurse. The patient remains alert but confused. She apparently did not wear her BiPAP throughout last evening as well. She is currently extubated, tolerating a soft, heart-healthy diabetic diet, and remains in sinus rhythm on media monitor. PHYSICAL EXAMINATION: VITAL SIGNS: Temperature 98.1, respirations 19, pulse 83 and blood pressure 140/74. Pulse ox 100% on 2 liters nasal O2. HEENT: Head: Normocephalic, atraumatic. Eyes: No icterus. Ears: Clear. Throat: Noninjected. NECK: Supple. HEART: S1, S2. LUNGS: With occasional rhonchi that clear with coughing. ABDOMEN: Soft. EXTREMITIES: No edema. SKIN: Without rash. NEUROLOGIC: Grossly intact. PSYCHOLOGIC: Alert, but confused. VASCULAR: Legs warm to touch. LABORATORY DATA: White count 10,800, hemoglobin 10.7, hematocrit 32.9, platelets 170,000. Sodium 138, K 3.9, chloride 96, bicarb 32, BUN 46, creatinine 0.9, random blood sugar 201 with a calcium of 9.4. Bilirubin 0.4, AST 31, ALT 12 and alk phos 75, albumin 3.7. Microbiology shows no MRSA of the nares, and urine and blood cultures with no growth. IMPRESSION: This is a 78-year-old female status post respiratory arrest secondary to CO2 narcosis in the setting of noncompliance with bilevel positive airway pressure [facility] with multiple comorbidities including glaucoma, chronic obstructive pulmonary disease, stable atherosclerotic heart disease, insulin-dependent diabetes mellitus, chronic hypertension, peptic ulcer disease with gastroesophageal reflux disease, glaucoma and degenerative arthritis, anemia of chronic disease as well as organic brain syndrome, agitation and paranoid schizophrenia. PLAN: The plan at present will be to continue IV antibiotics including Zithromax and IV Rocephin. She continues on Zestril, glaucoma eyedrops, Pulmicort, and Duonebulizer therapies, oral Protonix, oral prednisone, IV Lasix, oral Plavix, oral potassium, Norvasc, Lopressor, Levemir insulin coverage. I have asked nurse Devonte to reach out to the specimen technician to see if there is a model of facemask for her BiPAP that is more comfortable for her to help in her compliance. She will continue on a heart-healthy soft bland diet. She is ordered to have heel protectors, skin precautions, air mattress, fall precautions; and based on clinical progress, additional diagnostic workup and testing will be entertained. As discussed with the patient's daughter, Janene, her overall prognosis remains poor given her poor compliance with needed BiPAP and most recent respiratory failure requiring intubation. Greater than 60 minutes was spent in her care today. All questions were answered. Mikayla Rodriguez MD
[2018-08-09] MEDS: Latanoprost 2.5 ml Opht Soln OU SCH (21:36)
--- NOTE | 2018-08-09 22:00 | CARD ---
APPROVED REPORT Date of service: 08/09/2018 EKG Measurement Heart [id number] <Conclusion> Normal sinus rhythm Nonspecific T wave abnormality Abnormal ECG
[2018-08-10] MEDS: Albuterol-Ipratrop 3 mg / 0.5 (3 ml) UD IH SCH ×6 (01:17→20:27)
[2018-08-10] MEDS: Brimonidine 0.15% 50 DROP/5 ML BOTTLE OU SCH ×3 (02:29→21:34)
[2018-08-10 06:29] LABS: HEMOGLOBIN 11.3 g/dL (12.0-16.0); LYMPH # 1.6 (1.2-3.4); LYMPH % 16.7 % (22.0-35.0); MEAN CELL VOLUME 87.5 fl (80.0-105.0); MEAN CORPUSCULAR HEMOGLOBIN 30.6 pg (25.0-35.0); MEAN PLATELET VOLUME 10.4 fl (7.0-11.0); MONO # 0.8 (0.1-0.6); MONO % 8.6 % (1.0-6.0); RBC 3.69 10^6/uL (3.5-6.1); RED CELL DISTRIBUTION WIDTH 13.4 % (11.5-14.5); WHITE BLOOD COUNT 9.5 10^3/uL (4.5-11.0)
[2018-08-10 06:51] LABS: ALB/GLOB RATIO 1.2 (1.1-1.8); ALBUMIN 4.2 g/dL (3.0-4.8); ALT/SGPT 42 U/L (7-56); AST/SGOT 41 U/L (14-36); BLOOD UREA NITROGEN 46 mg/dL (7-21); CALCIUM 9.6 mg/dL (8.4-10.5); GFR NON-AFRICAN AMERICAN > 60
[2018-08-10] MEDS: Arformoterol 15 mcg/2 ml Inh Sol IH SCH ×2 (07:50→20:27)
[2018-08-10] MEDS: Budesonide 0.25 mg/2 ml Inhal Susp UD IH SCH ×2 (07:50→20:27)
[2018-08-10] MEDS: Pantoprazole 40 mg EC Tab PO SCH (08:12)
[2018-08-10] MEDS: Insulin Reg-HIGH-Coverage SC SCH ×4 (08:12→21:35)
[2018-08-10] MEDS: Potassium Chloride 20 mEq/15 ml LIQ UD NG SCH ×2 (09:50→17:54)
[2018-08-10] MEDS: Enoxaparin 40 mg Syringe SC SCH (09:50)
[2018-08-10] MEDS: cefTRIAXone 1 gm 1 GM/100 ML BAG IVPB SCH (09:52)
[2018-08-10] MEDS: Insulin Detemir 100 units/ml Vial (Levemir) SC SCH ×2 (09:56→21:35)
[2018-08-10] MEDS: Latanoprost 2.5 ml Opht Soln OU SCH (21:34)
[2018-08-10] MEDS ORDERED: DiphenhydrAMINE 50 mg/ml Inj IVP ONE (23:14)
[2018-08-11] MEDS: Albuterol-Ipratrop 3 mg / 0.5 (3 ml) UD IH SCH ×7 (00:04→23:31)
[2018-08-11] MEDS: Brimonidine 0.15% 50 DROP/5 ML BOTTLE OU SCH ×2 (03:36→11:40)
[2018-08-11] MEDS: Arformoterol 15 mcg/2 ml Inh Sol IH SCH ×2 (07:55→20:16)
[2018-08-11] MEDS: Budesonide 0.25 mg/2 ml Inhal Susp UD IH SCH ×2 (07:56→20:17)
[2018-08-11] MEDS: Insulin Reg-HIGH-Coverage SC SCH ×4 (08:04→22:32)
[2018-08-11] MEDS: Pantoprazole 40 mg EC Tab PO SCH (08:04)
[2018-08-11 08:26] LABS: EOS # 0.1 (0.0-0.7); EOS % 0.7 % (1.5-5.0); HEMOGLOBIN 11.6 g/dL (12.0-16.0); LYMPH # 2.5 (1.2-3.4); LYMPH % 32.8 % (22.0-35.0); MEAN CORPUSCULAR HEMOGLOBIN 28.9 pg (25.0-35.0); MEAN CORPUSCULAR HGB CONC 32.9 g/dl (31.0-37.0); MEAN PLATELET VOLUME 10.1 fl (7.0-11.0); MONO # 0.9 (0.1-0.6); MONO % 11.8 % (1.0-6.0); RBC 4.01 10^6/uL (3.5-6.1); RED CELL DISTRIBUTION WIDTH 13.1 % (11.5-14.5); WHITE BLOOD COUNT 7.6 10^3/uL (4.5-11.0)
[2018-08-11 08:47] LABS: ALB/GLOB RATIO 1.1 (1.1-1.8); ALBUMIN 3.9 g/dL (3.0-4.8); ALT/SGPT 48 U/L (7-56); AST/SGOT 36 U/L (14-36); BLOOD UREA NITROGEN 30 mg/dL (7-21); CALCIUM 9.6 mg/dL (8.4-10.5); GFR NON-AFRICAN AMERICAN > 60
[2018-08-11] MEDS: Insulin Detemir 100 units/ml Vial (Levemir) SC SCH ×2 (10:11→22:55)
[2018-08-11] MEDS: Potassium Chloride 20 mEq/15 ml LIQ UD NG SCH ×2 (10:11→17:41)
[2018-08-11] MEDS: Enoxaparin 40 mg Syringe SC SCH (10:11)
--- NOTE | 2018-08-11 14:04 | CON ---
DATE OF CONSULTATION: 08/11/2018 IDENTIFYING INFORMATION: The patient is a 78-year-old, , -Citizen Of [place] female, who as in a prior interaction with us, agitated state. I have reviewed her situation with nursing. The patient has been transferred from the [facility] because of breathing difficulties. During my previous interaction with her, I had started, with some success on low-dose Risperdal, and we will pursue that same course of treatment presently. I am surprised pleasantly to find out that the patient at least in her present state is calm, where she is in the hospital, where she had breathing difficulties, was able to tell me that she was born in 1941, was aware that today was a Tuesday, 08/09. 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 She has had multiple children (11) and comes from a large family of siblings herself. Prior to her present admission, she had been found unresponsive, in respiratory distress at the [facility] in [place]. The patient does carry with her a prior diagnosis of dementia of the Alzheimer's type. She also has a history of ASHD, COPD, CHF, hypertension, insulin-dependent diabetes, hyperlipidemia, a history of sacral decubiti, somewhere in her chart is a diagnosis of paranoid schizophrenia, degenerative osteoarthritis, and anemia of chronic disease. She had been intubated several months ago because of respiratory failure. She has a history of noncompliance with a CPAP machine and nasal oxygen. She had a workup, unremarkable, at the [facility] for iron-deficiency anemia in the recent past. Her laboratory values were reviewed as were her vital signs. As noted, we will presently start the patient on low-dose Risperdal. Mo Escamilla MD/ PhD
[2018-08-11] MEDS: Latanoprost 2.5 ml Opht Soln OU SCH (22:58)
[2018-08-12] MEDS: Brimonidine 0.15% 50 DROP/5 ML BOTTLE OU SCH ×4 (00:44→21:39)
[2018-08-12] MEDS: Pantoprazole 40 mg EC Tab PO SCH (06:30)
[2018-08-12 07:04] LABS: EOS # 0.1 (0.0-0.7); EOS % 0.8 % (1.5-5.0); HEMOGLOBIN 11.4 g/dL (12.0-16.0); LYMPH # 2.3 (1.2-3.4); LYMPH % 30.9 % (22.0-35.0); MEAN CELL VOLUME 90.5 fl (80.0-105.0); MEAN CORPUSCULAR HEMOGLOBIN 29.3 pg (25.0-35.0); MEAN CORPUSCULAR HGB CONC 32.4 g/dl (31.0-37.0); MEAN PLATELET VOLUME 10.7 fl (7.0-11.0); MONO # 0.8 (0.1-0.6); MONO % 11.2 % (1.0-6.0); RBC 3.89 10^6/uL (3.5-6.1); RED CELL DISTRIBUTION WIDTH 13.1 % (11.5-14.5); WHITE BLOOD COUNT 7.4 10^3/uL (4.5-11.0)
[2018-08-12 07:34] LABS: ALB/GLOB RATIO 1.1 (1.1-1.8); ALBUMIN 3.5 g/dL (3.0-4.8); ALT/SGPT 39 U/L (7-56); AST/SGOT 25 U/L (14-36); BLOOD UREA NITROGEN 43 mg/dL (7-21); CALCIUM 9.4 mg/dL (8.4-10.5); GFR NON-AFRICAN AMERICAN > 60
[2018-08-12] MEDS: Arformoterol 15 mcg/2 ml Inh Sol IH SCH ×2 (08:47→19:58)
[2018-08-12] MEDS: Budesonide 0.25 mg/2 ml Inhal Susp UD IH SCH ×2 (08:48→19:58)
[2018-08-12] MEDS: Albuterol-Ipratrop 3 mg / 0.5 (3 ml) UD IH SCH ×5 (08:48→23:44)
[2018-08-12] MEDS: Insulin Reg-HIGH-Coverage SC SCH ×4 (10:07→21:38)
[2018-08-12] MEDS: Enoxaparin 40 mg Syringe SC SCH (10:10)
[2018-08-12] MEDS: Potassium Chloride 20 mEq/15 ml LIQ UD NG SCH ×2 (10:12→17:28)
[2018-08-12] MEDS: Insulin Detemir 100 units/ml Vial (Levemir) SC SCH ×2 (10:20→21:39)
[2018-08-12] MEDS: Latanoprost 2.5 ml Opht Soln OU SCH (21:40)
[2018-08-13] MEDS: Brimonidine 0.15% 50 DROP/5 ML BOTTLE OU SCH ×3 (04:22→21:45)
[2018-08-13] MEDS: Albuterol-Ipratrop 3 mg / 0.5 (3 ml) UD IH SCH ×6 (05:10→23:41)
[2018-08-13] MEDS: Budesonide 0.25 mg/2 ml Inhal Susp UD IH SCH ×2 (08:06→19:23)
[2018-08-13] MEDS: Arformoterol 15 mcg/2 ml Inh Sol IH SCH ×2 (08:10→19:23)
[2018-08-13] MEDS: Insulin Reg-HIGH-Coverage SC SCH ×4 (08:15→21:51)
[2018-08-13] MEDS: Pantoprazole 40 mg EC Tab PO SCH (08:26)
[2018-08-13] MEDS: Insulin Detemir 100 units/ml Vial (Levemir) SC SCH ×2 (09:20→21:45)
[2018-08-13] MEDS: Enoxaparin 40 mg Syringe SC SCH (11:21)
[2018-08-13] MEDS: Potassium Chloride 20 mEq/15 ml LIQ UD NG SCH ×2 (11:22→17:56)
--- NOTE | 2018-08-13 15:12 | RAD ---
Date of service: 08/13/2018 HISTORY: Evaluate for pneumonia COMPARISON: 08/08/2018. TECHNIQUE: Chest PA and lateral FINDINGS: LINES AND TUBES: None. LUNG AND PLEURA: The lungs are well inflated and clear. No pleural effusion or pneumothorax. HEART AND MEDIASTINUM: The heart is not enlarged. There are aortic atherosclerotic calcifications present. The hilar and mediastinal contours are within normal limits. SKELETAL STRUCTURES: The bony structures are within normal limits for the patient's age. VISUALIZED UPPER ABDOMEN: Normal. OTHER FINDINGS: None. IMPRESSION: No active pulmonary disease.
--- NOTE | 2018-08-13 15:37 | PN ---
DATE: 08/10/2018 SUBJECTIVE: This 78-year-old female was examined at her bedside on the cardiac [facility] of the [facility] on the morning of , 08/10/2018. This case was reviewed with nurse, Carrol Urrutia, registered nurse, and Lois Marley, case sealer. The patient remains weak and deconditioned. She is being treated with parenteral antibiotics for bilateral apical pneumonia. She still has periods of agitation and belligerence and refuses to wear BiPap on a consistent basis. I have asked nurse Renan to reach out to Respiratory Therapy to determine based on her alf BiPap machine if there is a more comfortable mask that she may be trained to how to use. At present, the patient is lying in bed. She is alert but confused and remains in a normal sinus rhythm on rn cardiac rehab. PHYSICAL EXAMINATION: VITAL SIGNS: Temperature was 97.3, respirations 20, pulse 78 and blood pressure 170/78. Pulse ox 100% on 2 liters nasal O2. HEENT: Head: Normocephalic, atraumatic. Eyes: No icterus. Ears: Clear. Throat: Noninjected. NECK: Supple. HEART: S1, S2. LUNGS: With occasional rhonchi that improved with coughing. ABDOMEN: Soft. EXTREMITIES: No edema. SKIN: Without rash. NEUROLOGICAL: Deconditioned. VASCULAR: Legs warm to touch. PSYCHOLOGICAL: Alert, easily agitated. NEUROLOGIC: Nonfocal findings. LABORATORY DATA: White count 9500, hemoglobin 11.3, hematocrit 32.3, platelets 159,000. Sodium 137, K 4.2, chloride 94, bicarb 36, BUN 46, creatinine 0.9, random blood sugar 257. Bilirubin 0.5, AST 41, ALT 42, alk phos 84. IMPRESSION: A 78-year-old female, status post respiratory arrest with CO2 retention, secondary to her refusal to wear bilevel positive airway pressure and history of chronic obstructive pulmonary disease, glaucoma, organic brain syndrome, Alzheimer's type, anxiety neurosis, chronic hypertension, atherosclerotic heart disease, insulin-dependent diabetes mellitus, peptic ulcer disease with gastroesophageal reflux disease, degenerative arthritis and anemia of chronic disease. PLAN: Maintain this patient on parenteral antibiotics. She continues on pulmonary toiletry. She will continue on glaucoma eyedrops, Ativan p.r.n., Brovana inhalational therapy, clonidine p.r.n. accelerated hypertension, dual nebulizers, Ecotrin, insulin, Lasix, Lopressor, subcu Lovenox, Norvasc, Plavix, oral potassium, prednisone, Protonix, Risperdal, Zestril and IV Rocephin and oral Zithromax. Based on her clinical progress, additional diagnostic workup and testing will be entertained. All of the above was reviewed with nursing and the patient. All questions were answered. Mikayla Rodriguez MD MTDLeann
--- NOTE | 2018-08-13 15:47 | PN ---
DATE: 08/11/2018 SUBJECTIVE: This 78-year-old female was examined at her bedside on the morning of 08/11/2018. Present for this interview was her nurse and case was reviewed with Dr. Escamilla from Psychiatry. The patient still has periods of agitation and belligerence making her management difficult for the cardiac unit nurses. She refuses to wear BiPap and this is a repetitive problem with respiratory failure which her daughter, Randy Vanegas, is clearly aware of. She remains in sinus rhythm on manager cardiac cath. PHYSICAL EXAMINATION: VITAL SIGNS: Temperature 98.6, respirations 20, pulse 70 and blood pressure 161/78. Physical exam remains unchanged. LABORATORY DATA: White count 7600, hemoglobin 11.6, hematocrit 35.3, platelets 147,000. Random blood sugar 105. Sodium 139, K 3.9, chloride 95, bicarb 41, BUN 30, creatinine 0.7, random blood sugar 105. All liver function testing is normal. IMPRESSION: This is a 78-year-old female with exacerbation of chronic obstructive pulmonary disease, apical infiltrates on chest x-ray and comorbidities of respiratory failure secondary to CO2 narcosis in a patient who refuses to wear bilevel positive airway pressure at h.s. and comorbidities of glaucoma, organic brain syndrome, Alzheimer's, agitation, atherosclerotic heart disease, hypertension, insulin-dependent diabetes mellitus, anemia of chronic disease, degenerative arthritis and glaucoma. PLAN: Continue Risperdal as per Dr. Escamilla from Psychiatry 0.5 mg p.o. h.s. while also treating the patient with antibiotics, pulmonary toiletry and medications as outlined. I have asked the nursing staff to discuss with the [facility] the model of her BiPap machine to see if we can afford her a more comfortable fitting mask and ultimate plan will be to return her to [facility] for her prison care which remains poor given her multiple comorbidities and history of respiratory insufficiency secondary to CO2 narcosis. All of the above has been reviewed with her daughter, Randy. All questions were answered. Mikayla Rodriguez MD [facility]ALE[facility]
--- NOTE | 2018-08-13 15:49 | PN ---
DATE: 08/13/2018 SUBJECTIVE: This 78-year-old female was examined on the cardiac antonio on the afternoon of 08/13/2018. This patient was interviewed at her bedside in the presence of nurse Juancarlos Grace, registered nurse. The patient remains easily agitated. We did contact the [facility] where the patient resides and was told that her BIPAP machine is made by [employer]. There was no make our model of machined given and we will ask respiratory therapy it they can provide further information regarding an alternate face mask given this information. PHYSICAL EXAMINATION: VITAL SIGNS: At present, she is in a normal sinus rhythm on phototypesetting equipment monitor with temperature 97.3, respirations 20, pulse 79 and blood pressure 159/81 with pulse ox 98%. HEENT: Head is normocephalic, atraumatic. Eyes; no icterus. Ears; clear. Throat; non-injected. NECK: Supple. HEART: S1, S2. LUNGS: Clear. ABDOMEN: Soft. EXTREMITIES: No edema. SKIN: Without rash. NEUROLOGIC: Intact. PSYCHOLOGIC: Easily agitated and confused, but alert. VASCULAR: Legs warm to touch. LABORATORY DATA: White count 7400, hemoglobin 11.4, hematocrit 35.2, platelets 155,000. Random blood sugar was 118. IMPRESSION: This is a 78-year-old female admitted with bilateral apical infiltrates on chest x-ray, respiratory failure that required intubation secondary to CO2 narcosis in the setting of noncompliance with outpatient bilevel positive airway pressure and comorbidities of organic brain syndrome, Alzheimer's dementia, agitation syndrome, glaucoma, chronic obstructive pulmonary disease, chronic hypertension, insulin-dependent diabetes mellitus, atherosclerotic heart disease, chronic obstructive pulmonary disease, peptic ulcer disease, paranoid schizophrenia and recent pneumonia. PLAN: The plan as discussed with the patient and nursing will be to obtain a PA and lateral chest x-ray. She also was scheduled to have BIPAP at bedtime, heart-healthy diet, heel protectors, skin precautions, air mattress, fall precautions, physical and occupational therapy. She will continue on Zithromax, Zestril, glaucoma eyedrops, Risperdal, Pulmicort inhalational therapy, Protonix, prednisone, potassium, Plavix, Norvasc, subcu Lovenox, Lopressor, Levemir, Lasix, insulin, Ecotrin, dual nebulizer, clonidine, Brovana p.r.n. Ativan and based on clinical results of chest x-ray discharge planning will be entertained. Greater than 35 minutes was spent in the care management, review of labs, orders, x-rays and discussion of this patient with herself and nursing. All questions were answered. Mikayla Rodriguez MD MTDD
--- NOTE | 2018-08-13 15:58 | PN ---
DATE: 08/12/2018 SUBJECTIVE: This 78-year-old female was examined at her bedside on the morning of 08/12/2018, in the presence of nurse, Nelsy Grace, registered nurse. The patient is easily agitated. She was disruptive during my interview with nurse Grace. She seemed to be confabulating and according to the nurse is easily agitated despite her introduction to Risperdal 0.5 mg as ordered by Dr. Escamilla from Psychiatry. PHYSICAL EXAMINATION: VITAL SIGNS: She was in a normal sinus rhythm with a temperature of 97.6, respirations 20, pulse 65 and blood pressure 155/76. Physical exam unchanged. LABORATORY DATA: Random blood sugar was 281. White count 7400, hemoglobin 11.4, hematocrit 35.2, platelets 155,000. IMPRESSION: This is a 78-year-old female with bilateral apical infiltrates on admission chest x-ray, status post respiratory failure secondary to CO2 narcosis in a patient with chronic obstructive pulmonary disease who refuses to wear her bilevel positive airway pressure at h.s. and has comorbidities of glaucoma, organic brain syndrome, Alzheimer's type, agitation, atherosclerotic heart disease, insulin-dependent diabetes mellitus, hypertension, anemia of chronic disease, degenerative arthritis and glaucoma. PLAN: Continue medications as outlined as discussed with nurseSanjay. She will be ordered to receive Ativan 1 mg IV every 6 hours p.r.n. agitation. She is continuing on glaucoma eyedrops, pulmonary toiletry with Brovana inhalational therapy and dual nebulizers, insulins, Lasix, Lopressor, Norvasc and Plavix, potassium, prednisone, Protonix, Risperdal and Zestril. I will order a chest x-ray for the a.m. I am asking Nursing to check with Respiratory Therapy regarding a more comfortable mask for her [facility]ap machine at the [facility] and once this is resolved with Social Service and x-ray shows improvement, she will be readied for discharge to [facility] for [facility] care. Greater than 35 minutes was spent in her management and discussion with nurse Grace. All questions were answered. Mikayla Rodriguez MD [facility] # [id number]
[2018-08-13] MEDS: Latanoprost 2.5 ml Opht Soln OU SCH (21:45)
[2018-08-14] MEDS: Albuterol-Ipratrop 3 mg / 0.5 (3 ml) UD IH SCH ×3 (04:10→11:13)
[2018-08-14 06:40] VITALS: PULSE 88
[2018-08-14 07:28] VITALS: BP 155/72; RESP 20; TEMP 97.6; O2SAT 97
[2018-08-14] MEDS: Budesonide 0.25 mg/2 ml Inhal Susp UD IH SCH (07:56)
[2018-08-14] MEDS: Arformoterol 15 mcg/2 ml Inh Sol IH SCH (07:56)
[2018-08-14] MEDS: Pantoprazole 40 mg EC Tab PO SCH (08:16)
[2018-08-14] MEDS: Insulin Reg-HIGH-Coverage SC SCH ×2 (08:17→12:26)
[2018-08-14] MEDS: Potassium Chloride 20 mEq/15 ml LIQ UD NG SCH (10:48)
[2018-08-14] MEDS: Insulin Detemir 100 units/ml Vial (Levemir) SC SCH (10:49)
[2018-08-14] MEDS: Brimonidine 0.15% 50 DROP/5 ML BOTTLE OU SCH (12:26)
--- NOTE | 2018-08-14 22:55 | PN ---
DATE: 08/14/2018 SUBJECTIVE: The patient is a 78-year-old female who was initially seen in an agitated state. She has a history of ASHD, COPD, CHF, hypertension, insulin-dependent diabetes, hyperlipidemia, history of sacral decubiti, osteoarthritis, and anemia of chronic disease. She is a halfway resident, who was admitted here because of difficulty in breathing. She was agitated and had been started on low-dose Risperdal. I have reviewed her situation with nursing. The patient was alert, can get easily agitated, but was not agitated prior to her discharge. She is disoriented. Psychotropically, she was being maintained on low-dose Risperdal (0.5 mg at bedtime). PHYSICAL EXAMINATION: VITAL SIGNS: Blood pressure 155/72 and pulse 88. LABORATORY DATA: Blood sugar on 08/14/2018 was 269. ASSESSMENT AND PLAN: The patient appeared comfortable on the last hospital stay with periods of confusion. She was not considered to be in any acute distress. Mo Escamilla MD/ PhD
--- NOTE | 2018-08-14 23:48 | DS ---
DATE OF EVALUATION; 08/14/2018. FINAL DIAGNOSES: Respiratory failure, bilateral apical pneumonia resolved, hypercapnia secondary to chronic obstructive sleep apnea, patient with chronic noncompliance with BiPAP, glaucoma, organic brain syndrome, Alzheimer's belligerence and agitation, paranoid schizophrenia, chronic hypertension, stable atherosclerotic heart disease, insulin-dependent diabetes mellitus, peptic ulcer disease with gastroesophageal reflux disease, degenerative arthritis, and anemia of chronic disease. DISPOSITION: [facility] [place]. DISCHARGE DIET: Heart healthy diabetic. DISCHARGE MEDICATIONS: Glaucoma eyedrops to be verified by her oil deliverer including Alphagan 0.1% 1 drop both eyes t.i.d., she will take Alphagan 1 drop t.i.d., clonidine 0.1 mg p.o. q.4 h. p.r.n. accelerated hypertension if systolic blood pressure greater than 160 or diastolic blood pressure greater than 100, Xopenex inhalational therapy 0.63 mg t.i.d., Ecotrin 81 mg daily, Humulin R high-dose insulin coverage a.c. meals and at bedtime, Lasix 20 mg p.o. b.i.d., Levemir 20 units a.c. breakfast, dinner, Lopressor 100 mg b.i.d., Norvasc 10 mg p.o. daily, Plavix 75 mg p.o. daily, K-Dur 20 mEq p.o. b.i.d., Solu-Medrol Dosepak taper, Pepcid 20 mg p.o. at bedtime, Risperdal 0.5 mg p.o. at bedtime, and Zestril 20 mg p.o. b.i.d. FOLLOWUP: The patient will follow up with ophthalmology regarding eyedrops and eye exam. She is ordered to have BiPAP, psychiatric evaluation. HOSPITAL COURSE: In summary, this 78-year-old female was admitted to [facility] after experiencing respiratory failure secondary to hypercapnia secondary to chronic noncompliance with [facility]AP at the local [facility]. Admission chest x-ray showed biapical infiltrates. The patient was treated with parenteral Rocephin and Zithromax and at the time of discharge, vital signs showed temperature 97.6, respirations 20, pulse 88 and blood pressure 155/72. Pulse ox 97%. Labs at the time of discharge show white count 7400, hemoglobin 11.4, hematocrit 35.2, and platelets 155,000. Random blood sugar was 227. Sodium 138, K 4.1, chloride 95, bicarb 40, BUN 43, creatinine 0.9, calcium 9.4, bilirubin 0.5, AST 25, ALT 39, and alk phos 69. The patient is discharged to home to the care of [facility], [place]. She was seen in consultation by Dr. Escamilla from Psychiatry who recommended the continuation of her Risperdal. I will ask her [facility] team to have the psychiatrist on staff there further evaluate her psychiatric/psychotropic needs as well as ophthalmological eyedrops for dosing corrections and additional diagnostic workup and testing will be entertained based on her clinical progress because of her continued noncompliance with her BiPAP as discussed repeatedly with her daughter, Randy Vanegas. Overall prognosis remains poor. Greater than 35 minutes was spent in the discharge management of this patient today and review of her chart with [facility] nursing as well as her [facility] [place] nurses. All questions were answered Mikayla Rodriguez MD [facility]
== END 2018-08-14 16:15 | DRG 208 ==
LOC: ED 01:23 → ERH 05:52 → CCU 07:23 → 3RNO 08-09 13:21
PROVIDERS: ADMIT Internal Medicine; ATTEND Internal Medicine
PROC: 5A1945Z Respiratory Ventilation, 24-96 Consecutive Hours (ICD-10-PCS; principal; 2018-08-07)
PROC: 0BH18EZ Insertion of Endotracheal Airway into Trachea, Via Natural or Artificial Opening Endoscopic (ICD-10-PCS; 2018-08-07)
DX: J44.1 Chronic obstructive pulmonary disease with (acute) exacerbation (principal); J18.9 Pneumonia, unspecified organism; J96.22 Acute and chronic respiratory failure with hypercapnia; E87.3 Alkalosis; F20.0 Paranoid schizophrenia; F02.81 Dementia in other diseases classified elsewhere, unspecified severity, with behavioral disturbance; J44.0 Chronic obstructive pulmonary disease with (acute) lower respiratory infection; I11.0 Hypertensive heart disease with heart failure; D63.8 Anemia in other chronic diseases classified elsewhere; G30.9 Alzheimer's disease, unspecified; E11.9 Type 2 diabetes mellitus without complications; F32.9 Major depressive disorder, single episode, unspecified; F20.9 Schizophrenia, unspecified; I25.10 Atherosclerotic heart disease of native coronary artery without angina pectoris; R41.82 Altered mental status, unspecified; Z87.891 Personal history of nicotine dependence; D50.9 Iron deficiency anemia, unspecified; Z91.19 Patient's noncompliance with other medical treatment and regimen; E78.5 Hyperlipidemia, unspecified; F41.1 Generalized anxiety disorder; G47.33 Obstructive sleep apnea (adult) (pediatric); H40.9 Unspecified glaucoma; I50.9 Heart failure, unspecified; K21.9 Gastro-esophageal reflux disease without esophagitis; M19.90 Unspecified osteoarthritis, unspecified site; Z79.02 Long term (current) use of antithrombotics/antiplatelets; Z79.4 Long term (current) use of insulin; Z79.82 Long term (current) use of aspirin; Z87.01 Personal history of pneumonia (recurrent); Z87.11 Personal history of peptic ulcer disease